=== PATIENT | female | born 1945 | race Caucasian/White ===

== ENCOUNTER → 2020-07-11 12:36 | Outpatient (CLI) | payer MEDICARE, SELFPAY ==
--- NOTE | ~2020-07-11 | XR_ITS ---
EXAMINATION: XR knee RT min 4V DATE: 07/11/2020 13:03 INDICATION: Right knee pain. TECHNIQUE: 4 views of right knee were obtained. COMPARISON: None. FINDINGS: Bone alignment is normal. No fracture. There is moderate osteoarthritis of medial compartme nt and mild osteoarthritis of lateral and patellofemoral compartments. There is a small knee joint ef fusion. IMPRESSION: 1. Moderate right knee osteoarthritis. 2. Small right knee joint effusion. Reviewed, dictated and finalized at location B.
== END ==
PROVIDERS: PCP Family Medicine Adolescent Medicine; Visit Provider Family Medicine Adolescent Medicine
DX: M17.11 Unilateral primary osteoarthritis, right knee (principal); M25.461 Effusion, right knee
CPT/HCPCS: 73564

== ENCOUNTER → 2020-11-20 12:30 | Outpatient (CLI) | payer MEDICARE, SELFPAY ==
--- NOTE | ~2020-11-20 | DEXA_ITS ---
Bone Density Report Name: Shay Crouch Age: 75 Sex: Female Ethnicity: White Date of : 1945 Indication: postmenopausal; screening for osteoporosis; height loss; prior fracture; Referring Provider: BRIAN HAWK Study: Bone densitometry was performed. Exam Date: November 20, 2020 Accession number: [id number] Bone Density: Region BMD T-score Z-score Classification Femoral Neck (Left) 0.711 -1.2 1.0 Osteopenia Total Hip (Left) 0.894 -0.4 1.5 Normal Femoral Neck (Right) 0.693 -1.4 0.8 Osteopenia Total Hip (Right) 0.907 -0.3 1.6 Normal Total Hip Mean 0.901 -0.4 1.6 Normal World Health Organization criteria for BMD impression classify patients as: Normal (T-score at or above -1.0), Osteopenia (T-score between -1.0 and -2.5), or Osteoporosis (T-score at or below -2.5). 10-year Fracture Risk: FRAX not reported because: Prior hip or vertebral fracture Previous Exams: Region Exam Age BMD T-score BMD Change BMD Change Date g/cm2 vs Baseline vs Previous Total Hip(Left) 11/20/2020 75 0.894 -0.4 -0.096 0.048* 03/25/2017 72 0.847 -0.8 -0.144 -0.060 10/02/2014 69 0.906 -0.3 -0.084* 0.015 08/25/2012 67 0.891 -0.4 -0.099 -0.135* 08/25/2009 64 1.027 0.7 0.036 0.036 07/06/2006 61 0.990 0.4 Total Hip(Right) 11/20/2020 75 0.907 -0.3 -0.089 0.059* 03/25/2017 72 0.848 -0.8 -0.148 -0.056* 10/02/2014 69 0.904 -0.3 -0.093 -0.045* 08/25/2012 67 0.949 0.1 -0.048 -0.073* 08/25/2009 64 1.022 0.7 0.025 0.025 07/06/2006 61 0.997 0.4 *Denotes significance at 95% confidence level, LSC for Total Hip = 0.027 g/cm2 Clinical Information Provided by Patient: Have had a previous hip or vertebral fracture Has had a low trauma fracture Has used the following medications: Vitamin D Patient maximum height was 64 Menopause Age: 43 Does not regularly consume dairy products Drinks caffeinated beverages Onset of menses at age 11 Number of children 0 Impression: The patient has low bone mass, based on the Right Femoral Neck T-score. The patient has risk factors, including: previous fracture. No significant bone loss was observed. Discussion: INCREASED RISK OF FRACTURE DUE TO HISTORY OF FRACTURE. The patient's previous fracture puts the patient at high risk of a future fracture.
== END ==
PROVIDERS: PCP Family Medicine Adolescent Medicine; Visit Provider Family Medicine Adolescent Medicine
DX: Z78.0 Asymptomatic menopausal state (principal); M85.852 Other specified disorders of bone density and structure, left thigh; M85.851 Other specified disorders of bone density and structure, right thigh
CPT/HCPCS: 77080

== ENCOUNTER → 2021-02-11 08:49 | Outpatient (CLI) | payer MEDICARE, SELFPAY ==
--- NOTE | ~2021-02-11 | XR_ITS ---
EXAMINATION: XR chest 2V DATE: 02/11/2021 09:06 INDICATION: Dyspnea. Chronic obstructive pulmonary disease. TECHNIQUE: Frontal and lateral views of the chest were obtained. COMPARISON: Chest 2 views 10/30/2018 FINDINGS: The chest demonstrates clear lungs without pneumonia, pleural effusion, or pneumothorax. Th e heart size is normal. There is an old healed fracture of distal right clavicle. There is an old hea led fracture of right seventh rib. There is mild chronic anterior wedging of T12 and L1 vertebral bod ies. IMPRESSION: 1. No acute cardiopulmonary disease. Reviewed, dictated and finalized at location B. URCE SPECIALIST
== END ==
PROVIDERS: PCP Family Medicine Adolescent Medicine; Visit Provider Family Medicine Adolescent Medicine
DX: R06.09 Other forms of dyspnea (principal); J44.9 Chronic obstructive pulmonary disease, unspecified
CPT/HCPCS: 71046

== ENCOUNTER 2021-03-27 09:01 | Outpatient (CLI) | payer MEDICARE, SELFPAY ==
--- NOTE | 2021-03-27 16:06 | WPDPFTINT ---
PFT Procedure Performed PFT Procedure Performed Flow Vol Loop Spirometry w/o Bronchodil PFT Interpretation This is a pulmonary function test with spirometry. The test was performed and results interpreted in accordance with the 2019 and 2005 ATS/ERS Task Force guidelines respectively using the Global Lung Function Initiative-2012 reference equations. Patient demonstrated good effort and cooperation. Reproducibility criteria were met. The quality of the spirometry maneuver was Grade A. Findings: Spirometry: The contour the inspiratory and expiratory flow tracing are normal. The FVC FVC is 2.48 L, 99% predicted. The FEV1 is 1.75 L, 91% predicted. The FEV1: FVC ratio 70%. In comparison to prior pulmonary function test on 11/28/2018 the FVC is unchanged from 2.45 L to 2.48 L. The FEV1 is unchanged from 1.94 L to 1.75 L. Impression: The spirometry is normal without evidence of an obstructive abnormality. in comparison to previous pulmonary function test on 11/28/2018 there has been no significant change in the FVC or FEV1. There are no prior studies for comparison
== END 2021-03-27 09:02 | disposition home or self-care (01) ==
PROVIDERS: PCP Family Medicine Adolescent Medicine; Visit Provider Family Medicine Adolescent Medicine
DX: J44.9 Chronic obstructive pulmonary disease, unspecified (principal); R06.00 Dyspnea, unspecified
CPT/HCPCS: 94375

== ENCOUNTER → 2022-01-11 14:41 | Outpatient (CLI) | payer MEDICARE, SELFPAY ==
--- NOTE | ~2022-01-11 | XR_ITS ---
XR lumbar spine 2-3V DATE: 01/11/2022 15:07 INDICATION: Low back pain TECHNIQUE: AP, lateral, coned lateral lumbosacral views COMPARISON: 09/14/2018 lumbar spine FINDINGS: Again noted are pedicle screws and rods and interbody spinal fusion at L4-5. Stable grade 2 anterolisthesis at L4-5. Status post vertebroplasty at L2 apparent compression fracture, stable since 09/14/2018. Severe degenerative disc disease at L1-2. Diffuse idiopathic skeletal hyperostosis of the thoracic spine. Diffuse osteopenia.. Extensive calcification of the abdominal aorta, without evidence of aneurysm. Status post cholecystectomy IMPRESSION: Little interval change since 09/14/2018 Reviewed, dictated and finalized at location A.
== END ==
PROVIDERS: PCP Family Medicine Adolescent Medicine; Visit Provider Family Medicine Adolescent Medicine
DX: M54.50 Low back pain, unspecified (principal)
CPT/HCPCS: 72100

== ENCOUNTER 2022-12-16 00:11 | Day surgery (SDC) | payer MEDICARE, SELFPAY ==
[2022-12-02 13:59] VITALS: BMI 35.5
--- NOTE | 2022-12-15 14:11 | PC.NURSE ---
pt called in to ask if she could have something to drink after midnight prior to her egd scheduled for tomorrow dec 16. clarified with her the only liquid she would be allowed would be sip of water with her levothyroxine. informed she would be getting iv fluids on arrival and she would be allowed water after procedure. voiced understanding.
[2022-12-16 07:39] VITALS: BP 124/68; PULSE 79; RESP 20; TEMP 36.5; O2SAT 96
--- NOTE | 2022-12-16 07:55 | PM.HPGS ---
History of Present Illness History of Present Illness Consent: Risks, benefits, and alternatives have been discussed and questions answered. Patient agrees to proceed with procedure. Chief complaint: Heartburn, Narrative: Shay Crouch is a 77 year old female Referred because of upper abdominal burning and cramping. She also had substernal discomfort. Patient reports taking a significant amount of ibuprofen. She discontinued this and has noticed some improvement over the last 4-5 weeks. Past medical history is significant for gastritis and duodenitis identified by Dr. Fernandez on previous EGD in 2015. Patient has been on pantoprazole 40mg p.o. b.i.d. since that time. She continues to take this medication. Patient referred today for EGD because of heartburn and epigastric discomfort. Review of Systems Review of Systems: Review of systems noncontributory. COUNTS INCLUDE 234 BEDS AT THE [facility] Past Medical History Medical History Alcoholism Anxiety Bipolar disorder COPD (chronic obstructive pulmonary disease) CPAP (continuous positive airway pressure) dependence Depression Diarrhea DISH (diffuse idiopathic skeletal hyperostosis) cxr 08/2017 Excessive thirst Fibroids Finger fracture Fuchs' corneal dystrophy GERD (gastroesophageal reflux disease) Glaucoma HTN (hypertension) Hypothyroid IBS (irritable bowel syndrome) Osteopenia CXR 08/2017 Osteoporosis Schizophrenia Sciatica of left side Sleep apnea Spinal stenosis Stress incontinence Unilateral primary osteoarthritis, right knee UTI (urinary tract infection) Surgical History Surgical History H/O bilateral oophorectomy partial H/O breast surgery fibroid/lump Right breast 1999 History of appendectomy History of bladder surgery urethra tied up for stress incontinence History of cholecystectomy 01/2016 History of discectomy History of hemorrhoidectomy History of laminectomy 2017 History of rectal surgery rectal prolapse repair Family History Family History Sibling Depression Heart disease Diabetes mellitus Father Diabetes mellitus Mother Oral cancer Grandparent CAD (coronary artery disease) Other Arthritis Hypertension Neuropathy Social History Social History Years smoked: 30 Smoking status: Former smoker Tobacco type: cigarettes Smoking end date: 05/17/97 Alcohol intake: former Substance use: never Substance use type: does not use Lack of Transportation: No Lack of Food: Never True Current Housing: I Have Housing Concerned About Future Housing: No Difficulty Paying Gas/Electric Bills: No Difficulty Paying for Meds: No Currently Unemployed: No Education: Bachelor's Degree Difficulty w/ Childcare or Family Care: No Living arrangements: alone Occupation/Education: unemployed Gender identity (if verbalized by the patient): Female Sexual Orientation (if Verbalized by the Patient): Straight or Heterosexual Spiritual care concerns: No Agree to blood products: Yes Meds Home Medications and Allergies Home Medications Medication Instructions Recorded Confirmed Type calcium-vitamin D3-vitamin K 500 1 tablet PO DAILY 05/04/21 12/02/22 History mg-200 unit-40 mcg tablet duloxetine 60 mg capsule,delayed 60 mg PO DAILY 05/04/21 12/02/22 History release trazodone 50 mg tablet 50 mg PO QHS PRN Sleep 05/04/21 12/02/22 History lutein 20 mg capsule See Rx Instructions .Route .COMPLEX 07/06/21 12/02/22 History olanzapine 20 mg tablet (Zyprexa) 20 mg PO QHS 07/06/21 12/02/22 History cholecalciferol (vitamin D3) 1,250 1,250 mcg PO WEEKLY #13 caps 10/27/22 12/02/22 Rx mcg (50,000 unit) capsule levothyroxine 50 mcg tablet See Rx Instructions .Route 11/04/22 12/02/22 Rx .COMPLEX
[2022-12-16] MEDS: LACTATED RINGERS 1,000 ML 150 ML IV CONT (07:58)
[2022-12-16 09:11] VITALS: BP 123/70; PULSE 69; RESP 19; O2SAT 98
[2022-12-16 09:21] VITALS: BP 127/74; PULSE 68; RESP 18; O2SAT 96
[2022-12-16 09:31] VITALS: BP 121/71; PULSE 61; RESP 19; O2SAT 98
== END 2022-12-16 09:34 | disposition home or self-care (01) ==
PROVIDERS: PCP Family Medicine Adolescent Medicine; Visit Provider Internal Medicine Gastroenterology
PROC: 0DJ08ZZ Inspection of Upper Intestinal Tract, Via Natural or Artificial Opening Endoscopic (ICD-10-PCS; CPT 43235; principal; 2022-12-16 09:00)
DX: R10.13 Epigastric pain (principal); F31.9 Bipolar disorder, unspecified; F41.9 Anxiety disorder, unspecified; J44.9 Chronic obstructive pulmonary disease, unspecified; M48.10 Ankylosing hyperostosis [Forestier], site unspecified; K21.9 Gastro-esophageal reflux disease without esophagitis; H40.9 Unspecified glaucoma; I10 Essential (primary) hypertension; E03.9 Hypothyroidism, unspecified; F20.9 Schizophrenia, unspecified; Z87.891 Personal history of nicotine dependence; Z87.19 Personal history of other diseases of the digestive system
CPT/HCPCS: 43239; 87081; J2704; J7120

== ENCOUNTER → 2023-04-27 15:41 | Outpatient (CLI) | payer MEDICARE, SELFPAY ==
--- NOTE | ~2023-04-27 | XR_ITS ---
EXAMINATION: XR chest 2V DATE: 04/27/2023 16:33 INDICATION: Chest pain. TECHNIQUE: Frontal and lateral views of the chest were obtained. COMPARISON: Chest 2 views 02/11/2021 FINDINGS: There is no pneumonia, pleural effusion, or pneumothorax. The heart size is normal. IMPRESSION: 1. No acute cardiopulmonary disease. Reviewed, dictated and finalized at location E. MAKER
--- NOTE | ~2023-04-27 | XR_ITS ---
EXAMINATION: XR_CERV2-3V_CR DATE: 04/27/2023 16:33 INDICATION: Neck pain. TECHNIQUE: 5 views of cervical spine including standing views were obtained. COMPARISON: CT cervical spine 09/01/2016 FINDINGS: There is 2 mm anterolisthesis of C6 on C7 and C7 on T1. Vertebral body heights are normal. There is mildly decreased disc height at C6-C7. There is interbody fusion at C2-C3. There is multilev el facet joint osteoarthritis, severe on the left at C3-C4 and C4-C5. No central canal stenosis or pr evertebral soft tissue swelling. IMPRESSION: 1. Mild cervical spondylosis. Reviewed, dictated and finalized at location E. Y LEVEL MANAGEMENT
== END ==
PROVIDERS: PCP Nurse Practitioner Family; Visit Provider Nurse Practitioner Family
DX: R07.89 Other chest pain (principal); M47.22 Other spondylosis with radiculopathy, cervical region
CPT/HCPCS: 71046; 72040

== ENCOUNTER 2023-05-20 08:58 | Outpatient (CLI) | payer MEDICARE, SELFPAY ==
--- NOTE | ~2023-05-20 | NM_ITS ---
EXAMINATION: NM miguel stress w perfusion DATE: 05/20/2023 11:37 INDICATION: Chest pain TECHNIQUE: Rest images were obtained following intravenous administration of 10 mCi Tc99m tetrofosmin (Myoview). The patient was infused intravenously with Lexiscan (Regadenoson). Then, 31.7 mCi Tc99m t etrofosmin (Myoview) was administered intravenously, and stress images were obtained. Data was recons tructed into short axis and horizontal and vertical long axis SPECT images. Gated SPECT images were a lso obtained. COMPARISON: None. FINDINGS: There is no definite reversible or fixed perfusion abnormality to suggest ischemia or infar ction. There is normal left ventricular chamber size, wall motion and ejection fraction. Left ventr icular ejection fraction measures >70%. IMPRESSION: 1. Normal myocardial perfusion at rest and during stress. 2. Left ventricular ejection fraction measuring >70%. Reviewed, dictated and finalized at location B. E PROMOTION ANALYST
--- NOTE | 2023-05-20 09:57 | EST_ITS ---
Patient Info Name: Shay Crouch Age: 78 years : 1945 Gender: Female Ht: 62 in Wt: 192 lbs BSA: 1.99 m2 HR: 76 bpm BP: 148 / 85 mmHg Heart Rhythm: Sinus Rhythm Exam Date: 05/20/2023 10:15 AM Exam Location: [facility] Patient Status: Outpatient Admit Date: 05/20/2023 Staff Ordering Physician: Astrid Padilla APRN Attending Provider: Astrid Padilla APRN Exercise Technologist: Carlee Howe CT Exercise Physician: Israel Kelly DO Exam Type: CA stress miguel w NM Study Info Indications R07.89 - Other chest pain A regadenoson stress test was performed. Summary 1. 1. Negative lexiscan stress test for ischemic ST changes by ECG criteria. 2. 2. Baseline hypertension. 3. 3. Nuclear scan to follow and will be reported separately. Please correlate with it. 4. 4. Patient informed of the above results. Protocol: Lexiscan Stress ECG Details Stage: REST Duration (min): 2 min : 57 sec HR (bpm): 73 SBP (mmHg): 148 DBP (mmHg): 85 Stage: REST Duration (min): 11 min : 55 sec HR (bpm): 71 SBP (mmHg): 148 DBP (mmHg): 85 Stage: STAGE 1 Duration (min): 1 min : 0 sec HR (bpm): 82 SBP (mmHg): 162 DBP (mmHg): 87 Stage: RECOVERY Duration (min): 1 min : 0 sec HR (bpm): 86 SBP (mmHg): 162 DBP (mmHg): 87 Stage: RECOVERY Duration (min): 2 min : 0 sec HR (bpm): 84 SBP (mmHg): 165 DBP (mmHg): 84 Stage: RECOVERY Duration (min): 2 min : 51 sec HR (bpm): 81 SBP (mmHg): 166 DBP (mmHg): 83 Rest HR: 71 bpm Peak HR: 87 bpm Rest Sys BP: 148 mmHg Peak Sys BP: 166 mmHg Max Pred HR: 140 bpm % Max Pred HR: 62 % Target HR: 119 bpm Max RPP: 14,442 bpm*mmHg Termination Reason: Completed protocol Cardiac Symptoms: Shortness of breath Total Time: 1 min : 0 sec Rest Bazan BP: 85 mmHg Peak Bazan BP: 83 mmHg Total Dose: 0.4 mg Resting ECG Sinus rhythm, RBBB. Stress ECG No ST changes. Arrhythmias None. Report Signatures
== END 2023-05-20 08:59 | disposition home or self-care (01) ==
PROVIDERS: PCP Nurse Practitioner Family; Visit Provider Nurse Practitioner Family
DX: R07.9 Chest pain, unspecified (principal); I10 Essential (primary) hypertension
CPT/HCPCS: 78452; 93017; A9502; J2785

== ENCOUNTER 2024-02-07 15:26 | Outpatient (CLI) | payer MEDICARE, SELFPAY ==
--- NOTE | ~2024-02-07 | MR_ITS ---
EXAMINATION: MR brain/brain stem wo/w con DATE: 02/07/2024 16:22 INDICATION: Dizziness and giddiness. TECHNIQUE: Magnetic resonance imaging (MRI) of the brain and brainstem was performed without and with 19 mL MultiHance intravenous contrast. COMPARISON: None. 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 There is no intracranial hemorrhage, acute infarction, or abnormal intracranial mass lesion. There are scattered areas of nonspecific inc reased T2-weighted signal intensity in the cerebral white matter, which is within normal limits for t he patient's age. The ventricles are normal in size. There is dependent fluid in left maxillary sinus . There are likely changes of ocular lens replacement surgeries. The internal auditory canals and inn er ears and tympanic cavities are normal. The mastoid air cells are normal. IMPRESSION: 1. 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 Reviewed, dictated and finalized at location A. D MANAGER
== END 2024-02-07 15:27 | disposition home or self-care (01) ==
LOC: MICIMG 15:26
PROVIDERS: PCP Chiropractor; Visit Provider Family Medicine
DX: R42 Dizziness and giddiness (principal)
CPT/HCPCS: 70553; A9577

== ENCOUNTER 2024-02-15 10:37 | Observation (INO) | payer MEDICARE, SELFPAY ==
[2024-02-15] VITALS (13 sets, daily range): BP systolic 111–148; BP diastolic 50–80; PULSE 62–82; RESP 15–22; TEMP 36.4–37.1; O2SAT 92–97; BMI 38.2
--- NOTE | ~2024-02-15 | XR_ITS ---
XR chest 2V Ordering provider: Sj Patterson MD History: 78 years Female with . chest pain, WEAKNESS, DIZZY, SOB . Comparison: None. FINDINGS: MEDIASTINUM: The cardiac silhouette is not enlarged. LUNGS: No infiltrates, effusions or pneumothorax. Vague opacity seen in the right lower lobe is most likely summation shadow. Repeat exam in 3 months advised. OTHER: No free air under the diaphragm. Degenerative spine. IMPRESSION: No acute cardiopulmonary pathology. Vague opacity in the right lower lobe is most likely summation shadow. Repeat exam in 3 months advise d. Reviewed, dictated and finalized at location [facility] [employer] IMPRESSION: No acute cardiopulmonary pathology. Vague opacity in the right lower lobe is most likely summation shadow. Repeat e xam in 3 months advised.
--- NOTE | 2024-02-15 10:39 | ECG_ITS ---
Test Date: 2024-02-15 10:46:49 Measurements Intervals [place] Rate: 86 P: 58 MA: 150 QRS: 79 QRSD: 146 T: 33 QT: 397 QTc: 475 Interpretive Statements SINUS RHYTHM RIGHT BUNDLE BRANCH BLOCK BASELINE ARTIFACT- I, III ABNORMAL ECG No previous ECG available for comparison Electronically Signed On 02-15-2024 10:55:46 DANCE STUDIO MANAGER by Israel Kelly D.O.
[2024-02-15 11:15] LABS: Basophils Percent Auto 0.4 % (0.2-1.2); Eosinophils Absolute Auto 0.1 K/mm3 (0-0.3); Eosinophils Percent Auto 1.2 % (0-4.4); Hemoglobin 13.7 g/dL (12.0-15.0); Immature Granulocyte Absolute 0.02 K/mm3 (0.00-0.031); Immature Granulocyte Percent A 0.2 % (0-0.5); Lymphocytes Absolute Auto 1.63 K/mm3 (0.9-3.2); Lymphocytes Percent Auto 16.4 % (18.3-44.2); Mean Corpuscular HGB Conc 34.3 g/dl (32-36); Mean Corpuscular Hemoglobin 29.5 pg (26-34); Mean Platelet Volume 10.3 fl (7.4-10.4); Monocytes Absolute Auto 0.6 K/mm3 (0.1-0.6); Monocytes Percent Auto 5.8 % (2.6-8.5); Neutrophils Absolute Auto 7.5 K/mm3 (1.3-6.7); Platelet Count Result 169 k/mm3 (150-375); Red Blood Count 4.65 M/mm3 (4.2-5.4); Red Cell Distribution Width 13.2 % (11.5-14.5); White Blood Count 9.9 K/mm3 (4.5-10.0)
[2024-02-15 11:26] LABS: INR 1.1
[2024-02-15 11:27] LABS: Alanine Aminotransferase 31 U/L (6-35); Albumin Level 4.2 g/dL (3.5-5.1); Alkaline Phosphatase 99 U/L (38-126); Anion Gap 6 mmol/L (4-12); Aspartate Amino Transferase 32 U/L (14-36); Bilirubin,Total 0.6 mg/dL (0.2-1.3); Blood Urea Nitrogen 14 mg/dL (7-17); Calcium 9.5 mg/dL (8.4-10.2); Carbon Dioxide 26 mmol/L (22-30); Chloride 104 mmol/L (98-107); Estimated CRCL calculation 56 ml/min; Estimated Glomerular Filt Rate > 60; Glucose 130 mg/dL (65-110); Lipase 64 U/L (23-300); Partial Thromboplastin Time 28.1 Seconds (22.3-36.8); Potassium 3.8 mmol/L (3.4-5.0); Sodium 136 mmol/L (137-145)
[2024-02-15 11:37] LABS: Troponin I < 0.012 ng/mL (0.000-0.034)
--- NOTE | 2024-02-15 13:39 | ECG_ITS ---
Test Date: 2024-02-15 14:12:05 Measurements Intervals [place] Rate: 70 P: 51 KS: 151 QRS: 75 QRSD: 138 T: 33 QT: 421 QTc: 457 Interpretive Statements SINUS RHYTHM RIGHT BUNDLE BRANCH BLOCK ABNORMAL ECG Compared to ECG 02/15/2024 10:46:49 No significant changes Electronically Signed On 02-15-2024 14:26:37 DIE FINISHER FORGING by Israel Kelly D.O.
--- NOTE | 2024-02-15 14:43 | ED.CHESTPAIN ---
HPI - Chest Pain General Chief Complaint: Chest Pain Stated Complaint: chest pain Time Seen by Provider: 02/15/24 13:17 Source: patient Mode of arrival: ambulatory Limitations: no limitations History of Present Illness HPI narrative: 78 years old white female came to the ED complaining of intermittent chest pressure type pain started yesterday noon, often on, radiating to the right shoulder and between shoulder blades. Patient denies aggravating or relieving factors. The symptoms started while sitting doing no physical activities. Patient received a report from her family doctor yesterday that her brain MRI showed that she have old infarction which probably make her feel stressed. History of GERD, bipolar, schizoaffective, hypothyroidism patient is not on anti-platelet or anticoagulant medication, history of recovered alcoholism years ago, stopped smoking cigarette 27 years ago. Patient been taking Tums without any improvement. Related Data Home Medications Medication Instructions Recorded Confirmed trazodone 50 mg tablet 50 mg PO QHS PRN Sleep 05/04/21 02/14/24 duloxetine 30 mg capsule,delayed 30 mg PO .every other day 09/16/23 02/14/24 release duloxetine 60 mg capsule,delayed 60 mg PO .every other day 09/16/23 02/14/24 release Metagenics Sinuplex PO PRN 02/14/24 olanzapine 10 mg tablet 10 mg PO DAILY 02/14/24 02/14/24 Allergies Allergy/AdvReac Type Severity Reaction Status Date / Time clonazepam Allergy Unknown Unknown Verified 02/14/24 10:16 diphenhydramine Allergy Unknown Unknown Verified 02/14/24 10:16 hydroxyzine Allergy Unknown Unknown Verified 02/14/24 10:16 prednisone Allergy Unknown MAKES Verified 02/14/24 10:16 PATIENT MANIC zolpidem Allergy Unknown Unknown Verified 02/14/24 10:16 Review of Systems Review of Systems: All systems reviewed & are unremarkable except as noted in HPI and below PMFSH Past Medical History Medical History Anxiety Bipolar disorder COPD (chronic obstructive pulmonary disease) CPAP (continuous positive airway pressure) dependence Depression Diarrhea DISH (diffuse idiopathic skeletal hyperostosis) cxr 08/2017 Excessive thirst Fibroids Finger fracture Fuchs' corneal dystrophy GERD (gastroesophageal reflux disease) Glaucoma HTN (hypertension) Hypothyroid IBS (irritable bowel syndrome) Osteopenia CXR 08/2017 Osteoporosis Schizophrenia Sciatica of left side Sleep apnea Spinal stenosis Stress incontinence Unilateral primary osteoarthritis, right knee UTI (urinary tract infection) Surgical History Surgical History H/O bilateral oophorectomy partial H/O breast surgery fibroid/lump Right breast 1999 History of appendectomy History of bladder surgery urethra tied up for stress incontinence History of cholecystectomy 01/2016 History of discectomy History of hemorrhoidectomy History of laminectomy 2016 History of rectal surgery rectal prolapse repair History of sinus surgery (07/2023) Balloon sinuuloplasty Family History Family History Sibling Depression Heart disease Diabetes mellitus Father Diabetes mellitus Mother Oral cancer Grandparent CAD (coronary artery disease) Other Arthritis Hypertension Neuropathy Social History Social History Years smoked: 30 Smoking status: Former smoker Tobacco type: cigarettes Smoking end date: 05/17/97 Alcohol intake: former Substance use: never Substance use type: does not use Lack of Transportation: No Lack of Food: Never True Current Housing: I Have Housing Concerned About Future Housing: No Difficulty Paying Gas/Electric Bills: No Difficulty Paying for Meds: No Currently Unemployed: No Education: Bachelor's Degree Difficulty w/ Childcare or Family Care: No Living arrangements: alone Occupation/Education: unemployed Gender identity (if verbalized by the patient): Female Sexual Orientation (if Verbalized by the Patient): Straight or Heterosexual Spiritual care concerns: No Agree to blood products: Yes Exam Narrative: General appearance: Well-developed, well-nourished Skin: Normal color Head: Normocephalic, nontraumatic Eyes: Clear conjunctiva ENT: Oropharynx normal, ears normal, nose normal Neck: Supple, nontender Chest and respiratory: Airway patent, no respiratory distress, no accessory muscle use Heart: Regular rate/rhythm Abdomen: Soft, nontender, no organomegaly, quiet bowel sounds Vascular: Normal peripheral pulses, normal capillary refill. Musculoskeletal: Normal range of motion, nontender back Neurologic: Alert and oriented ?3, [employer] is normal as tested, no gross motor deficit Course Vital Signs Vital signs: Vital Signs Oxygen Delivery Room Air 02/15/24 13:08 Pulse Rate 80 02/15/24 13:11 Respiratory Rate 15 02/15/24 13:11 Blood Pressure 131/67 02/15/24 13:11 Pulse Oximetry 95 02/15/24 13:11 Oxygen Delivery Room Air 02/15/24 13:08 MDM - Chest Pain MDM Narrative Medical decision making narrative: Patient came to the ED from home by private car with intermittent chest pain Vital signs are stable Physical examination showed no significant abnormality Differential diagnosis unstable angina, stress related symptoms, GERD flare, pulmonary embolism less likely, Blood workup today includes CBC, CMP, troponin, lipase showed no significant abnormality Chest x-ray showed no acute abnormality new EKG on arrival and 3 hours later showed no acute abnormalities Patient had brain MRI recently and showed that she does have old infarction. Which increases her risk for coronary artery disease Patient used to be heavy smoker and quit roughly 27 years ago, smoking still considerd a risk factors for coronary artery disease at this time. Admit to hospitalist, consult Cardiology Differential Diagnosis Differential diagnosis: Likely other (As above) Medical Records Data Attestation: I reviewed the patient's medical records. Lab Data Attestation: I reviewed the patient's lab results. 02/15/24 11:06 02/15/24 11:06 Labs: Lab Results 02/15/24 02/15/24 Range/Units 11:06 13:53 WBC 9.9 (4.5-10.0) K/mm3 RBC 4.65 (4.2-5.4) M/mm3 Hgb 13.7 (12.0-15.0) g/dL Hct 40.0 (37.0-47.0) % MCV 86.0 (80-100) fl MCH 29.5 (26-34) pg MCHC 34.3 (32-36) g/dl RDW 13.2 (11.5-14.5) % Plt Count 169 (150-375) k/mm3 MPV 10.3 (7.4-10.4) fl Immature Gran % (Auto) 0.2 (0-0.5) % Neut % (Auto) 76.0 H (45.5-73.1) % Lymph % (Auto) 16.4 L (18.3-44.2) % Bell % (Auto) 5.8 (2.6-8.5) % Eos % (Auto) 1.2 (0-4.4) % Baso % (Auto) 0.4 (0.2-1.2) % Lymph # (Auto) 1.63 (0.9-3.2) K/mm3 Bell # (Auto) 0.6 (0.1-0.6) K/mm3 Eos # (Auto) 0.1 (0-0.3) K/mm3 Baso # (Auto) 0.0 (0.0-0.1) K/mm3 Abs Immat Gran (auto) 0.02 (0.00-0.031) K/mm3 Absolute Neuts (auto) 7.5 H (1.3-6.7) K/mm3 Absolute Nucleated RBC 0.000 (0.0-0.012) K/mm3 Nucleated RBC % 0.0 (0.0-0.2) % PT 15.0 H (11.1-14.7) Seconds INR 1.1 APTT 28.1 (22.3-36.8) Seconds Sodium 136 L (137-145) mmol/L Potassium 3.8 (3.4-5.0) mmol/L Chloride 104 (98-107) mmol/L Carbon Dioxide 26 (22-30) mmol/L Anion Gap 6 (4-12) mmol/L BUN 14 (7-17) mg/dL Creatinine 0.70 (0.7-1.0) mg/dL Estim Creat Clear Calc 56 ml/min Estimated GFR > 60 (59 - ) Glucose 130 H (65-110) mg/dL Calcium 9.5 (8.4-10.2) mg/dL Total Bilirubin 0.6 (0.2-1.3) mg/dL AST 32 (14-36) U/L ALT 31 (6-35) U/L Alkaline Phosphatase 99 (38-126) U/L Troponin I < 0.012 Pending (0.000-0.034) ng/mL Total Protein 7.0 (6.3-8.2) g/dL Albumin 4.2 (3.5-5.1) g/dL Lipase 64 (23-300) U/L Imaging Data Radiologist's impression: Impressions Chest X-Ray 02/15/24 11:41 IMPRESSION: No acute cardiopulmonary pathology. Vague opacity in the right lower lobe is most likely summation shadow. Repeat exam in 3 months advised. ECG Data EKG #1: Attestation: I personally reviewed and interpreted this ECG as follows: ECG completion date: 02/15/24 Prior ECG tracings: not available for review Interpretation: Normal sinus rhythm at 86 beat per minute, right bundle-branch block, abnormal EKG EKG #2: Attestation: I personally reviewed and interpreted this ECG as follows: ECG completion date: 02/15/24 Prior ECG tracings: available for review Interpretation: Normal sinus rhythm at 70 beats per minute, right bundle-branch block, abnormal EKG, compared to EKG early today no significant changes Discharge Plan Discharge Clinical Impression: Chest pain Patient Disposition: Still a Patient Condition: Stable Prescriptions: No Action duloxetine 60 mg capsule,delayed release(DR/EC) 60 mg PO .every other day duloxetine 30 mg capsule,delayed release(DR/EC) 30 mg PO .every other day Metagenics Sinuplex PO PRN Rx Instructions: 1-3 tablets PRN olanzapine 10 mg tablet 10 mg PO DAILY scopolamine base 1 mg over 3 days patch 3 day 1 patch transdermal Q3D PRN (Reason: nausea and vomiting) Qty: 10 0RF ondansetron 4 mg tablet,disintegrating See Rx Instructions .ROUTE .COMPLEX Qty: 30 0RF Dose Instruction: DISSOLVE 1 TABLET BY MOUTH UP TO EVERY 8 HOURS NEEDED FOR NAUSEA OR FOR VOMITING Rx Instructions: DISSOLVE 1 TABLET BY MOUTH UP TO EVERY 8 HOURS NEEDED FOR NAUSEA OR FOR VOMITING trazodone 50 mg tablet 50 mg PO QHS PRN (Reason: Sleep) tamsulosin 0.4 mg capsule See Rx Instructions .ROUTE .COMPLEX Qty: 200 2RF Dose Instruction: TAKE 1 CAPSULE BY MOUTH TWICE DAILY Rx Instructions: TAKE 1 CAPSULE BY MOUTH TWICE DAILY levothyroxine 50 mcg tablet See Rx Instructions .ROUTE .COMPLEX Qty: 100 2RF Dose Instruction: TAKE 1 TABLET BY MOUTH DAILY Rx Instructions: TAKE 1 TABLET BY MOUTH DAILY pantoprazole 40 mg tablet,delayed release (DR/EC) 40 mg PO BID Qty: 200 2RF cholecalciferol (vitamin D3) 1,250 mcg (50,000 unit) capsule 1,250 mcg PO WEEKLY Qty: 13 2RF Follow-up/Referrals: Astrid Padilla, [employer] [Primary Care Provider] -
[2024-02-15 15:02] LABS: Troponin I < 0.012 ng/mL (0.000-0.034)
[2024-02-15] MEDS: METOPROLOL TARTRATE 25 MG TABLET PO (15:45)
--- NOTE | 2024-02-15 15:57 | PM.IMHP ---
H&P: HPI History of Present Illness Date/Time: 02/15/24 15:57 Chief Complaint: Chest Pain Narrative: 78 y/o F presents here with chest pain with PMH of COPD, depression, anxiety, GERD, HTN, hypothyroidism, IBS, schizophrenia, and sleep apnea on CPAP. The patient presents here from home for further evaluation of chest pain. She reports that she has been having intermittent chest pain since 1:30 p.m. yesterday. She was sitting and talking to a friend when the chest pain started. She describes the pain as a heaviness, initially more right to midline but now also left sided, radiation into her upper back between her shoulder blades, intermittent, lasts for approximately 10-20 minutes, may be aggravated by eating, and no alleviating factors. She trialed Tums at home with no relief given she initially attributed symptoms to her history of GERD. She reports no cardiac history. 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 She was given the news of the small old stroke yesterday (02/13), however she reports the chest pain was occurring prior to being told the results but she does report it worsened after she was told. Accompanying the chest pain is weakness and shakiness. Did have nausea yesterday which has since resolved. Denies fever, chills, vomiting, diarrhea, constipation. Initial VS at presentation: HR 82, RR 22, 143/71, and 95% on RA. ED workup showed: No leukocytosis, no anemia, INR 1.1, sodium 136, creatinine 0.7 and GFR >60, glucose 130, troponin negative x2, normal LFTs and lipase. CXR showed no acute cardiopulmonary pathology and a vague opacity in the right lower lobe which is most likely a summation shadow. Review of Systems Review of Systems: All systems reviewed & are unremarkable except as noted in HPI and below [facility] Past Medical History Medical History Anxiety Bipolar disorder COPD (chronic obstructive pulmonary disease) CPAP (continuous positive airway pressure) dependence Depression Diarrhea DISH (diffuse idiopathic skeletal hyperostosis) cxr 08/2017 Excessive thirst Fibroids Finger fracture Fuchs' corneal dystrophy GERD (gastroesophageal reflux disease) Glaucoma HTN (hypertension) Hypothyroid IBS (irritable bowel syndrome) Osteopenia CXR 08/2017 Osteoporosis Schizophrenia Sciatica of left side Sleep apnea Spinal stenosis Stress incontinence Unilateral primary osteoarthritis, right knee UTI (urinary tract infection) Surgical History Surgical History H/O bilateral oophorectomy partial H/O breast surgery fibroid/lump Right breast 1999 History of appendectomy History of bladder surgery urethra tied up for stress incontinence History of cholecystectomy 01/2016 History of discectomy History of hemorrhoidectomy History of laminectomy 2016 History of rectal surgery rectal prolapse repair History of sinus surgery (07/2023) Balloon sinuuloplasty Family History Family History Sibling Depression Heart disease Diabetes mellitus Father Diabetes mellitus Mother Oral cancer Grandparent CAD (coronary artery disease) Other Arthritis Hypertension Neuropathy Social History Social History Years smoked: 30 Smoking status: Former smoker Tobacco type: cigarettes Smoking end date: 05/17/97 Alcohol intake: former Substance use: never Substance use type: does not use Do You Feel Safe in your Home?: Yes Lack of Transportation: No Lack of Food: Never True Current Housing: I Have Housing Concerned About Future Housing: No Difficulty Paying Gas/Electric Bills: No Difficulty Paying for Meds: No Currently Unemployed: No Education: Bachelor's Degree Difficulty w/ Childcare or Family Care: No Living arrangements: alone Occupation/Education: unemployed Gender identity (if verbalized by the patient): Female Sexual Orientation (if Verbalized by the Patient): Straight or Heterosexual Spiritual care concerns: No Agree to blood products: Yes Meds Home Medications and Allergies Home Medications Medication Instructions Recorded Confirmed Type trazodone 50 mg tablet 50 mg PO QHS PRN Sleep 05/04/21 02/15/24 History levothyroxine 50 mcg tablet See Rx Instructions .Route 08/14/23 02/15/24 Rx .COMPLEX #100 tabs tamsulosin 0.4 mg capsule See Rx Instructions .Route 08/14/23 02/15/24 Rx .COMPLEX #200 caps duloxetine 30 mg capsule,delayed 30 mg PO .every other day 09/16/23 02/15/24 History release duloxetine 60 mg capsule,delayed 60 mg PO .every other day 09/16/23 02/15/24 History release pantoprazole 40 mg tablet,delayed 40 mg PO BID #200 tabs 10/25/23 02/15/24 Rx release cholecalciferol (vitamin D3) 1,250 1,250 mcg PO WEEKLY #13 caps 11/25/23 02/15/24 Rx mcg (50,000 unit) capsule Metagenics Sinuplex 1 - 3 tablet PO Q8H PRN Sinus 02/14/24 02/15/24 History Symptoms olanzapine 10 mg tablet 10 mg PO QHS 02/14/24 02/15/24 History ondansetron 4 mg disintegrating See Rx Instructions .Route 02/14/24 02/15/24 Rx tablet .COMPLEX #30 ea scopolamine base 1 mg over 3 days 1 patch transdermal Q3D PRN nausea 02/14/24 02/15/24 Rx transdermal patch and vomiting #10 ea Allergies Allergy/AdvReac Type Severity Reaction Status Date / Time clonazepam Allergy Unknown Unknown Verified 02/14/24 10:16 diphenhydramine Allergy Unknown Unknown Verified 02/14/24 10:16 hydroxyzine Allergy Unknown Unknown Verified 02/14/24 10:16 prednisone Allergy Unknown MAKES Verified 02/14/24 10:16 PATIENT MANIC zolpidem Allergy Unknown Unknown Verified 02/14/24 10:16 Vital Signs Vital Signs - 24 hr 02/15/24 13:08 02/15/24 13:11 02/15/24 12:43 Pulse Rate 80 82 Respiratory Rate 15 22 H Blood Pressure 131/67 143/71 H Pulse Oximetry 95 95 Oxygen Delivery Room Air 02/15/24 12:46 02/15/24 13:01 02/15/24 13:32 Pulse Rate 82 78 79 Respiratory Rate 15 15 18 Blood Pressure 148/72 H 131/67 124/66 Pulse Oximetry 97 96 94 Oxygen Delivery 02/15/24 13:46 02/15/24 15:16 02/15/24 15:34 Pulse Rate 78 76 75 Respiratory Rate 17 22 H 18 Blood Pressure 125/58 L 119/50 L 111/74 Pulse Oximetry 96 94 95 Oxygen Delivery 02/15/24 15:45 Pulse Rate 75 Respiratory Rate Blood Pressure Pulse Oximetry Oxygen Delivery Exam Const: General: comfortable and no acute distress Other: , female, nontoxic appearance HENMT: Face/Nose/Sinus: Normal nares present Mouth: Yes moist mucous membranes Eyes: General: appearance normal, both eyes and all related structures Sclera: sclerae normal Pupils: Equal, round and reactive pupils present EOM: EOMs intact bilaterally Resp: Effort & Inspection: normal respiratory effort Auscultation: clear to auscultation bilaterally Cardio: Rate: regular rate Rhythm: regular rhythm Other: S1-S2 present without murmur, rub, ectopy GI: Other: Abdomen soft, nondistended, nontender. Normoactive bowel sounds in all quadrants. Skin: General skin exam: normal color and no rashes or lesions noted Wounds: no wounds Neuro: Speech: normal speech Motor exam (neuro): 5/5 motor strength present throughout Sensory Exam: normal sensation Other: A&O x4 Extrem: General: normal to inspection Psych: Mental Status: mental status grossly normal Affect: normal affect Other: Good insight and judgment, pleasant H&P: Results Labs Labs: Short CBC 02/15/24 Range/Units 11:06 WBC 9.9 (4.5-10.0) K/mm3 Hgb 13.7 (12.0-15.0) g/dL Hct 40.0 (37.0-47.0) % Plt Count 169 (150-375) k/mm3 BMP 02/15/24 11:06 Sodium 136 L Potassium 3.8 Chloride 104 Carbon Dioxide 26 BUN 14 Creatinine 0.70 Glucose 130 H Calcium 9.5 Cardiac Enzymes 02/15/24 02/15/24 Range/Units 11:06 13:53 Troponin I < 0.012 < 0.012 (0.000-0.034) ng/mL Liver Function 02/15/24 Range/Units 11:06 Total Bilirubin 0.6 (0.2-1.3) mg/dL AST 32 (14-36) U/L ALT 31 (6-35) U/L Alkaline Phosphatase 99 (38-126) U/L Albumin 4.2 (3.5-5.1) g/dL Assessment and Plan Assessment and plan (1) Chest pain: Qualifiers: Chest pain type: unspecified Qualified Code(s): R07.9 - Chest pain, unspecified Code(s): R07.9 - Chest pain, unspecified Status: Acute Assessment and Plan: - EKG, initial: Sinus rhythm, RBBB, baseline artifact. - EKG, repeat: No significant changes compared to previous done earlier today. - CXR: No acute cardiopulmonary pathology. Vague opacity in the right lower lobe is most likely summation shadow. Repeat exam in 3 months advised. - Troponin: <0.012 x3 - ASA 324 given, SL nitro PRN - trial of GI cocktail yielded no relief - cardiology consulted, awaiting recs - monitor labs, add lipid panel - stress test, previous (05/2023): 1. Normal myocardial perfusion at rest and during stress. 2. Left ventricular ejection fraction measuring >70%. - telemetry monitoring - DDx: unstable angina, GERD, stress response (2) GERD (gastroesophageal reflux disease): Qualifiers: Esophagitis presence: esophagitis presence not specified Qualified Code(s): K21.9 - Gastro-esophageal reflux disease without esophagitis Code(s): K21.9 - Gastro-esophageal reflux disease without esophagitis Status: Chronic Assessment and Plan: - continue home medications: pantoprazole 40 mg p.o. b.i.d. - trialed GI cocktail, no improvement (3) HTN (hypertension): Qualifiers: Hypertension type: primary hypertension Qualified Code(s): I10 - Essential (primary) hypertension Code(s): I10 - Essential (primary) hypertension Status: Chronic Assessment and Plan: - chronic, currently 111/74 - not currently on medications - monitor (4) Obstructive sleep apnea: Code(s): G47.33 - Obstructive sleep apnea (adult) (pediatric) Status: Chronic Assessment and Plan: - continue home CPAP Plan Diet: Heart healthy GI Prophylaxis: Continue home p.o. pantoprazole DVT Prophylaxis: SCDs Lines: Peripheral Code Status: Full code Quality VTE Prophylaxis VTE prophylaxis: mechanical ordered Hospitalist [facility] Advance Care Plan I have confirmed that the patient's Advanced Care Plan is present, code status is documented, or surrogate decision maker is listed in patient medical record.: Yes Medication Reconciliation I have utilized all available resources to obtain, update and review the patients current medications (includes all prescriptions, OTC, herbals, cannabis, and nutritional supplements).: Yes
[2024-02-15] MEDS: BELLADONNA ALK/PHENOB ELIX 10 ML, MAG HYDROX/ALUMINUM HYD/SIMETH 30 ML, LIDOCAINE HCL 2... PO (16:07)
--- NOTE | 2024-02-15 16:40 | ADMGEN ---
This patient, Shay Crouch, was admitted to 2 Medical Room 242-. Patient/family oriented to hospital policies and general routines including ID bracelet, bed and alarms, visiting hours, pain management, procedures, bathroom and other care routines, personal items, smoking policy, room service/diet, and visiting hours. Information on how to activate the Rapid Response Team has been discussed. Patient/Family are encouraged to report perceived risks to care and to ask questions if they do not understand what they are told or what they should do.
[2024-02-15] MEDS: ACETAMINOPHEN 325 MG TABLET 650 MG PO (17:06)
[2024-02-15 17:36] LABS: Troponin I < 0.012 ng/mL (0.000-0.034)
[2024-02-15 21:57] LABS: Troponin I < 0.012 ng/mL (0.000-0.034)
[2024-02-15] MEDS: traZODone HCL 50 MG TABLET PO (23:02)
[2024-02-15] MEDS: PANTOPRAZOLE 40 MG TABLET PO (23:02)
[2024-02-15] MEDS: TAMSULOSIN HCL 0.4 MG CAPSULE PO (23:02)
[2024-02-15] MEDS: OLANZapine 5 MG TABLET 10 MG PO (23:02)
[2024-02-16] VITALS: PULSE 58
[2024-02-16 03:35] VITALS: PULSE 60; O2SAT 93
[2024-02-16 04:00] VITALS: PULSE 65
[2024-02-16 04:43] VITALS: BP 101/54; PULSE 65; RESP 20; TEMP 36.5; O2SAT 95
[2024-02-16 05:22] LABS: Basophils Absolute Auto 0.1 K/mm3 (0.0-0.1); Basophils Percent Auto 0.7 % (0.2-1.2); Eosinophils Absolute Auto 0.2 K/mm3 (0-0.3); Eosinophils Percent Auto 3.3 % (0-4.4); Hematocrit 39.2 % (37.0-47.0); Hemoglobin 13.5 g/dL (12.0-15.0); Immature Granulocyte Absolute 0.02 K/mm3 (0.00-0.031); Immature Granulocyte Percent A 0.3 % (0-0.5); Lymphocytes Absolute Auto 2.09 K/mm3 (0.9-3.2); Lymphocytes Percent Auto 28.4 % (18.3-44.2); Mean Corpuscular HGB Conc 34.4 g/dl (32-36); Mean Corpuscular Hemoglobin 29.9 pg (26-34); Mean Corpuscular Volume 86.9 fl (80-100); Mean Platelet Volume 11.1 fl (7.4-10.4); Monocytes Absolute Auto 0.8 K/mm3 (0.1-0.6); Monocytes Percent Auto 10.5 % (2.6-8.5); Neutrophils Absolute Auto 4.2 K/mm3 (1.3-6.7); Neutrophils Percent Auto 56.8 % (45.5-73.1); Platelet Count Result 169 k/mm3 (150-375); Red Blood Count 4.51 M/mm3 (4.2-5.4); Red Cell Distribution Width 13.3 % (11.5-14.5); White Blood Count 7.4 K/mm3 (4.5-10.0)
[2024-02-16] MEDS: LEVOTHYROXINE SODIUM 50 MCG TABLET PO (05:24)
[2024-02-16 05:32] LABS: Anion Gap 8 mmol/L (4-12); Blood Urea Nitrogen 18 mg/dL (7-17); Carbon Dioxide 27 mmol/L (22-30); Chloride 101 mmol/L (98-107); Cholesterol 196 mg/dL (0-200); Estimated CRCL calculation 45 ml/min; Estimated Glomerular Filt Rate 60; Glucose 111 mg/dL (65-110); HDL Direct 49 mg/dL; Potassium 4.1 mmol/L (3.4-5.0); Sodium 136 mmol/L (137-145); Triglycerides 97 mg/dL (<150)
[2024-02-16 05:42] LABS: LDL Cholesterol Direct 113 mg/dL
[2024-02-16 08:00] VITALS: PULSE 64
[2024-02-16] MEDS: PANTOPRAZOLE 40 MG TABLET PO (08:11)
[2024-02-16] MEDS: TAMSULOSIN HCL 0.4 MG CAPSULE PO (08:11)
[2024-02-16] MEDS: ASPIRIN 81 MG CHEWABLE TABLET PO (08:11)
[2024-02-16] MEDS: DULoxetine HCL 30 MG CAPSULE.DR PO (08:16)
[2024-02-16 12:00] VITALS: PULSE 79
--- NOTE | 2024-02-16 12:20 | P.CONCA_ITS ---
Assessment and Plan Assessment and plan (1) Chest pain: Qualifiers: Chest pain type: unspecified Qualified Code(s): R07.9 - Chest pain, unspecified Code(s): R07.9 - Chest pain, unspecified Status: Acute Plan 78-year-old lady with an atypical chest pain syndrome. Despite her age she does not have much in the way of coronary risk factors. She has obviously had episodes of intermittent chest pain for some time now as a nuclear stress test was requested and performed in May of this year at which was unremarkable. Despite the symptoms there is no electrocardiographic or troponin at evidence of an acute coronary syndrome. She does not report any other cardiac symptoms. At this time I do not believe we need to look initiate another ischemia workup the symptoms are atypical and she did have a negative stress test 7 months ago. Clemente Leigh MD [facility] History of Present Illness History of Present Illness Consult date/time: 02/16/24 12:20 Reason For Visit: Chest Pain Narrative: This is an 78-year-old woman I am seeing at the request of the hospitalist because of chest pain. I have no previous knowledge of this patient prior to this consultation. She is not known to have cardiovascular disease and she came to the hospital was admitted yesterday because of chest pain she describes a right inframammary pain that radiated to the region of her right shoulder and into the right arm for a short time. The patient's symptoms were associated without exertion she did not have any shortness of breath diaphoresis nausea or vomiting associated with any of this. The symptoms resolved sounds like on their own after a short time. In the emergency room she came for evaluation she was found to have sinus rhythm bench block which is known to be chronic on her electrocardiogram. She was admitted for observation overnight. She has had 4 troponin levels done which are all normal. She feels well at this time and is hoping to be discharged. The patient obviously has been having episodes of some chest pain for some time which she cannot recall. I pointed out to her that she had a Lexiscan nuclear stress test done in this hospital supervised by Dr. Kelly in May of this year which was unremarkable. Presumably this was ordered by her PCP. She denies any knowledge of hypertension diabetes or dyslipidemia. She reports that she has significant difficulty with degenerative joint disease and because of that and obesity she has a hard time getting around but she does live independently in her own home. Review of Systems Constitutional: Constitutional: Reports lethargy Eyes: Eyes: Reports no additional eye complaints ENT: Reports system reviewed and no additional complaints, except as documented Cardiovascular: Cardiovascular: Reports as per HPI Respiratory: Respiratory: Reports dyspnea on exertion Gastrointestinal: Gastrointestinal: Reports no additional gastrointestinal complaints Musculoskeletal: Musculoskeletal: Reports as per HPI and Reports arthralgias Comments: Chronic knee pain Integumentary/Breasts: Skin/Breast: Reports system reviewed and no additional complaints, except as docu Neurologic: Reports system reviewed and no additional complaints, except as documented Endocrine: Endocrine: Reports no additional endocrine complaints Hematologic/Lymphatic: Hematologic/Lymphatic: Reports no additional hematologic/lymphatic complaints [facility] Past Medical History Medical History Anxiety Bipolar disorder COPD (chronic obstructive pulmonary disease) CPAP (continuous positive airway pressure) dependence Depression Diarrhea DISH (diffuse idiopathic skeletal hyperostosis) cxr 08/2017 Excessive thirst Fibroids Finger fracture Fuchs' corneal dystrophy GERD (gastroesophageal reflux disease) Glaucoma HTN (hypertension) Hypothyroid IBS (irritable bowel syndrome) Osteopenia CXR 08/2017 Osteoporosis Schizophrenia Sciatica of left side Sleep apnea Spinal stenosis Stress incontinence Unilateral primary osteoarthritis, right knee UTI (urinary tract infection) Surgical History Surgical History H/O bilateral oophorectomy partial H/O breast surgery fibroid/lump Right breast 1999 History of appendectomy History of bladder surgery urethra tied up for stress incontinence History of cholecystectomy 01/2016 History of discectomy History of hemorrhoidectomy History of laminectomy 2017 History of rectal surgery rectal prolapse repair History of sinus surgery (07/2023) Balloon sinuuloplasty Family History Family History Sibling Depression Heart disease Diabetes mellitus Father Diabetes mellitus Mother Oral cancer Grandparent CAD (coronary artery disease) Other Arthritis Hypertension Neuropathy Social History Social History Years smoked: 30 Smoking status: Former smoker Tobacco type: cigarettes Smoking end date: 05/17/97 Alcohol intake: former Substance use: never Substance use type: does not use Do You Feel Safe in your Home?: Yes Lack of Transportation: No Lack of Food: Never True Current Housing: I Have Housing Concerned About Future Housing: No Difficulty Paying Gas/Electric Bills: No Difficulty Paying for Meds: No Currently Unemployed: No Education: Bachelor's Degree Difficulty w/ Childcare or Family Care: No Living arrangements: alone Occupation/Education: unemployed Gender identity (if verbalized by the patient): Female Sexual Orientation (if Verbalized by the Patient): Straight or Heterosexual Spiritual care concerns: No Agree to blood products: Yes Meds Home Medications and Allergies Home Medications Medication Instructions Recorded Confirmed Type trazodone 50 mg tablet 50 mg PO QHS PRN Sleep 05/04/21 02/15/24 History levothyroxine 50 mcg tablet See Rx Instructions .Route 08/14/23 02/15/24 Rx .COMPLEX #100 tabs tamsulosin 0.4 mg capsule See Rx Instructions .Route 08/14/23 02/15/24 Rx .COMPLEX #200 caps duloxetine 30 mg capsule,delayed 30 mg PO .every other day 09/16/23 02/15/24 History release duloxetine 60 mg capsule,delayed 60 mg PO .every other day 09/16/23 02/15/24 History release pantoprazole 40 mg tablet,delayed 40 mg PO BID #200 tabs 10/25/23 02/15/24 Rx release cholecalciferol (vitamin D3) 1,250 1,250 mcg PO WEEKLY #13 caps 11/25/23 02/15/24 Rx mcg (50,000 unit) capsule [employer]ics Sinuplex 1 - 3 tablet PO Q8H PRN Sinus 02/14/24 02/15/24 History Symptoms olanzapine 10 mg tablet 10 mg PO QHS 02/14/24 02/15/24 History ondansetron 4 mg disintegrating See Rx Instructions .Route 02/14/24 02/15/24 Rx tablet .COMPLEX #30 ea scopolamine base 1 mg over 3 days 1 patch transdermal Q3D PRN nausea 02/14/24 02/15/24 Rx transdermal patch and vomiting #10 ea Allergies Allergy/AdvReac Type Severity Reaction Status Date / Time clonazepam Allergy Unknown Unknown Verified 02/14/24 10:16 diphenhydramine Allergy Unknown Unknown Verified 02/14/24 10:16 hydroxyzine Allergy Unknown Unknown Verified 02/14/24 10:16 prednisone Allergy Unknown MAKES Verified 02/14/24 10:16 PATIENT MANIC zolpidem Allergy Unknown Unknown Verified 02/14/24 10:16 Vital Signs Vital Signs - 24 hr 02/15/24 13:08 02/15/24 13:11 02/15/24 12:43 Temperature Pulse Rate 80 82 Respiratory Rate 15 22 H Blood Pressure 131/67 143/71 H Pulse Oximetry 95 95 Oxygen Delivery Room Air 02/15/24 12:46 02/15/24 13:01 02/15/24 13:32 Temperature Pulse Rate 82 78 79 Respiratory Rate 15 15 18 Blood Pressure 148/72 H 131/67 124/66 Pulse Oximetry 97 96 94 Oxygen Delivery 02/15/24 13:46 02/15/24 15:16 02/15/24 15:34 Temperature Pulse Rate 78 76 75 Respiratory Rate 17 22 H 18 Blood Pressure 125/58 L 119/50 L 111/74 Pulse Oximetry 96 94 95 Oxygen Delivery 02/15/24 15:45 02/15/24 16:20 02/15/24 20:16 Temperature 37.1 C 36.4 C Pulse Rate 75 67 62 Respiratory Rate 17 16 Blood Pressure 139/80 127/62 Pulse Oximetry 92 94 Oxygen Delivery 02/15/24 20:00 02/15/24 20:00 02/15/24 23:00 Temperature Pulse Rate 62 62 62 Respiratory Rate 16 Blood Pressure Pulse Oximetry 94 94 Oxygen Delivery Room Air 02/15/24 23:00 02/16/24 00:00 02/16/24 04:43 Temperature 36.5 C Pulse Rate 58 L 65 Respiratory Rate 20 Blood Pressure 101/54 L Pulse Oximetry 94 95 Oxygen Delivery Room Air 02/16/24 03:35 02/16/24 04:00 02/16/24 08:00 Temperature Pulse Rate 60 65 Respiratory Rate Blood Pressure Pulse Oximetry 93 Oxygen Delivery Room Air 02/16/24 08:00 Temperature Pulse Rate 64 Respiratory Rate Blood Pressure Pulse Oximetry Oxygen Delivery Exam Const: General: comfortable and no acute distress Other: Pleasant obese lady appearing her stated age no distress she is watching television when I entered the room to see her HENMT: Mouth: Yes moist mucous membranes Eyes: Sclera: sclerae normal Neck: Neck: supple Other: JVD difficult to assess given her thick neck Resp: Effort & Inspection: normal respiratory effort Auscultation: clear to auscultation bilaterally Cardio: Rate: regular rate Rhythm: regular rhythm Other: Soft grade 1-2 holosystolic apical murmur is noted no diastolic murmur no gallop GI: GI Palp: Yes Soft to palpation Auscultation: normal bowel sounds Skin: General skin exam: normal color Neuro: Other: Alert and oriented x3 Extrem: General: normal to inspection Results Labs and Meds 02/16/24 04:40 02/16/24 04:40 Lab results: Cardiac Enzymes 02/15/24 02/15/24 02/15/24 Range/Units 13:53 17:05 21:27 Troponin I < 0.012 < 0.012 < 0.012 (0.000-0.034) ng/mL Lipids 02/16/24 Range/Units 04:40 Triglycerides 97 (<150) mg/dL Cholesterol 196 (0-200) mg/dL CBC 02/16/24 Range/Units 04:40 WBC 7.4 (4.5-10.0) K/mm3 RBC 4.51 (4.2-5.4) M/mm3 Hgb 13.5 (12.0-15.0) g/dL Hct 39.2 (37.0-47.0) % Plt Count 169 (150-375) k/mm3 Lymph # (Auto) 2.09 (0.9-3.2) K/mm3 [place] # (Auto) 0.8 H (0.1-0.6) K/mm3 Eos # (Auto) 0.2 (0-0.3) K/mm3 Baso # (Auto) 0.1 (0.0-0.1) K/mm3 Comprehensive Metabolic Panel 02/16/24 Range/Units 04:40 Sodium 136 L (137-145) mmol/L Potassium 4.1 (3.4-5.0) mmol/L Chloride 101 (98-107) mmol/L Carbon Dioxide 27 (22-30) mmol/L BUN 18 H (7-17) mg/dL Creatinine 0.90 (0.7-1.0) mg/dL Glucose 111 H (65-110) mg/dL Calcium 9.0 (8.4-10.2) mg/dL Intake and Output 02/15/24 02/16/24 02/16/24 23:59 07:59 15:59 Intake Total 240 500 240 Output Total 750 Balance 240 -250 240 Intake: Oral 240 500 240 Output: Urine 750 Other: # Unmeasured Voids 1 1
--- NOTE | 2024-02-16 14:05 | PM.DS ---
DS: Admitting Diagnosis Discharge Date 02/16/2024 Admitting Diagnosis Chest Discomfort DS: Discharge Diagnosis Discharge Diagnosis (1) Chest pain: Qualifiers: Chest pain type: unspecified Qualified Code(s): R07.9 - Chest pain, unspecified Code(s): R07.9 - Chest pain, unspecified Status: Acute Assessment and Plan: - EKG, initial: Sinus rhythm, RBBB, baseline artifact. - EKG, repeat: No significant changes compared to previous done earlier today. - CXR: No acute cardiopulmonary pathology. Vague opacity in the right lower lobe is most likely summation shadow. Repeat exam in 3 months advised. - Troponin: <0.012 x3 - ASA 324 given, SL nitro PRN - trial of GI cocktail yielded no relief - cardiology consulted and symptoms suspected to be non-cardiac. - Patient with negative stress test 06/11. - Cleared for discharge per plumbing manager. - Previous stress test (05/2023): 1. Normal myocardial perfusion at rest and during stress. 2. Left ventricular ejection fraction measuring >70%. - Maintained SR on telemetry monitoring (2) GERD (gastroesophageal reflux disease): Qualifiers: Esophagitis presence: esophagitis presence not specified Qualified Code(s): K21.9 - Gastro-esophageal reflux disease without esophagitis Code(s): K21.9 - Gastro-esophageal reflux disease without esophagitis Status: Chronic Assessment and Plan: - continue home medications: pantoprazole 40 mg p.o. b.i.d. - trialed GI cocktail, no improvement (3) HTN (hypertension): Qualifiers: Hypertension type: primary hypertension Qualified Code(s): I10 - Essential (primary) hypertension Code(s): I10 - Essential (primary) hypertension Status: Chronic Assessment and Plan: - Remained well controlled inpatient. (4) Obstructive sleep apnea: Code(s): G47.33 - Obstructive sleep apnea (adult) (pediatric) Status: Chronic Assessment and Plan: - continued on home CPAP with sleep. Plan Discharge Home. DS: Summary Hospital Course Reason for hospitalization: Chest Discomfort Hospital Course: Patient presented to the hospital with reports of chest discomfort that she states she's been having for years. Patient attributes her symptoms to acid reflux mainly but states that symptoms were not relieved by pantoprazole and home remedies that always assist. Pt with 3 negative troponin, no acute ST or T-Wave abnormalities on EKG, and maintained SR on telemetry. Patient also had a negative stress-test 06/11. Symptoms are currently resolved and patient has been cleared for discharge by the plumbing manager, with symptoms suspected to be likely non-cardiac. Patient wants to go home and states will follow-up with her PCP outpatient for long-term symptoms mgt. No acute distress noted or reported prior to discharge, and pt is medically stable for discharge. Status at Discharge Functional status at discharge: independent ambulation Overall status at discharge: patient is back to baseline Time Spent with Patient Time attestation: Total time spent providing and/or coordinating discharge services: Time spent: Less than 30 minutes Exam Narrative: General: Well appearing, no acute distress. HEENT: Atraumatic, PERRL, EOM, moist mucosa. NECK: Supple. Lungs: Clear bilaterally. Heart: RRR, no murmurs. Abdomen: Soft, non-tender, non-distended, +ve bowel sounds X4 quadrants. Extremities: No edema. 2+ Radial and pedal pulses. Skin: Warm and dry. No lesions noted. Neuro: Well oriented, CN II-XII grossly intact. Psych: Pleasant and co-operative. DS: Data Data Completed and Pending Labs on day of discharge: Labs from last 24 hours 02/16/24 02/15/24 02/15/24 04:40 21:27 17:05 WBC 7.4 RBC 4.51 Hgb 13.5 Hct 39.2 MCV 86.9 MCH 29.9 MCHC 34.4 RDW 13.3 Plt Count 169 MPV 11.1 H Immature Gran % (Auto) 0.3 Neut % (Auto) 56.8 Lymph % (Auto) 28.4 [place] % (Auto) 10.5 H Eos % (Auto) 3.3 Baso % (Auto) 0.7 Lymph # (Auto) 2.09 [place] # (Auto) 0.8 H Eos # (Auto) 0.2 Baso # (Auto) 0.1 Abs Immat Gran (auto) 0.02 Absolute Neuts (auto) 4.2 Absolute Nucleated RBC 0.000 Nucleated RBC % 0.0 Sodium 136 L Potassium 4.1 Chloride 101 Carbon Dioxide 27 Anion Gap 8 BUN 18 H Creatinine 0.90 Estim Creat Clear Calc 45 Estimated GFR 60 Glucose 111 H Calcium 9.0 Troponin I < 0.012 < 0.012 Triglycerides 97 Cholesterol 196 LDL Cholesterol Direct 113 HDL Direct 49 02/15/24 13:53 WBC RBC Hgb Hct MCV MCH MCHC RDW Plt Count MPV Immature Gran % (Auto) Neut % (Auto) Lymph % (Auto) [place] % (Auto) Eos % (Auto) Baso % (Auto) Lymph # (Auto) [place] # (Auto) Eos # (Auto) Baso # (Auto) Abs Immat Gran (auto) Absolute Neuts (auto) Absolute Nucleated RBC Nucleated RBC % Sodium Potassium Chloride Carbon Dioxide Anion Gap BUN Creatinine Estim Creat Clear Calc Estimated GFR Glucose Calcium Troponin I < 0.012 Triglycerides Cholesterol LDL Cholesterol Direct HDL Direct Discharge Plan Discharge Attending physician on discharge: Jeremy Hills Consulting providers: Clemente Leigh Discharging Clinician: Doreen Youssef Anticipated Discharge Date/Time: 02/16/24 14:19 Patient Disposition: Home, Self-Care Activity: as tolerated Diet: heart healthy Patient Instructions: Antibiotic Form Stand Alone Forms: General Discharge Information Follow-up/Referrals: Astrid Padilla APRN [Primary Care Provider] - 2 Weeks Discharge Medications: Continued duloxetine 60 mg capsule,delayed release(DR/EC) 60 mg PO .every other day duloxetine 30 mg capsule,delayed release(DR/EC) 30 mg PO .every other day [employer] Sinuplex 1 - 3 tablet PO Q8H PRN (Reason: Sinus Symptoms) Rx Instructions: 1-3 tablets PRN olanzapine 10 mg tablet 10 mg PO QHS scopolamine base 1 mg over 3 days patch 3 day 1 patch transdermal Q3D PRN (Reason: nausea and vomiting) Qty: 10 0RF ondansetron 4 mg tablet,disintegrating See Rx Instructions .ROUTE .COMPLEX Qty: 30 0RF Dose Instruction: DISSOLVE 1 TABLET BY MOUTH UP TO EVERY 8 HOURS NEEDED FOR NAUSEA OR FOR VOMITING Rx Instructions: DISSOLVE 1 TABLET BY MOUTH UP TO EVERY 8 HOURS NEEDED FOR NAUSEA OR FOR VOMITING trazodone 50 mg tablet 50 mg PO QHS PRN (Reason: Sleep) tamsulosin 0.4 mg capsule See Rx Instructions .ROUTE .COMPLEX Qty: 200 2RF Dose Instruction: TAKE 1 CAPSULE BY MOUTH TWICE DAILY Rx Instructions: TAKE 1 CAPSULE BY MOUTH TWICE DAILY levothyroxine 50 mcg tablet See Rx Instructions .ROUTE .COMPLEX Qty: 100 2RF Dose Instruction: TAKE 1 TABLET BY MOUTH DAILY Rx Instructions: TAKE 1 TABLET BY MOUTH DAILY pantoprazole 40 mg tablet,delayed release (DR/EC) 40 mg PO BID Qty: 200 2RF cholecalciferol (vitamin D3) 1,250 mcg (50,000 unit) capsule 1,250 mcg PO WEEKLY Qty: 13 2RF Rx Instructions: Pt states she takes medication on wednesdays Date of admission: 02/15/24 15:21 Primary Care Provider: Astrid Padilla Admitting Provider: Jeremy Hills Attending physician on admission: Jeremy Hills Condition: Stable Quality If No VTE Prophylaxis Answer both mechanical and pharmacologic: Reason no mechanical VTE proph: low risk/not indicated Reason no pharmacologic proph: low risk/not indicated Hospitalist MIPS Heart Failure (Exclusion) Patient has history of Heart Transplant or Left Ventricular Assistive Device?: No IF YES, STOP HERE Heart Failure (Qualifier) Patient has current or prior documentation of LVEF less than or equal to 40%, or mod/servere depressed LVSF?: No IF NO, STOP HERE
== END 2024-02-16 14:55 | disposition home or self-care (01) ==
LOC: ANHED 15:28 → ANH2MED 16:03
PROVIDERS: Emergency Medicine; Student in an Organized Health Care Education/Training Program; Admitting Provider Internal Medicine; Emergency Provider Emergency Medicine; PCP Nurse Practitioner Family; Visit Provider Internal Medicine
DX: R07.89 Other chest pain (principal); K21.9 Gastro-esophageal reflux disease without esophagitis; I10 Essential (primary) hypertension; G47.33 Obstructive sleep apnea (adult) (pediatric); J44.9 Chronic obstructive pulmonary disease, unspecified; E03.9 Hypothyroidism, unspecified; M48.10 Ankylosing hyperostosis [Forestier], site unspecified; F25.9 Schizoaffective disorder, unspecified; F32.A Depression, unspecified; F41.9 Anxiety disorder, unspecified; K58.9 Irritable bowel syndrome, unspecified; Z79.899 Other long term (current) drug therapy; Z98.890 Other specified postprocedural states; Z87.891 Personal history of nicotine dependence
CPT/HCPCS: 36415; 71046; 80048; 80053; 80061; 83690; 84484; 85025; 85610; 85730; 93005; 99285; A9270; G0378

== ENCOUNTER 2024-02-24 09:26 | Outpatient (CLI) | payer MEDICARE, SELFPAY | END 2024-02-24 09:27 | disposition home or self-care (01) | LOC: ANHCARD 09:27 | PROVIDERS: PCP Nurse Practitioner Family; Visit Provider Family Medicine | DX: R42 Dizziness and giddiness (principal) | CPT/HCPCS: 93242 ==

== ENCOUNTER 2024-04-19 13:34 | Outpatient (CLI) | payer MEDICARE, SELFPAY ==
--- NOTE | ~2024-04-19 | US_ITS ---
EXAMINATION: US carotid duplex BI DATE: 04/19/2024 14:37 INDICATION: Cerebral infarction TECHNIQUE: Grayscale, color Doppler, and pulsed Doppler images of the cervical carotid arteries were obtained. The degree of vessel stenosis is placed in one of the following categories: normal, <50%, 5 0-69%, >=70% but less than near-occlusion, near-occlusion, or total occlusion. Note that percent sten osis relative to normal distal artery lumen diameter is indirectly measured from velocity measurement s as described by Carlos, et al. Radiology 2003; 229:340-346. Notes: Normal: Peak systolic velocity <125 centimeters/sec and no plaque <50%. Peak systolic velocity <125 ( EDV <40; ICA/CCA PSV ratio <2.0; used these factors only a tandem lesions or low cardiac output or co ntralateral disease) 50-69 %: PSV 125-230 (EDV 40-100; ratio 2-4) >= 70% but less than near occlusion: PSV greater than 230 (EDV > 100; ratio> 4.0) Near Occlusion: PSV that is variable; markedly narrowed lumen Occlusion: Absent flow on color/spectral Doppler and no lumen on andrade scale. COMPARISON: None. FINDINGS: RIGHT: The right common carotid artery (CCA) peak systolic velocity (PSV) is 69 cm/s. The right internal car otid artery (ICA) PSV is 53 cm/s. The right ICA end-diastolic velocity (EDV) is 20 cm/s. The right IC A/CCA PSV ratio is 0.8. The external carotid artery (ECA) PSV is 116 cm/s. There is antegrade flow in the right vertebral artery. LEFT: The left CCA PSV is 86 cm/s. The left ICA PSV is 55 cm/s. The left ICA EDV is 19 cm/s. The left ICA/C CA PSV ratio is 0.6. The ECA PSV is 129 cm/s. There is antegrade flow in the left vertebral artery. IMPRESSION: 1. Less than 50% stenosis in the right internal carotid artery by sonographic criteria. 2. Less than 50% stenosis in the left internal carotid artery by sonographic criteria. Reviewed, dictated and finalized at location A. ICAL DAMAGE APPRAISER IMPRESSION: 1. Less than 50% stenosis in the right internal carotid artery by sonographic lj cordoba. 2. Less than 50% stenosis in the left internal carotid artery by sonographic zaheer davis.
--- OUTSIDE RECORDS SUMMARY | 2024-04-19 14:14 | XMS_ITS | Encounter Summary ---
Author Organization [employer] Address 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
--- OUTSIDE RECORDS SUMMARY | 2024-04-19 14:14 | XMS_ITS | Clinical Summary ---
Author Organization [facility] Address [address] [place] [address]. [place], [place] [id number] [place] [id number] Care Team Providers Care Test Engineering Manager Name Role Phone Unavailable Primary Care Provider Unavailabl e Social History Tobacco Use Types Packs/Day Years Used Date Smoking Tobacco: Never Assessed Comments Unknown Sex and Gender Information Value Date Recorded Sex Assigned at Not on file Legal Sex Female 7:20 PM CDT Gender Identity Not on file Sexual Orientation Not on file Plan of Treatment Health Maintenance Due Date Last Done Comments DTaP, Tdap and Td Vaccines ( 1 - Tdap) 1962 Zoster Vaccines (1 of 2) 1993 Dexa Scan (General) 2008 Pneumococcal Vaccine: 65+ Ye ars (1 of 1 - PCV) 2008 RSV Immunization or 60+ Years (1 - 1-dose 75+ series) 2018 COVID-19 Vaccine ( - 2023-2 5 season) 2023 Influenza Adult (#1) 2023 Meningococcal B Vaccine Aged Out No l onger eligible based on patient's age to complete this topic Meningococcal Vaccine Aged Out No mic javier eligible based on patient's age to complete this topic RSV Immunizations Under 20 Months Aged Out No longer eligible based on patient's age to complete this topic Advance Directives Documents on File Type Date Recorded 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 Expl anation Advance Directives and Living Will 09/04/2016 12:00 AM ADVANCED DIRECTIVES Advance Directives and Living Will 09/04/2016 12:00 AM HCPOA Advance Directives and Living Will 09/04/2016 12:00 AM HCPOA Advance Directives and Living Will 09/04/2016 12:00 AM HCPOA Advance Directives and Living Will 08/04/2016 12:00 AM HCPOA Advance Directives and Living Will 08/04/2016 12:00 AM HCPOA Advance Directives and Living Will 05/28/2016 12:00 AM ADVANCED DIRECTIVES Advance Directives and Living Will 05/28/2016 12:00 AM HCPOA Advance Directives and Living Will 05/28/2016 12:00 AM HCPOA Advance Directives and Living Will 04/08/2016 12:00 AM ADVANCED DIRECTIVES Advance Directives and Living Will 04/08/2016 12:00 AM HCPOA
--- OUTSIDE RECORDS SUMMARY | 2024-04-19 14:14 | XMS_ITS | Encounter Summary ---
Author Organization [employer] Address 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
--- OUTSIDE RECORDS SUMMARY | 2024-04-19 14:14 | XMS_ITS | Clinical Summary ---
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
--- OUTSIDE RECORDS SUMMARY | 2024-04-19 14:16 | XMS_ITS ---
Author Organization [facility] [employer] Address [facility]5 [facility] 162 [facility] [address] [place] [address] Care Team Providers Care Staff Appraiser Name Role Phone Gerard Corral [phone] REASON FOR VISIT DULoxetine Medications Medication SIG (Take, Route, Frequency, Duration) Notes Start Date End Date Status DULoxetine HCl 30 MG 1 capsule Oral Once a day for 90 days pt previously took 60 mg every other day, and 30 mg every other day; she is now taking 30 mg daily Active Social History Sex Assigned At : Social History Observation Description Sex Assigned At Female Encounters Encounter Location Date Provider Diagnosis [facility] [employer] [place] [id number] [facility] [address] [address] 03/30/2024 Gerard Corral Schizoaffective disorder, bipolar type F25.0 Assessments Encounter Date Diagnosis (ICD Code) Assessment Notes Treatment Notes Treatment Clinical Notes Section Notes 03/30/2024 Schizoaffective disorder, bipolar type (ICD-10 - F25.0) Plan Of Treatment Medication Medication Name Sig Start Date Stop Date Notes DULoxetine HCl 30 MG 1 capsule Oral Once a day for 90 days pt previously took 6 0 mg every other day, and 30 mg every other day; she is now taking 30 mg daily Next Appt Details Provider Name:Gerard Corral , 04/26/2024 09:00:00 AM, [address], [facility] [address], [place], [address], Progress Notes * SUKUMAR MOSS ADOB:1944 (79 yo F)Acc No.[id number]:03/30/2024 Patient:?SUKUMAR MOSS :1945???Age:79 Y???Sex:Female Address:[address] [place] [address], [address] * Refills? Refill DULoxetine HCl Capsule Delayed Release Particles, 30 MG, Oral, 90 Capsule, 1 capsule, Once a day, 90 days, Refills=0 Subjective: * Chief Complaints: * ???DULoxetine * Medical History:? * Surgical History:? * Hospitalization/Major Diagno stic Procedure:? * Medications:? Objective: * Vitals:? * Physical Examination:? Assessment: * Assessment: 1.?Schizoaffective disorder, bipolar type - F25.0??? Plan: * Treatment: * Procedure Codes:? * true * Date:? Generated for Og lopez/Ac/Eran on:?04/19/2024 02:16 PM PROGRAM MGR
--- OUTSIDE RECORDS SUMMARY | 2024-04-19 14:16 | XMS_ITS | Patient Health Record ---
Author Organization [facility] As [employer] [facility] Address [address] [place] [address] Care Team Providers Care Care Information Associate Name Role Phone Gerard Corral Unavailable [phone] Migration, Provider Unavailable Unavailable Allergies Allergen (clinical drug ingredient) Drug/Non Drug Allergy documented on EMR Reaction Allergy Type Onset Date Status clonazepam clonazePAM Unknown Drug Allergy 06/23/2023 Acti ve predniSONE Unknown Drug Allergy 06/23/2023 Activ e diphenhydramine Diphenhydramine Unknown Drug Allergy 06/22 Active Reason For Referral No Information Medications Medication SIG (Take, Route, Frequency, Duration) Notes Start Date End Date Status OLANZapine 10 MG 1 tablet every night Oral Once a day for 90 days Active Anoro Ellipta 62.5-25 MCG/INH Inhalation 06/23/2023 Unknown traZODone HCl 100 MG 1 tablet every night Oral Once a day for 90 days Active DULoxetine HCl 60 MG 1 capsule Oral every other day takes 30 mg capsule every other day, and 60 mg capsule on the alternate days Active DULoxetine HCl 30 MG 1 capsule Oral Once a day for 90 days pt previously took 60 mg every other day, and 30 mg every other day; she is now taking 30 mg daily Active Levothyroxine Sodium 50 MCG Oral 06/23/2023 Active Pantoprazole Sodium 40 MG Oral 06/23/2023 Active Ergocalciferol 1.25 MG (61519 UT) Oral 06/23/2023 Active Tamsulosin HCl 0.4 MG Oral 06/23/2023 Active Immunizations Vaccine Route Administration Date Status Comme nts Pneumococcal conjugate PCV 13 Unknown 04/09/2016 Admini stered Pfizer [employer] Interactive Covid-19 Vac cine 2nd dose Unknown 02/05/2021 Administered Jaiden Covid-19 Vaccine Unknown 05/26/2020 Administere d Influenza, seasonal, injecta ble, preservative free, 3 yrs and above Unknown 12/20/2015 Administered Influenza, high dose seasonal Unknown 12/26/2014 Admini malina Social History Tobacco Use: Social History Observation Description Date Details (start date - stop date) Former Smoker NA - 05/17/1997 Sex Assigned At : Social History Observation Description Sex Assigned At Female Tobacco Control (Standard) Question Answer Notes Tobacco use: Former smoker When did you stop smoking? 05/17/1997 Problems Problem Type SNOMED Code ICD Code Onset Dates Problem Status W/U Status Risk Notes Problem 35583080 Schizoaffective disorder, bipolar type (F25.0) Active confirmed Vital Signs Heart Rate 85 /min 02/23/2024 Blood pressure diastolic 82 mm Hg 02/23/2024 Height-cm 162.61 cm 02/23/2024 Weight-kg 93.89 kg 02/23/2024 Height 64.02 in 02/23/2024 Blood pressure systolic 128 mm Hg 02/23/2024 Weight 207 lbs 02/23/2024 BMI 35.51 kg/m2 02/23/2024 Encounters Encounter Location Date Provider Diagnosis [facility] [place] [place] [address] [address] [facility] [address] [address] 02/23/2024 Thena Shayna Schizoaffective disorder, bipolar type F25.0 and Generalized anxiety disorder F41.1 [facility] [employer] [place] [id number] [facility] [address] [address] 06/15/2023 Provider Migration Body mass index (BMI) 33.0-33.9, adult Z68.33 [facility] [employer] [place] [address] [facility] [address] [facility] [address] [place] [address] 06/23/2023 Thena Shayna Primary insomnia F51 .01 ; Body mass index (BMI) 33.0-33.9, adult Z68.33 and Schizoaffective disorder, bipolar type F25.0 [facility] [address] [facility] [address] [address] 08/25/2023 Thena Shayna Schizoaffective disorder, bipolar type F25.0 and Generalized anxiety disorder F41.1 [facility] [address] [place] [address] 09/26/2023 Thena Shayna Schizoaffective disorder, bipolar type F25.0 ; Generalized anxiety disorder F41.1 and Metabolic syndrome E88.81 [facility] [address] [place] [address] 11/10/2023 Thena Shayna Schizoaffective disorder, bipolar type F25.0 [facility] [address] [place] [address] 04/27/2023 Provider Migration [facility], [facility] [address] [place] [address] 04/28/2023 Provider Migration [facility], [facility] [address] [place] [address] 08/06/2023 Provider Migration [facility], [facility] [address] [place] [address] 08/07/2023 Provider Migration [facility], [facility] [address] [place] [address] 12/02/2023 Thena Shayna Schizoaffective disorder, bipolar type F25.0 [facility] [address] [place] [address] 12/20/2023 Thena Shayna [facility] [address] [place] [address] 12/20/2023 Thena Shayna Schizoaffective disorder, bipolar type F25.0 [facility] [address] [place] [address] 03/30/2024 Thena Shayna Schizoaffective disorder, bipolar type F25.0 Assessments Encounter Date Diagnosis (ICD Code) Assessment Notes Treatment Notes Treatment Clinical Notes Section Notes 06/15/2023 Body mass index (BMI) 33.0-33.9, adult (ICD-10 - Z68.33) 06/23/2023 Schizoaffective disorder, bipolar type (ICD-10 - F25.0) 06/23/2023 Primary insomnia (ICD-10 - F51.01) 06/23/2023 Body mass index (BMI) 33.0-33.9, adult (ICD-10 - Z68.33) 08/25/2023 Schizoaffective disorder, bipolar type (ICD-10 - F25.0) 08/25/2023 Generalized anxiety disorder (ICD-10 - F41.1) 09/26/2023 Schizoaffective disorder, bipolar type (ICD-10 - F25.0) 09/26/2023 Generalized anxiety disorder (ICD-10 - F41.1) 11/10/2023 Schizoaffective disorder, bipolar type (ICD-10 - F25.0) 12/02/2023 Schizoaffective disorder, bipolar type (ICD-10 - F25.0) 12/20/2023 Schizoaffective disorder, bipolar type (ICD-10 - F25.0) 02/23/2024 Schizoaffective disorder, bipolar type (ICD-10 - F25.0) 02/23/2024 Generalized anxiety disorder (ICD-10 - F41.1) 03/30/2024 Schizoaffective disorder, bipolar type (ICD-10 - F25.0) 09/26/2023 Metabolic syndrome (ICD-10 - E88.81) 02/23/2024 Other referral to the local chapter or national office of the Alzheimer's Association ( ; http://www.alz. org), the Alzheimer's Disease Education and Referral Center (ADEAR) ( ; http://www.al. nih.gov/Alzheim ers/), Plan Of Treatment Next Appt Details Provider Name:Henriettadidier Corral , 04/26/2024 09:00:00 AM, [facility] [facility], [facility] [place], [address], Insurance Providers Payer Name Payer Address Payer Phone Subscriber Number Group Number Insured Name Patient Relationship to Insured Coverage Start Date Coverage End Date [employer] Medicare Replacement/ Advantage - Ppo [address] [address] [place] [phone] [id number] SUKUMAR LINDSEY Self - patient is the insured Medical (General) History Medical History History ICD Code Problems: Bereavement Body mass index 30+ - obesity Chronic obstructive lung disease Generalized anxiety disorder Metabolic syndrome X Minimal cognitive impairment Persistent insomnia Primary insomnia Schizoaffective disorder, bipolar type , Hospitalization History Reason Date(Month/Year) chest pains 02/15/2024
--- OUTSIDE RECORDS SUMMARY | 2024-04-19 14:16 | XMS_ITS | Clinical Summary ---
Author Organization [facility] Address [address] [place] [address] Care Team Providers Care Door Liner Helper Name Role Phone Wing Carrasco MD Primary Care Prov ider Allergies Active Allergy Reactions Criticality Noted Date Comments Clonazepam Diphenhydramine Hydroxyzine Prednisone Medications losartan (COZAAR) 50 mg tablet take 1 tablet by oral route every day 0 0 03/09/2016 Active ergocalciferol (VITAMIN D2) 50,000 unit capsule take 1 capsule by oral route every week 0 0 03/09/2016 Active levothyroxine sodium (TIROSINT) 50 mcg capsule take 1 capsule by oral route every day 0 0 03/09/2016 Active carBAMazepine, mood stabiliz, (EQUETRO) 300 mg capsule, ER multiphase 12 hr take 1 capsule by oral route every 12 hours 0 0 03/09/[address] (CYMBALTA) 60 mg capsule take 1 capsule by oral route every day 0 0 03/09/2016 Active omega-3 fatty acids-fish oil (FISH OIL) 300-1,000 mg capsule take 1 capsule by oral route every day 0 0 03/09/2016 Active topiramate (TROKENDI XR) 100 mg capsule,extende d release 24hr take 1 capsule by oral route every day 0 0 03/09/2016 Active Encounters Date Type Department Care Team Description 02/20/2024 Orders Only [facility] Cardiology [address] [place] [address] Clemente Leigh MD from Last 3 Months Immunizations Name Administration Dates Next Due Influenza, Trivalent, IM (LIONEL) 12/20/2015 Family History Medical History Relation Name Comments Other Brother 2 Alive and well; Pneumonia Father 2 pneumonia; Caus e of : pneumonia Cancer Mother 2 Cancer, unknown ; Cause of : Cancer, unknown Relation Name Status Comments Brother 1 Alive Brother 2 Father 1 (Age 86) Father 2 Mother 1 (Age 78) Mother 2 Social History Tobacco Use Types Packs/Day Years Used Date Smoking Tobacco: Never Alcohol Use Standard Drinks/Week Comments No 0 (1 standard drink = 0.6 oz pur e alcohol) Personal Safety Answer Date Recorded Getting School Help Needed Not on file 04/09 Comments Unknown Sex and Gender Information Value Date Recorded Sex Assigned at Not on file Legal Sex Female 12:19 AM RESTAURANT BARTENDER Gender Identity Not on file Sexual Orientation Not on file Obstetrics History Last Filed Vital Signs Vital Sign Reading Time Taken Comments Blood Pressure 121/68 07/23/2016 8:08 AM CDT Pulse 52 07/23/2016 8:08 AM CDT Temperature - - Respiratory Rate - - Oxygen Saturation 98% 07/23/2016 8:06 AM CDT Inhaled Oxygen Concentration - - Weight 65.3 kg (144 lb) 02/08/2018 10:16 AM RESTAURANT BARTENDER Height 157.5 cm (5' 2 ) 02/08/2018 10:16 AM RESTAURANT BARTENDER Body Mass Index 26.34 02/08/2018 10:16 AM RESTAURANT BARTENDER Plan of Treatment Not on file Procedures Procedure Name Priority Date/Time Associated Diagnosis Comments CARDIOLOGY DOCUMENT SCAN Routine 02/16/2024 3:13 PM RESTAURANT BARTENDER from Last 3 Months Results * Cardiology Document Scan (02/16/2024 3:13 PM RESTAURANT BARTENDER) Anatomical Region Laterality Modality Other Clemente Leigh MD CV CARDIAC SERVICES PROC EDURES Final Result from Last 3 Months Insurance MEDICARE SOLUTIONS MEDICARE SOLUTIONS Care Teams Door Liner Helper Relationship Specialty Start Date End Date Wing Carrasco MD [address] [place] [address] PCP - General 12/12/15
--- OUTSIDE RECORDS SUMMARY | 2024-04-19 14:16 | XMS_ITS | Continuity of Care Document ---
Author Organization [facility] Address [address] [facility] [address] [place] [address] Phone Care Team Providers Care Military Police Officer Name Role Phone Alexandru Larson MD Unavailable Unavailable Advance Directives Directive Yes / No Effective Date File Name No Information Encounters Encounter Description Practice Location Reason(s) For Visit Diagnoses Date Provider Providers Copied on Encounter [facility], [address], [place], [place], [id number], tel:[phone] [address] [place] Professional No Information Jun-0 7-200 5 Marsha Horvath. [address], [place], [id number], [place]. tel:[phone] Referring Provider: Alexandru Corbett [address] [place], [address] . tel:[phone] Family History Family Member Type Diagnosis Age At Onset No Information Payers Payer name Insurance type Covered libertarian ID Authoriza tion(s) No Information Social History Type Description Quantity Date Captured Comments Sex Female Smoking Status No Information Chief Complaint And Reason For Visit No Information Reason For Referral Reason For Referral No Information History Of Present Illness Encounter Date Complaint History Of Prese nt Illness No Information Functional Status Date Functional Assessmen t No Information Instructions Date Instruction Additional Infor mation No Information Assessments Type Assessment Date No Information Patient Care Teams Name Effective Dates (start - stop) Status Members No Information
--- OUTSIDE RECORDS SUMMARY | 2024-04-19 14:16 | XMS_ITS | Referral Summary ---
Author Organization [facility] Address [address] [place] [address] Care Team Providers Care Checker Name Role Phone Wing Carrasco MD Primary Care Prov ider Encounters Date Type Department Care Team Description 02/20/2024 Orders Only [facility] Cardiology [address] [place] [address] Clemente Leigh MD from Last 3 Months Allergies Active Allergy Reactions Criticality Noted Date [...] route every day 0 0 03/09/2016 Active Immunizations Name Administration Dates Next Due Influenza, Trivalent, IM (MDV) 12/20/2015 Social History Tobacco Use Types Packs/Day Years Used Date Smoking Tobacco: Never Alcohol Use Standard Drinks/Week Comments No 0 (1 standard drink = 0.6 oz pur e alcohol) Personal Safety Answer Date Recorded Getting School Help Needed Not on file 04/09 Comments Unknown Sex and Gender Information Value Date Recorded Sex Assigned at Not on file Legal Sex Female 12:19 AM DIE SINKER APPRENTICE Gender Identity Not on file Sexual Orientation Not on file Last Filed Vital Signs Vital Sign Reading Time Taken Comments Blood Pressure 121/68 07/23/2016 8:08 AM CDT Pulse 52 07/23/2016 8:08 AM CDT Temperature - - Respiratory Rate - - Oxygen Saturation 98% 07/23/2016 8:06 AM CDT Inhaled Oxygen Concentration - - Weight 65.3 kg (144 lb) 02/08/2018 10:16 AM DIE SINKER APPRENTICE Height 157.5 cm (5' 2 ) 02/08/2018 10:16 AM DIE SINKER APPRENTICE Body Mass Index 26.34 02/08/2018 10:16 AM DIE SINKER APPRENTICE Plan of Treatment Not on file Procedures Procedure Name Priority Date/Time Associated Diagnosis Comments CARDIOLOGY DOCUMENT SCAN Routine 02/16/2024 3:13 PM DIE SINKER APPRENTICE from Last 3 Months Results * Cardiology Document Scan (02/16/2024 3:13 PM DIE SINKER APPRENTICE) Anatomical Region Laterality Modality Other Clemente Leigh MD CV CARDIAC SERVICES PROC EDURES Final Result from Last 3 Months Insurance MEDICARE SOLUTIONS MEDICARE SOLUTIONS Care Teams Checker Relationship Specialty Start Date End Date Wing Carrasco MD [address] [place] [address] PCP - General 12/12/15
--- OUTSIDE RECORDS SUMMARY | 2024-04-19 14:16 | XMS_ITS ---
Author Organization [facility] [employer] Address [address] [place] [address] Care Team Providers Care Stores Clerk Name Role Phone Tsering Munoz Unavailable [phone] Allergies Allergen (clinical drug ingredient) Drug/Non Drug Allergy documented on EMR Reaction Allergy Type Onset Date Status clonazepam clonazePAM Unknown Drug Allergy 06/23/2023 Acti ve predniSONE Unknown Drug Allergy 06/23/2023 Activ e diphenhydramine Diphenhydramine Unknown Drug Allergy 06/22 Active REASON FOR VISIT follow up, Functional status reviewed, phq less than 5 Medications Medication SIG (Take, Route, Frequency, Duration) Notes Start Date End Date Status OLANZapine 10 MG 1 tablet every night Oral Once a day for 90 days Active DULoxetine HCl 30 MG TAKE 1 CAPSULE BY MOUTH EVERY OTHER DAY Oral Once a day for 90 days pt takes 60 mg every other day, and 30 mg every other day Active Levothyroxine Sodium 50 MCG Oral 06/23/2023 Active Ergocalciferol 1.25 MG (28144 UT) Oral 06/23/2023 Active Tamsulosin HCl 0.4 MG Oral 06/23/2023 Active Anoro Ellipta 62.5-25 MCG/INH Inhalation 06/23/2023 Unknown traZODone HCl 100 MG 1 tablet every night Oral Once a day for 90 days Active DULoxetine HCl 60 MG 1 capsule Oral every other day takes 30 mg capsule every other day, and 60 mg capsule on the alternate days Active Pantoprazole Sodium 40 MG Oral 06/23/2023 Active Social History Tobacco Use: Social History Observation Description Date Details (start date - stop date) Former Smoker NA - 05/17/1997 Sex Assigned At : Social History Observation Description Sex Assigned At Female Tobacco Control (Standard) Question Answer Notes Tobacco use: Former smoker When did you stop smoking? 05/17/1997 Vital Signs Blood pressure systolic 128 mm Hg 02/23/20 24 Blood pressure diastolic 82 mm Hg 024 Heart Rate 85 /min 02/23/2024 Height 64.02 in 02/23/2024 Weight 207 lbs 02/23/2024 BMI 35.51 kg/m2 02/23/2024 Height-cm 162.61 cm 02/23/2024 Weight-kg 93.89 kg 02/23/2024 Encounters Encounter Location Date Provider Diagnosis [facility] [employer] [address] [facility] [address] [place] [address] 02/23/2024 Thendidier Shayna Schizoaffective disorder, bipolar type F25.0 and Generalized anxiety disorder F41.1 Assessments Encounter Date Diagnosis (ICD Code) Assessment Notes Treatment Notes Treatment Clinical Notes Section Notes 02/23/2024 Schizoaffective disorder, bipolar type (ICD-10 - F25.0) 02/23/2024 Generalized anxiety disorder (ICD-10 - F41.1) 02/23/2024 Other referral to the local chapter or national office of the Alzheimer's Association ( ; http://www.alz. org), the Alzheimer's Disease Education and Referral Center (ADEPR) ( ; http://www.al. nih.gov/Alzheim ers/), Plan Of Treatment Medication Medication Name Sig Start Date Stop Date Notes OLANZapine 10 MG 1 tablet every night Oral Once a day for 90 days DULoxetine HCl 30 MG TAKE 1 CAPSULE BY MOUTH EVERY OTHER DAY Oral Once a day for 90 days pt takes 60 mg every other day, and 30 mg every other day traZODone HCl 100 MG 1 tablet every nigh t Oral Once a day for 90 days DULoxetine HCl 60 MG 1 capsule Oral ever y other day takes 30 mg capsule every other day, and 60 mg capsule on the alternate days Treatment Notes Assessment Notes Other referral to the local chapter or national office of the Alzheimer's Association ( ; http://www.alz.org), the Alzheimer's Disease Education and Referral Center (ADEAR) ( ; http://www.al.nih.gov/Alzheimers/), Next Appt Details Provider Name:Tsering Noble Shayna , 04/26/2024 09:00:00 AM, [address], [facility] [address], [place], [address], Progress Notes * SUKUMAR MOSS ADOB:1944 (79 yo F)Acc No.[id number]:02/23/2024 Patient:?MOSSMARELYAN Didier Provider:?TSERING MUNOZ MD :1945???Age:78 Y???Sex:Female D ate:02/23/2024 Address:[address] [place] [address], [facility] Subjective: * Chief Complaints: * ???1. Follow up. 2. Function al status reviewed. 3. Phq less than 5. * HPI: ???Depression Screening:?TAMIKO-7 (2018 Edition)?Feeling nervous, anxious, or on edge?Several days,?Not being able to stop or control worrying?Not at all,?Worrying too much about different things?Not at all,?Trouble relaxing?Not at all,?Being so restless that it is hard to sit still?Not at all,?Becoming easily annoyed or irritable?Not at all,?Feeling afraid as if something awful might happen?Not at all,?Total TAMIKO-7 Score?1,?If you checked any problems, how difficult have they made it for you to do your work, take care of things at home, or get along with other people??Not difficult at all,?Interpretation of Total?(0 to 4) No Anxiety.?Depression screening:?PHQ-9?Little interest or pleasure in doing things?Not at all,?Feeling down, depressed, or hopeless?Not at all,?Trouble falling or staying asleep, or sleeping too much?Not at all,?Feeling tired or having little energy?Several days,?Poor appetite or overeating?Not at all,?Feeling bad about yourself or that you are a failure, or have let yourself or your family down?Not at all,?Trouble concentrating on things, such as reading the newspaper or watching television?Several days,?Moving or speaking so slowly that other people could have noticed; or the opposite, being so fidgety or restless that you have been moving around a lot more than usual?Not at all,?Thoughts that you would be better off or of hurting yourself in some way?Not at all,?Total Score?2, Interpretation?Minimal Depression.?Intervention?Depression Screening Findings?Negative.?Transition of Care:? 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 will be following up with neurology and cardiology,. * Medical History:?Problems: B ereavement, Body mass index 30+ - obesity, Chronic obstructive lung disease, Generalized anxiety disorder, Metabolic syndrome X, Minimal cognitive impairment, Persistent insomnia, Primary insomnia, Schizoaffective disorder, bipolar type, ,. * Surgical History:?Denies Pas t Surgical History. * Hospitalization/Major Diagno stic Procedure:?chest pains 02/15/2024. * Social History:?Tobacco Use:?Tobacco Control (Standard)?Tobacco use:?Former smoker,?When did you stop smoking??05/17/1997.?Migrated Social History:?Migrated Social History: Alcohol Intake: None 2018,Tobacco Years: Former smoker 02/11/2023. * Medications:?Taking Ergocalc iferol 1.25 MG (98196 UT) Capsule Oral , Taking Tamsulosin HCl 0.4 MG Capsule Oral , Taking Levothyroxine Sodium 50 MCG Tablet Oral , Taking Pantoprazole Sodium 40 MG Tablet Delayed Release Oral , Taking traZODone HCl 100 MG Tablet 1 tablet every night Oral Once a day , Taking OLANZapine 10 MG Tablet 1 tablet every night Oral Once a day , Taking DULoxetine HCl 30 MG Capsule Delayed Release Particles TAKE 1 CAPSULE BY MOUTH EVERY OTHER DAY , Unknown Anoro Ellipta 62.5-25 MCG/INH Aerosol Powder Breath Activated Inhalation , Medication List reviewed and reconciled with the patient * Allergies:?clonazePAM: Aller gy - Onset Date 06/23/2023, predniSONE: Allergy - Onset Date 06/23/2023, Diphenhydramine: Allergy - Onset Date 06/23/2023. Objective: * Vitals:?BP:128/82mm Hg, HR:8 5/min, Wt:207lbs, Wt-k.89 kg, Ht: 64.02 in, Ht- cm: 162.61 cm, BMI:35.51Index, Body Surface Area: 2.06. * Examination: ???Functional Assessment: ?Venegas Index of ADL?.?Physical Functioning?.?1 point for independence, 0 for help. ???Neurology: ?Cognition Assessment Tools Used?.? SLUMS MMSE. ???Mini Mental Status Exam: ?Orientation:?What is the (year), (season), (date), (day), (month)? 02/23/2024, fall,--07/23 ?Where are we (state), (county), (town), (hospital), (floor)?? 07/23.?Registration:?Name 3 objects: everton antonio josé antonio 05/21.?Attention:?katiuska ALEMAN-JEANINE? 07/23.?Recall:?paco, everton, josé antonio 05/21, score: 3 out of 3.?Language:?score: 9 out of 9.?Total score (Cognitive impairment <=20):?.?Psychiatry: ?Dementia?.?Appearance:?well-groomed, well-nourished, appears older, obese.?Affect / mood:?appropriate, full range.?Attention:?good.?Attitude:?cooperative.?Suicidal ideation:?none.?Memory status:?no impairment noted.?Degree of awareness of surroundings:?within normal limits.?Delusions:?no.?Hallucinations:?no.?Insight:?good.?Intellectual functioning:?no impairment noted.?Judgement:?good.?Orientation:?awake, alert and oriented x 3.?Perceptual disorders:?no perceptual disorder noted.?Psychomotor activity:?within normal range.?Speech / language:?appropriate pitch/modulation, clear and coherent, normal rate, volume, and articulation (RVR), proper grammar used.?Thought content:?appropriate.?Thought process:?intact.? Assessment: * Assessment: 1.?Schizoaffective disorder, bipolar type - F25.0 (Primary)???2.?Generalized anxiety disorder - F41.1??? Plan: * Treatment: 2.?Others? Notes: referral to the [facility] ornational office of the Alzheimer's Association ( ;http://www.alz.org), the Alzheimer'sDquorum health Education and Referral Center ([facility]) ( ;http://www.al.nih.gov/Alzh daniela/), ?? * Procedure Codes:?46462 BEHAV ASSMT W/SCORE & DOCD/STAND INSTRUMENT * Billing Information: * Visit Code:? * Procedure Codes:? 65649 BEHAV ASSMT W/SCORE & DOCD/STAND INSTRUMENT. * Electronic signature of Henrietta Munoz MD on 04/19/2024 at 02:16 PM LEAD ADVISOR Sign off status: Pending * Provider:?TSERING MUNOZ MD Date:? 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 and dependent fluid in maxillary sinus; will be getting additional testing--including Holter monitor for 5 days, starting tomorrow, will be following up with neurology and cardiology, Depression screening PHQ-9 Little interest or pleasure in doing things: Not at all Feeling down, depressed, or hopeless: No t at all Trouble falling or staying asleep, or sl eeping too much: Not at all Feeling tired or having little energy: S everal days Poor appetite or overeating: Not at all Feeling bad about yourself o r that you are a failure, or have let yourself or your family down: Not at all Trouble concentrating on thi ngs, such as reading the newspaper or watching television: Several days Moving or speaking so slowly that other people could have noticed; or the opposite, being so fidgety or restless that you have been moving around a lot more than usual: Not at all Thoughts that you would be b yuan off or of hurting yourself in some way: Not at all Total Score: 2 Interpretation: Minimal Depression Intervention Depression Screening Findings: N egative Depression Screening TAMIKO-7 (2018 Edition) Feelin g nervous, anxious, or on edge: Several days Not being able to stop or control worryi ng: Not at all Worrying too much about different things : Not at all Trouble relaxing: Not at all Being so restless that it is hard to sit still: Not at all Becoming easily annoyed or irritable: No t at all Feeling afraid as if something awful christine ht happen: Not at all Total TAMIKO-7 Score: 1 If you checked any problems, how difficult have they made it for you to do your work, take care of things at home, or get along with other people?: Not difficult at all Interpretation of Total: (0 to 4) No Anx iety Examination Category Sub-Category Detail Notes Category Not es Mini Mental Status Exam Orientation: What is the (year), (season), (date), (day), (month)? 02/23/2024, fall,--07/23 Where are we (state), (county), (town), (hospital), (floor)? 07/23 Registration: Name 3 objects: cloc k piano orange 05/21 Attention: katiuska ALDRIDGE 07/23 Recall: piano, clock, orange 05/21, score: 3 out of 3 Language: score: 9 out of 9 Total score (Cognitive impairment <=20): Neurology Cognition Assessment Tools Used Total score SLUMS: 23 SLUMS MMSE Total score MMSE: 30 Psychiatry Appearance: well-groomed, well-nourished , appears older, obese Attitude: cooperative Psychomotor activity: within normal rang e Attention: good Degree of awareness of surroundings: wit hin normal limits Orientation: awake, alert and rajinder ented x 3 Affect / mood: appropriate, full ra nge Speech / language: appropriate pitch/mo dulation, clear and coherent, normal rate, volume, and articulation (RVR), proper grammar used Insight: good Judgement: good Thought process: intact Thought content: appropriate Perceptual disorders: no perceptual diso rder noted Suicidal ideation: none Intellectual functioning: no impairment noted Memory status: no impairment noted Delusions: no Hallucinations: no Dementia Safety concern scree yefri for dangerousness to self and environment risks provided:: Yes ?What action was taken to mitigate the r isk?: Education provided ?Topics discussed for enviro nmental risks:: Home safety risks that could arise from cooking or smoking, Access to firearms or other weapons, Access to potentially dangerous chemicals and other materials ?Topics discussed for danger ousness to self:: Medication misuse, Financial mismanagement ?Safety concern mitigation recommendatio n provided:: Not required ?Screening Result:: Negative Caregiver education and support provided : Yes Functional Assessment Venegas Index of ADL Score:: 6 1 point for independence, 0 for help 1 point for independence, 0 for help Physical Functioning Personal hygiene: i ncluding combing hair, brushing teeth, shaving, applying makeup, washing/drying face and hands (exclude baths and showers): Independent (1) Bathing: how client takes fu ll-body bath/shower or sponge bath (exclude washing of back and hair). Includes how each part of body is bathed: arms, upper and lower legs, chest, abdomen, perineal area. (code for most dependent episode in last 7 days): Independent (1) Dressing upper body: how cli ent dresses and undresses (street clothes, underwear) above the waist, includes prostheses, orthotics, fasteners, pullovers, etc.: Independent (1) Dressing lower body: how cli ent dresses and undresses (street clothes, underwear), from the waist down, includes prostheses, orthotics, belts, pants, skirts, shoes, and fasteners: Independent (1) Eating - Including taking in food by any method, including tube feedings: Independent (1) Toilet use: including using the toilet room or commode, bedpan, urinal, transferring on/off toilet, cleaning self after toilet use or incontinent episode, changing pad, managing any special devices required (ostomy or catheter), and adjusting clothes.: Independent (1) Transfer: including moving t o and between surfaces--to/from bed, chair, wheelchair, standing position (excludes to/from bath/toilet): Independent (1) Transportation: No difficulty Continence:: Independent (1)
--- OUTSIDE RECORDS SUMMARY | 2024-04-19 14:16 | XMS_ITS ---
Author Organization [facility] [employer] Address [address] [facility] [address] [place] [address] Care Team Providers Care Cylinder Batcher Name Role Phone Gerard Corral [phone] Medications Medication SIG (Take, Route, Fr equency, Duration) Notes Start Date End Date Status DULoxetine HCl 60 MG 1 capsule Oral Once a day for 30 days Active Social History Sex Assigned At : Social History Observation Description Sex Assigned At Female Encounters Encounter Location Date Provider Diagnosis [facility] [address] [facility] [address] [place] [address] 12/20/2023 Gerard Corral Schizoaffective disorder, bipolar type F25.0 Assessments Encounter Date Diagnosis (ICD Code) Assessment Notes Treatment Notes Treatment Clinical Notes Section Notes 12/20/2023 Schizoaffective disorder, bipolar type (ICD-10 - F25.0) Plan Of Treatment Medication Medication Name Sig Start Date Stop Date Notes DULoxetine HCl 60 MG 1 capsule Oral Once a day for 30 days Next Appt Details Provider Name:Gerard Corral , 04/26/2024 09:00:00 AM, [address], [address], [place], [address], Progress Notes * SUKUMAR MOSS ADOB:1944 (78 yo F)Acc No.[id number]:12/20/2023 Patient:?SUKUMAR MOSS :1945???Age:78 Y???Sex:Female Address:[address] [place] [address], [place], [address] * Refills? Refill DULoxetine HCl Capsule Delayed Release Particles, 60 MG, Oral, 30, 1 capsule, Once a day, 30 days, Refills=0 Subjective: * Chief Complaints: * ??? * Medical History:? * Surgical History:? * Hospitalization/Major Diagno stic Procedure:? * Medications:? Objective: * Vitals:? * Physical Examination:? Assessment: * Assessment: 1.?Schizoaffective disorder, bipolar type - F25.0??? Plan: * Treatment: * Procedure Codes:? * true * Date:? Generated for Og lopez/Ac/Eran on:?04/19/2024 02:16 PM WORKFORCE MANAGEMENT MANAGER
== END 2024-04-19 13:35 | disposition home or self-care (01) ==
PROVIDERS: PCP Family Medicine; Visit Provider Psychiatry & Neurology Neurology
DX: I63.9 Cerebral infarction, unspecified (principal); I65.23 Occlusion and stenosis of bilateral carotid arteries
CPT/HCPCS: 93880

== ENCOUNTER 2024-04-20 08:26 | Outpatient (CLI) | payer MEDICARE, SELFPAY ==
--- OUTSIDE RECORDS SUMMARY | 2024-04-20 08:33 | XMS_ITS | Encounter Summary ---
Author Organization [employer] Address 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
--- OUTSIDE RECORDS SUMMARY | 2024-04-20 08:33 | XMS_ITS | Clinical Summary ---
Author Organization [email or web address] Address [address] [facility] Attn: Epic Prelude ADT [employer] [address] Care Team Providers Care Pony Edger Name Role Phone Unavailable Primary Care Provider Unavailabl e Social History Tobacco Use Types Packs/Day Years Used Date Smoking Tobacco: Never Assessed Comments Unknown Sex and Gender Information Value Date Recorded Sex Assigned at Not on file Legal Sex Female 3:18 AM BURNT LIME DRAWER Gender Identity Not on file Sexual Orientation [...]
--- OUTSIDE RECORDS SUMMARY | 2024-04-20 08:33 | XMS_ITS | Encounter Summary ---
Author Organization [employer] Address [address] [place] [address] Care Team Providers Care Producer Director Name Role Phone Unavailable Primary Care Provider Unavailabl e Encounter Details Date Type Department Care Team (Late st Contact Info) Description 06/10/2003 Outpatient Historical [facility] [address] [place] [address] Mark Anthony Acosta DO NO ADDRESS ON FILE Social History Tobacco Use Types Packs/Day Years Used Date Smoking Tobacco: Never Assessed Comments Unknown Sex and Gender Information Value Date Recorded Sex Assigned at Not on file Legal Sex Female 3:18 AM RECEPTIONIST AIRLINE LOUNGE Gender Identity Not on file Sexual Orientation Not on file documented as of this encounter Plan of Treatment Not on file documented as of this encounter Visit Diagnoses Not on filedocumented in this encounter
--- OUTSIDE RECORDS SUMMARY | 2024-04-20 08:33 | XMS_ITS | Clinical Summary ---
Author Organization [facility] Address [address] [place] [address]. 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
--- OUTSIDE RECORDS SUMMARY | 2024-04-20 08:34 | XMS_ITS | Referral Summary ---
Author Organization [facility] Address [address] [place] [address] Care Team Providers Care Performance Improvement Manager Name Role Phone Wing Carrasco MD Primary Care Prov ider Encounters Date Type Department Care Team Description 02/20/2024 Orders Only [facility] Cardiology [address] [place] [address] Clemente Leigh MD from Last [...] on file Legal Sex Female 12:19 AM CERTIFIED NURSE OPERATING ROOM Gender Identity Not on file Sexual Orientation Not on file Last Filed Vital Signs Vital Sign Reading Time Taken Comments Blood Pressure 121/68 07/23/2016 8:08 AM CDT Pulse 52 07/23/2016 8:08 AM CDT Temperature - - Respiratory Rate - - Oxygen Saturation 98% 07/23/2016 8:06 AM CDT Inhaled Oxygen Concentration - - Weight 65.3 kg (144 lb) 02/08/2018 10:16 AM CERTIFIED NURSE OPERATING ROOM Height 157.5 cm (5' 2 ) 02/08/2018 10:16 AM CERTIFIED NURSE OPERATING ROOM Body Mass Index 26.34 02/08/2018 10:16 AM CERTIFIED NURSE OPERATING ROOM Plan of Treatment Not on file Procedures Procedure Name Priority Date/Time Associated Diagnosis Comments CARDIOLOGY DOCUMENT SCAN Routine 02/16/2024 3:13 PM CERTIFIED NURSE OPERATING ROOM from Last 3 Months Results * Cardiology Document Scan (02/16/2024 3:13 PM CERTIFIED NURSE OPERATING ROOM) Anatomical Region Laterality Modality Other Clemente Leigh MD [facility] CARDIAC SERVICES PROC EDURES Final Result from Last 3 Months Insurance MEDICARE SOLUTIONS MEDICARE [employer]UTIONS Care Teams Performance Improvement Manager Relationship Specialty Start Date End Date Wing Carrasco MD [address] [place] [address] PCP - General 12/12/15
--- OUTSIDE RECORDS SUMMARY | 2024-04-20 08:34 | XMS_ITS | Continuity of Care Document ---
Author Organization [facility] Address [address] [place] [address] Phone Care Team Providers Care Transmission System Operator Name Role Phone Alexandru Larson MD Unavailable Unavailable Advance Directives Directive Yes / No Effective Date File Name No Information Encounters Encounter Description Practice Location Reason(s) For Visit Diagnoses Date Provider Providers Copied on Encounter [facility], [address], [place], [place], [id number], tel:[phone] [address] Noah MS Professional No Information Jun-0 7-200 5 Marsha Horvath. [address] [place], [place], [id number], [place]. tel:[phone] Referring Provider: Alexandru Corbett [address] [place], [address] . tel:[phone] Family History Family Member Type Diagnosis Age At Onset No Information Payers Payer name Insurance type Covered constitution party ID Authoriza tion(s) No Information Social History [...]
--- OUTSIDE RECORDS SUMMARY | 2024-04-20 08:34 | XMS_ITS | Clinical Summary ---
Author Organization [facility] Address [address] [place] [address] Care Team Providers Care Fast Food Manager Name Role Phone Wing Carrasco MD [...] Department Care Team Description 02/20/2024 Orders Only [facility] Cardiology [address] [place] [address] Clemente Leigh MD from Last [...] on file Legal Sex Female 12:19 AM NEUROLOGY PHYSICIAN ASSISTANT Gender Identity Not on file Sexual Orientation Not on file Obstetrics History Last Filed Vital Signs Vital Sign Reading Time Taken Comments Blood Pressure 121/68 07/23/2016 8:08 AM CDT Pulse 52 07/23/2016 8:08 AM CDT Temperature - - Respiratory Rate - - Oxygen Saturation 98% 07/23/2016 8:06 AM CDT Inhaled Oxygen Concentration - - Weight 65.3 kg (144 lb) 02/08/2018 10:16 AM NEUROLOGY PHYSICIAN ASSISTANT Height 157.5 cm (5' 2 ) 02/08/2018 10:16 AM NEUROLOGY PHYSICIAN ASSISTANT Body Mass Index 26.34 02/08/2018 10:16 AM NEUROLOGY PHYSICIAN ASSISTANT Plan of Treatment Not on file Procedures Procedure Name Priority Date/Time Associated Diagnosis Comments CARDIOLOGY DOCUMENT SCAN Routine 02/16/2024 3:13 PM NEUROLOGY PHYSICIAN ASSISTANT from Last 3 Months Results * Cardiology Document Scan (02/16/2024 3:13 PM NEUROLOGY PHYSICIAN ASSISTANT) Anatomical Region Laterality Modality Other Clemente Leigh MD CV CARDIAC SERVICES PROC EDURES Final Result from Last 3 Months Insurance MEDICARE [facility] MEDICARE Address: [address] [address] [place] [address] MEDICARE [facility] MEDICARE Address: [address] [address] [place] [address] Care Teams Fast Food Manager Relationship Specialty Start Date End Date Wing Carrasco MD [address] [place] [address] PCP - General 12/12/15
--- OUTSIDE RECORDS SUMMARY | 2024-04-20 08:34 | XMS_ITS | Clinical Summary ---
Author Organization [facility] Address [address], [address] [address] Phone Care Team Providers Care Integrated Pest Management Technician Name Role Phone Wing Carrasco MD Primary Care Provider + Shirin Renner MD Unavailable [phone] Sonu Fernandez DO Unavailable Allergies Active Allergy Reactions Criticality Noted Date Comments Diphenhydramine Hcl (Sleep) Unknown 02/19/20 16 Clonazepam Unknown 02/19/2016 Prednisone Unknown 02/19/2016 Hydroxyzine Hcl Unknown 02/19/2016 Medications EQUETRO 300 MG CAPSULE SR 12 HR 6 Active DULoxetine (CYMBALTA) [address] Particles Take 60 mg by mouth daily. Active LATUDA 80 MG Tablet 6 Active levothyroxine (SYNTHROID) 100 MCG Tablet 6 Active ascorbic acid (ASCORBIC ACID) 500 MG Tablet Take 500 mg by mouth daily. Active vitamin E (TOCOPHEROL) 400 UNIT Capsule Take 400 Units by mouth daily. Active [place]-3 Fatty Acids (OMEGA-3 FISH OIL) 1000 MG Capsule Take by mouth. Acti ve Magnesium Oxide 400 MG Capsule Take by mouth. Active traZODone (DESYREL) 50 MG Tablet 6 Active polyethylene glycol (GLYCOLAX, MIRALAX) Pack Take 1 Packet by mouth daily. Dissolve in 4-8 oz of liquid. 90 Packet 3 6 Active Additional Information Patient not taking.Reported on 08/09/2017 OLANZapine (ZYPREXA) 20 MG Tablet Take 20 mg by mouth nightly. Active ondansetron (ZOFRAN ODT) 4 MG TABLET DISPERSIBLE Take 1 Tab by mouth every 8 hours as needed for Nausea - 1st line. 20 Tab 3 8 Active ondansetron (ZOFRAN-ODT) 4 MG TABLET DISPERSIBLE TAKE 1 TABLET BY MOUTH EVERY 8 HOURS NEEDED FOR NAUSEA 20 Tab 1 8 Active omeprazole (PRILOSEC) 40 MG CAPSULE DELAYED RELEASE Take 1 Cap by mouth daily. 90 Cap 3 8 Active ondansetron (ZOFRAN-ODT) 4 MG TABLET DISPERSIBLE TAKE 1 TABLET BY MOUTH EVERY 8 HOURS NEEDED FOR NAUSEA 30 Tab 1 8 Active ondansetron (ZOFRAN-ODT) 4 MG TABLET DISPERSIBLE DISSOLVE 1 TABLET ON THE TONGUE EVERY 8 HOURS NEEDED FOR NAUSEA 60 Tab 2 8 Active Active Problems No known active problems Immunizations Immunization Administration Dates Next Due Covid-19 Vaccine, Vector-nr, Rs-ad26, Pf, 0.5 Ml ([facility]) 05/26/2020 Family History Medical History Relation Name Comments Diabetes Mother Relation Name Status Comments Mother Social History Tobacco Use Types Packs/Day Years Used Date Smoking Tobacco: Former Cigarettes 2 40 Smokeless Tobacco: Never Alcohol Use Standard Drinks/Week Comments No 0 (1 standard drink = 0.6 oz pur e alcohol) quit 40 years ago Comments No Sex and Gender Information Value Date Recorded Sex Assigned at Not on file Legal Sex Female 10:38 PM CDT Gender Identity Not on file Sexual Orientation Not on file 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 on file Not on file Not on file Last Filed Vital Signs Vital Sign Reading Time Taken Comments Blood Pressure 152/98 08/09/2017 2:20 PM CDT Pulse 69 08/09/2017 2:20 PM CDT Temperature 36.9 ??C (98.4 ??F) 08/09/2017 2:20 PM CD T Respiratory Rate 18 08/09/2017 2:20 PM CDT Oxygen Saturation 94% 08/09/2017 2:20 PM CDT Inhaled Oxygen Concentration - - Weight 83.9 kg (185 lb) 08/09/2017 2:20 PM CDT Height 157.5 cm (5' 2 ) 08/09/2017 2:20 PM CDT Body Mass Index 33.84 08/09/2017 2:20 PM CDT Plan of Treatment Health Maintenance Due Date Last Done Comments DEXA Bone Density 1945 Hepatitis C Virus (HCV) Screening 1945 TdaP Immunization 1945 Zoster Immunization (1 of 2) 1993 Pneumococcal Immunization (50+ years) (2 of 2 - PPSV23) 04/09/2017 04/09/2016 Respiratory Syncytial Virus (RSV) Immunization (Adult) (1 - 1-dose 75+ series) 2018 Influenza Immunization (#1) 2023 12/26/2014 SARS-COV-2 Immunization (3 - season) 2023 02/05/2021, 05/26/2020 Pneumococcal Immunization Combined Discontinued 04/09/2016 Hepatitis B Immunization Aged Out No longer eligible based on patient's age to complete this topic Meningococcal Immunization (ACWY) Aged Out No longer eligible based on patient's age to complete this topic Rotavirus Immunization Aged Out No lo nger eligible based on patient's age to complete this topic Care Teams Integrated Pest Management Technician Relationship Specialty Start Date End Date Wing Carrasco MD [address] [place] [address] PCP - General Family Medicine 02/09/16 Shirin Renner MD [address] [place] [address] Internal Medicine 02/11/16 Sonu Fernandez DO [address] [place] [address] Gastroenterology 02/11/16
[2024-04-20 09:40] LABS: Alanine Aminotransferase 26 U/L (6-35); Albumin Level 4.2 g/dL (3.5-5.1); Alkaline Phosphatase 92 U/L (38-126); Anion Gap 10 mmol/L (4-12); Aspartate Amino Transferase 25 U/L (14-36); Bilirubin,Total 0.7 mg/dL (0.2-1.3); Blood Urea Nitrogen 20 mg/dL (7-17); Calcium 9.5 mg/dL (8.4-10.2); Carbon Dioxide 26 mmol/L (22-30); Chloride 105 mmol/L (98-107); Cholesterol 143 mg/dL (0-200); Estimated Glomerular Filt Rate > 60; Glucose 103 mg/dL (65-110); HDL Direct 58 mg/dL; Potassium 4.3 mmol/L (3.4-5.0); Sodium 141 mmol/L (137-145); Triglycerides 76 mg/dL (<150)
[2024-04-20 09:50] LABS: LDL Cholesterol Direct 69 mg/dL
[2024-04-20 10:06] LABS: Hemoglobin A1C 5.9 % (<5.7)
[2024-04-23 12:23] LABS: Homocysteine 13.3 umol/L (<10.4)
[2024-04-23 17:13] LABS: Red Blood Cell Folate 738 ng/mL RBC (>280)
[2024-04-24 09:28] LABS: Methylmalonic Acid 192 nmol/L (85-423)
== END 2024-04-20 08:27 | disposition home or self-care (01) ==
PROVIDERS: PCP Family Medicine; Visit Provider Psychiatry & Neurology Neurology
DX: I70.0 Atherosclerosis of aorta (principal); G62.9 Polyneuropathy, unspecified; I63.9 Cerebral infarction, unspecified; F20.9 Schizophrenia, unspecified; F31.9 Bipolar disorder, unspecified; E66.9 Obesity, unspecified; H81.10 Benign paroxysmal vertigo, unspecified ear; Z13.1 Encounter for screening for diabetes mellitus; E55.9 Vitamin D deficiency, unspecified; E78.00 Pure hypercholesterolemia, unspecified
CPT/HCPCS: 36415; 80053; 80061; 82607; 82652; 82747; 83036; 83090; 83921; 84207; 84425; 84443

== ENCOUNTER 2024-05-04 10:46 | Outpatient (CLI) | payer MEDICARE, SELFPAY ==
--- NOTE | ~2024-05-04 | XR_ITS ---
HISTORY: M79.672 - Pain in left foot, dorsal pain, no injury COMPARISON: None TECHNIQUE: 3 views of the left foot were performed. FINDINGS: No acute fracture or dislocation is appreciated. Moderate degenerative disease is noted. The base of the fifth metatarsal is intact. A small calcaneal spur is noted. No significant soft tissue swelling is present. IMPRESSION: Moderate degenerative disease, without acute fracture. Reviewed, dictated and finalized at location A. ICAL ACCOUNT MANAGER
--- OUTSIDE RECORDS SUMMARY | 2024-05-04 10:59 | XMS_ITS ---
Author Organization [facility] Address [address] [place] [address] Care Team Providers Care Detention Officer Name Role Phone Nguyen Mccabe DO Primary Care Provider UnavailKellie Fisher Unavailable [phone] Gerard Munoz Unavailable [phone] Allergies Allergen (clinical drug ingredient) Drug/Non Drug Allergy documented on EMR Reaction Allergy Type Onset Date Status clonazepam clonazePAM Unknown Drug Allergy 06/23/2023 Acti ve predniSONE Unknown Drug Allergy 06/23/2023 Activ e diphenhydramine Diphenhydramine Unknown Drug Allergy 06/22 Active REASON FOR VISIT Follow up, Depression screening positive, Elevated or Hypertensive blood pressure reading Medications Medication SIG (Take, Route, Frequency, Duration) Notes Start Date End Date Status traZODone HCl 100 MG 1 tablet every nigh t Oral Once a day for 90 days Active Pantoprazole Sodium 40 MG Oral 06/23/2023 Active Ergocalciferol 1.25 MG (30546 UT) Oral 06/23/2023 Active Tamsulosin HCl 0.4 MG Oral 06/23/2023 Active Levothyroxine Sodium 50 MCG Oral 06/23/2023 Active Rosuvastatin Calcium 10 MG Oral for 30 Days Active OLANZapine 10 MG 1 tablet Oral Once a day for 90 days Active DULoxetine HCl 60 MG 1 capsule Orally On ce a day for 90 days Active Anoro Ellipta 62.5-25 MCG/INH Inhalation 06/23/2023 Unknown Social History Sex Assigned At : Social History Observation Description Sex Assigned At Female Problems Problem Type SNOMED Code ICD Code Onset Dates Problem Status W/U Status Risk Notes Problem Generalized anxiety disorder (17569208) Generalized anxiety disorder (F41.1) Active confirmed Problem Insomnia (030406562) Other insomnia (G47.09) Active confirmed Vital Signs Blood pressure systolic 123 mm Hg 04/26/19 25 Blood pressure diastolic 78 mm Hg 025 Heart Rate 74 /min 04/26/2024 Height 64.02 in 04/26/2024 Weight 206 lbs 04/26/2024 BMI 35.33 kg/m2 04/26/2024 Height-cm 162.61 cm 04/26/2024 Weight-kg 93.44 kg 04/26/2024 Encounters Encounter Location Date [facility] [address] [facility] [address] [place] [address] 04/26/2024 Gerard Munoz Schizoaffective disorder, bipolar type F25.0 ; Generalized anxiety disorder F41.1 and Other insomnia G47.09 Assessments Encounter Date Diagnosis (ICD Code) Assessment Notes Treatment Notes Treatment Clinical Notes Section Notes 04/26/2024 Schizoaffective disorder, bipolar type (ICD-10 - F25.0) 04/26/2024 Generalized anxiety disorder (ICD-10 - F41.1) 04/26/2024 Other insomnia (ICD-10 - G47.09) Plan Of Treatment Medication Medication Name Sig Start Date Stop Date Notes traZODone HCl 100 MG 1 tablet every nigh t Oral Once a day for 90 days OLANZapine 10 MG 1 tablet Oral Once a day for 90 days DULoxetine HCl 60 MG 1 capsule Orally On ce a day for 90 days Next Appt Details Provider Name:Kellie francisco, 06/22/2024 09:45:00 AM, [address], [facility] [address], [place], [address], Progress Notes * SUKUMAR MOSS ADOB:1944 (79 yo F)Acc No.[id number]:04/26/2024 Patient: Jacek SUKUMAR JOHNSON Provider: Haley MUNOZ MD :1945 A ge:79 Y S ex:Female Date:04/26/2024 Address:[address] [place] [address], [facility] Pcp:Nguyen Mccabe DO Subjective: * Chief Complaints: * 1 . Follow up. 2. Depression screening positive. 3. Elevated or Hypertensive blood pressure reading. * HPI: D epression Screening: TAMIKO-7 (2018 Edition) F eeling nervous, anxious, or on edge?Several days, N ot being able to stop or control worrying N ot at all, W orrying too much about different things S everal days, T rouble relaxing S everal days, B eing so restless that it is hard to sit still N ot at all, B ecoming easily annoyed or irritable?Not at all, F eeling afraid as if something awful might happen N ot at all, T otal TAMIKO-7 Score 3 , I f you checked any problems, how difficult have they made it for you to do your work, take care of things at home, or get along with other people? S omewhat difficult,?Interpretation of Total ( 0 to 4) No Anxiety. D epression screening: PHQ-9 L ittle interest or pleasure in doing things S everal days, F eeling down, depressed, or hopeless S everal days, T rouble falling or staying asleep, or sleeping too much N ot at all, F eeling tired or having little energy S everal days, P oor appetite or overeating S everal days, F eeling bad about yourself or that you are a failure, or have let yourself or your family down S everal days, T rouble concentrating on things, such as reading the newspaper or watching television S everal days, M oving or speaking so slowly that other people could have noticed; or the opposite, being so fidgety or restless that you have been moving around a lot more than usual N ot at all, T houghts that you would be better off or of hurting yourself in some way N ot at all, T otal Score 6, I nterpretation M ild Depression. I ntervention D epression Screening Findings P ositve, F ollow-Up for Depression M ental health treatment assessment, Patient follow-up to return when and if necessary, S uicide Risk Assessment Performed ,?Additional Evaluation for Depression P sychiatric interview and evaluation, N hortencia of the standardized tool used for adult depression screening: [facility] (PHQ-9).? * ROS: P erformance Met: N ormal blood pressure reading documented, follow-up not required ( G8783). * Medical History: P roblems: Bereavement, Body mass index 30+ - obesity, Chronic obstructive lung disease, Generalized anxiety disorder, Metabolic syndrome X, Minimal cognitive impairment, Persistent insomnia, Primary insomnia, Schizoaffective disorder, bipolar type, ,. * Social History: M igrated Social History: M igrated Social History: Alcohol Intake: None 2018,Tobacco Years: Former smoker 02/11/2023. * Medications: T aking Ergocalciferol 1.25 MG (78155 UT) Capsule Oral , Taking Tamsulosin HCl 0.4 MG Capsule Oral , Taking Levothyroxine Sodium 50 MCG Tablet Oral , Taking Pantoprazole Sodium 40 MG Tablet Delayed Release Oral , Taking traZODone HCl 100 MG Tablet 1 tablet every night Oral Once a day , Taking DULoxetine HCl 30 MG Capsule Delayed Release Particles 1 capsule Oral Once a day , Notes to Pharmacist: pt previously took 60 mg every other day, and 30 mg every other day; she is now taking 30 mg daily, Taking OLANZapine 10 MG Tablet TAKE 1 TABLET BY MOUTH AT NIGHT ONCE DAILY , Taking Rosuvastatin Calcium 10 MG Tablet Oral , Discontinued DULoxetine HCl 60 MG Capsule Delayed Release Particles 1 capsule Oral every other day , Notes to Pharmacist: takes 30 mg capsule every other day, and 60 mg capsule on the alternate days, Unknown Anoro Ellipta 62.5-25 MCG/INH Aerosol Powder Breath Activated Inhalation , Medication List reviewed and reconciled with the patient * Allergies: c lonazePAM: Allergy - Onset Date 06/23/2023, predniSONE: Allergy - Onset Date 06/23/2023, Diphenhydramine: Allergy - Onset Date 06/23/2023. Objective: * Vitals: B P:123/78mm Hg, HR:74/min, Wt:206lbs, Wt-k.44 kg, Ht: 64.02 in, Ht-cm: 162.61 cm, BMI:35.33Index, Body Surface Area: 2.05. * Examination: P sychiatry: Appearance: w ell-groomed, obese, wearing serenity prayer sweatshirt. Affect / mood: a ppropriate, full range. Attention: g ood. Attitude: c ooperative. Suicidal ideation: n one. Memory status: n o impairment noted. Degree of awareness of surroundings: w ithin normal limits.? Delusions: n o. Hallucinations: n o. Insight: g ood. Intellectual functioning: n o impairment noted. Judgement: g ood. Orientation: a wake, alert and oriented x 3. Perceptual disorders: n o perceptual disorder noted. Psychomotor activity: w ithin normal range. Speech / language: a ppropriate pitch/modulation, clear and coherent, normal rate, volume, and articulation (RVR), proper grammar used. Thought content: a ppropriate. Thought process: i ntact. Assessment: * Assessment: 1. S chizoaffective disorder, bipolar type - F25.0 (Primary) 2 . G eneralized anxiety disorder - F41.1 3 . O ther insomnia - G47.09 Plan: * Treatment: 2. G eneralized anxiety disorder Increase DULoxetine HCl Capsule Delayed Release Particles, 60 MG, 1 capsule, Orally, Once a day, 90 days, 90 Capsule, Refills 0. 3. O ther insomnia Refill traZODone HCl Tablet, 100 MG, 1 tablet every night, Oral, Once a day, 90 days, 90, Refills 0. * Procedure Codes: G 8783 NORMAL BP READING DOC F/U NOT RQR, 00861 BEHAV ASSMT W/SCORE & DOCD/STAND INSTRUMENT, G8752 MOST RECENT SYSTOLIC BP < 140MM HG, G8754 MOST RECENT DIASTOLIC BP < 90MM HG * Preventive Medicine: Counseling: B P Management: F IRST HYPERTENSIVE BP READING FOLLOW-UP PLAN: F ollow-up 1 month Follow up with your PCP, Michael WALDRON RECOMMENDATION: Michael waldron education, REFERRAL TO ALTERNATIVE / PRIMARY CARE PROVIDER: R eferral to general medical service Recommended Nonpharmacologic Interventions (Lifestyle Modifications) - Weight ReductionA heart-healthy diet , such as Dietary Approaches to Stop Hypertension (DASH) Eating PlanDietary Sodium RestrictionIncreased Physical ActivityModeration in alcohol consumption. * Billing Information: * Visit Code: * Procedure Codes: G8783 NORMAL BP READING DOC F/U NOT RQR. 72704 BEHAV ASSMT W/SCORE & DOCD/STAND INSTRUMENT. G8752 MOST RECENT SYSTOLIC BP < 140MM HG. G8754 MOST RECENT DIASTOLIC BP < 90MM HG. * Electronic signature of Henrietta Munoz MD on 05/04/2024 at 10:59 AM OPERA SINGER Sign off status: Pending * Provider: Haley MUNOZ MD Date: 0 04/26/2024 Generated for Og lopez/Ac/eTransmitting on: 05/04/2024 10:59 AM OPERA SINGER History and Physical Notes * HPI (History of Present Illness) Category Sub-Category Detail Notes Category Not es Depression screening PHQ-9 Little inte rest or pleasure in doing things: Several days Feeling down, depressed, or hopeless: Se veral days Trouble falling or staying asleep, or sl eeping too much: Not at all Feeling tired or having little energy: S everal days Poor appetite or overeating: Several day s Feeling bad about yourself o r that you are a failure, or have let yourself or your family down: Several days Trouble concentrating on thi ngs, such as [...] some way: Not at all Total Score: 6 Interpretation: Mild Depression Intervention Depression Screening Findings: P ositve Follow-Up for Depression: [facility] treatment assessment, Patient follow-up to return when and if necessary Suicide Risk Assessment Performed: Additional Evaluation for De pression: Psychiatric interview and evaluation Name of the standardized too l used for adult depression screening:: Patient Health Questionnaire (PHQ-9) Depression Screening TAMIKO-7 (2018 Edition) Feelin g nervous, anxious, or on edge: Several days Not being able to stop or control worryi ng: Not at all Worrying too much about different things : Several days Trouble relaxing: Several days Being so restless that it is hard to sit still: Not at all Becoming easily annoyed or irritable: No t at all Feeling afraid as if something awful christine ht happen: Not at all Total TAMIKO-7 Score: 3 If you checked any problems, how difficult have they made it for you to do your work, take care of things at home, or get along with other people?: Somewhat difficult Interpretation of Total: (0 to 4) No Anx iety Examination Category Sub-Category Detail Notes Category Not es Psychiatry Appearance: well-groomed, ob jaxson, wearing serenity prayer sweatshirt Attitude: cooperative Psychomotor activity: within normal rang [...]
--- OUTSIDE RECORDS SUMMARY | 2024-05-04 10:59 | XMS_ITS | Continuity of Care Document ---
Author Organization [facility] Address [address] [place] [address] Phone Care Team Providers Care Barn Boss Name Role Phone Alexandru Larson MD Unavailable Unavailable Advance Directives Directive Yes / No Effective Date File Name No Information Encounters Encounter Description Practice Location Reason(s) For Visit Diagnoses Date Provider Providers Copied on Encounter [facility], [address], [place], [place], [address], tel:[phone] SEC Noah SC Professional No Information Jun-0 7-200 5 Marsha Horvath. [address] [place], [place], [address], [place]. tel:[phone] Referring Provider: Alexandru Corbett [address] [place], [address] . tel:[phone] Family History Family Member Type Diagnosis Age [...]
--- OUTSIDE RECORDS SUMMARY | 2024-05-04 10:59 | XMS_ITS | Clinical Summary ---
Author Organization [facility] Address [address] [facility] Attn: Epic Prelude ADT [employer] [address] Care Team Providers Care Quality Technician Name Role Phone Unavailable Primary Care Provider Unavailabl e Social History Tobacco Use Types Packs/Day Years Used Date Smoking Tobacco: Never Assessed Comments Unknown Sex and Gender Information Value Date Recorded Sex Assigned at Not on file Legal Sex Female 3:18 AM WILDLAND FIRE OPERATIONS SPECIALIST Gender Identity Not on file Sexual [...]
--- OUTSIDE RECORDS SUMMARY | 2024-05-04 10:59 | XMS_ITS | Referral Summary ---
Author Organization [facility] Address [address] [place] [address] Care Team Providers Care Hand Roller Engraver Name Role Phone Wing Carrasco MD Primary Care Prov ider Encounters Date Type Department Care Team Description 02/20/2024 Orders Only [facility] Cardiology [address] [place] [address] Clemente Leigh MD from Last [...] on file Legal Sex Female 12:19 AM FINANCIAL MANAGEMENT CONSULTANT Gender Identity Not on file Sexual Orientation Not on file Last Filed Vital Signs Vital Sign Reading Time Taken Comments Blood Pressure 121/68 07/23/2016 8:08 AM CDT Pulse 52 07/23/2016 8:08 AM CDT Temperature - - Respiratory Rate - - Oxygen Saturation 98% 07/23/2016 8:06 AM CDT Inhaled Oxygen Concentration - - Weight 65.3 kg (144 lb) 02/08/2018 10:16 AM FINANCIAL MANAGEMENT CONSULTANT Height 157.5 cm (5' 2 ) 02/08/2018 10:16 AM FINANCIAL MANAGEMENT CONSULTANT Body Mass Index 26.34 02/08/2018 10:16 AM FINANCIAL MANAGEMENT CONSULTANT Plan of Treatment Not on file Procedures Procedure Name Priority Date/Time Associated Diagnosis Comments CARDIOLOGY DOCUMENT SCAN Routine 02/16/2024 3:13 PM FINANCIAL MANAGEMENT CONSULTANT from Last 3 Months Results * Cardiology Document Scan (02/16/2024 3:13 PM FINANCIAL MANAGEMENT CONSULTANT) Anatomical Region Laterality Modality Other Clemente Leigh MD CV CARDIAC SERVICES PROC EDURES Final Result from Last 3 Months Insurance MEDICARE [employer] MED[employer]ARE [employer] Care Teams Hand Roller Engraver Relationship Specialty Start Date End Date Wing Carrasco MD [address] [place] [address] PCP - General 12/12/15
--- OUTSIDE RECORDS SUMMARY | 2024-05-04 10:59 | XMS_ITS | Clinical Summary ---
Author Organization [facility] Address [address], [address] [address] Phone Care Team Providers Care Occupancy Specialist Name Role Phone Wing Carrasco MD Primary Care Provider + Shirin Renner MD Unavailable [phone] Sonu Fernandez DO Unavailable [phone] Allergies Active Allergy Reactions Criticality Noted Date [...] Take 400 Units by mouth daily. Active [place]-3 Fatty Acids (OMEGA-3 FISH OIL) 1000 MG [...] Covid-19 Vaccine, Vector-nr, Rs-ad26, Pf, 0.5 Ml ([place]) 05/26/2020 Family History Medical History Relation Name [...] 69 08/09/2017 2:20 PM CDT Temperature 36.9 C (98.4 F) 08/09/2017 2:20 PM CDT Respiratory Rate 18 08/09/2017 2:20 PM CDT [...] Influenza Immunization (#1) 2023 12/26/2014 SARS-COV-2 Immunization ( season) 2023 02/05/2021, 05/26/2020 Pneumococcal Immunization Combined Discontinued 04/09/2016 Hepatitis B Immunization Aged Out No longer eligible based on patient's age to complete this topic Meningococcal Immunization (ACWY) Aged Out No longer eligible based on patient's age to complete this topic Rotavirus Immunization Aged Out No lo nger eligible based on patient's age to complete this topic Care Teams Occupancy Specialist Relationship Specialty Start Date End Date Wing Carrasco MD [address] [place] [address] PCP - General Family Medicine 02/09/16 Shirin Renner MD [address] [facility] [address] [place] [address] Internal Medicine 02/11/16 Sonu Fernandez DO [address] [facility] [address] [place] [address] Gastroenterology 02/11/16
--- OUTSIDE RECORDS SUMMARY | 2024-05-04 10:59 | XMS_ITS | Encounter Summary ---
Author Organization [employer] Address [address] [place] [address] Care Team Providers Care Detasseler Name Role Phone Unavailable Primary Care Provider Unavailabl e Encounter Details Date Type Department Care Team (Late st Contact Info) Description 06/10/2003 Outpatient Historical [facility] [address] [place] [address] Mark Anthony Acosta DO NO ADDRESS ON FILE Social History Tobacco Use Types Packs/Day Years Used Date Smoking Tobacco: Never Assessed Comments Unknown Sex and Gender Information Value Date Recorded Sex Assigned at Not on file Legal Sex Female 3:18 AM CYLINDRICAL MIXER Gender Identity Not on file Sexual Orientation Not on file documented as of this encounter Plan of Treatment Not on file documented as of this encounter Visit Diagnoses Not on filedocumented in this encounter
--- OUTSIDE RECORDS SUMMARY | 2024-05-04 10:59 | XMS_ITS | Encounter Summary ---
Author Organization [employer] Address 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
--- OUTSIDE RECORDS SUMMARY | 2024-05-04 10:59 | XMS_ITS | Clinical Summary ---
Author Organization [facility] Address [address] [place] [address] Care Team Providers Care Fiber Technician Name Role Phone Unavailable Primary Care [...] Documents on File Type Date Recorded Patient Order Takers Supervisor Expl 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
--- OUTSIDE RECORDS SUMMARY | 2024-05-04 10:59 | XMS_ITS | Clinical Summary ---
Author Organization [facility] Address [address] [place] [address] Care Team Providers Care Jack Tamp Operator Name Role Phone Wing Carrasco MD Primary [...] Department Care Team Description 02/20/2024 Orders Only [facility] Cardiology [address] [place] [address] Clemente Leigh MD from Last [...] on file Legal Sex Female 12:19 AM FORKLIFT MATERIAL HANDLER Gender Identity Not on file Sexual Orientation Not on file Obstetrics History Last Filed Vital Signs Vital Sign Reading Time Taken Comments Blood Pressure 121/68 07/23/2016 8:08 AM CDT Pulse 52 07/23/2016 8:08 AM CDT Temperature - - Respiratory Rate - - Oxygen Saturation 98% 07/23/2016 8:06 AM CDT Inhaled Oxygen Concentration - - Weight 65.3 kg (144 lb) 02/08/2018 10:16 AM FORKLIFT MATERIAL HANDLER Height 157.5 cm (5' 2 ) 02/08/2018 10:16 AM FORKLIFT MATERIAL HANDLER Body Mass Index 26.34 02/08/2018 10:16 AM FORKLIFT MATERIAL HANDLER Plan of Treatment Not on file Procedures Procedure Name Priority Date/Time Associated Diagnosis Comments CARDIOLOGY DOCUMENT SCAN Routine 02/16/2024 3:13 PM FORKLIFT MATERIAL HANDLER from Last 3 Months Results * Cardiology Document Scan (02/16/2024 3:13 PM FORKLIFT MATERIAL HANDLER) Anatomical Region Laterality Modality Other Clemente Leigh MD CV CARDIAC SERVICES PROC EDURES Final Result from Last 3 Months Insurance MEDICARE SOLUTIONS MEDICARE SOLUTIONS Care Teams Jack Tamp Operator Relationship Specialty Start Date End Date Wing Carrasco MD [address] [place] [address] PCP - General 12/12/15
--- OUTSIDE RECORDS SUMMARY | 2024-05-04 11:00 | XMS_ITS ---
Author Organization [facility] Outline App Address [facility] [address] [facility] [address] [place] [address] Care Team Providers Care Performance Reporter Name Role Phone Nguyen Mccabe DO Primary Care Provider Kellie Lopez Unavailable [phone] Gerard Corral Unavailable [phone] REASON FOR VISIT DULoxetine Medications Medication SIG [...] Female Encounters Encounter Location Date Provider Diagnosis [facility] [employer] [place] [address] [facility] [address] [facility] [address] [place] [address] 03/30/2024 Gerard Corral Schizoaffective disorder, bipolar type [...] 30 mg daily Next Appt Details Provider Name:Kellie francisco, 06/22/2024 09:45:00 AM, [address], [address], [place], [address], Progress Notes * SUKUMAR MOSS ADOB:1944 (79 yo F)Acc No.[id number]:03/30/2024 Patient: SUKUMAR ROBBINS :1945 A ge:79 Y S ex:Female Address:[address] [place] [address], [address] * Refills Refill DULoxetine HCl Capsule Delayed Release Particles, 30 MG, Oral, 90 Capsule, 1 capsule, Once a day, 90 days, Refills=0 Subjective: * Chief Complaints: * D ULoxetine * Medical History: * Surgical History: * Hospitalization/Major Diagno stic Procedure: * Medications: Objective: * Vitals: * Physical Examination: Assessment: * Assessment: 1. S chizoaffective disorder, bipolar type - F25.0 Plan: * Treatment: * Procedure Codes: * true * Date: Generated for Og lopez/Ac/Robertitting on: 0 05/04/2024 10:59 AM PULP AND PAPER TESTER
--- OUTSIDE RECORDS SUMMARY | 2024-05-04 11:00 | XMS_ITS | Continuity of Care Document ---
Author Organization [facility] [facility] Address [address] [place] [address] Phone Care Team Providers Care Cinder Pitman Name Role Phone Yoan Cuenca MD Unavailable Unavailable Advance Directives Directive Yes / No Effective Date File Name No Information Encounters Encounter Description Practice Location Reason(s) For Visit Diagnoses Date Provider Providers Copied on Encounter [facility], [address], [place], [place], [address], [place] tel:[phone] [facility] No Information [facility]. [address] , [place], [place], [address], [place]. tel:[phone] Referring Provider: Clemente Blackman DO, [address], [place], [address]. tel:[phone] Family History Family Member Type Diagnosis Age At Onset No Information Payers Payer name Insurance type Covered libertarian ID Authoriza tion(s) [facility] MDCR COMPLETE HMO MB [id number] Social History Type Description Quantity Date Captured [...]
== END 2024-05-04 10:47 | disposition home or self-care (01) ==
LOC: ANHIMG 10:48
PROVIDERS: PCP Family Medicine; Visit Provider Family Medicine
DX: M19.072 Primary osteoarthritis, left ankle and foot (principal)
CPT/HCPCS: 73630

== ENCOUNTER 2024-05-29 10:55 | Outpatient (CLI) | payer MEDICARE, SELFPAY ==
--- NOTE | ~2024-05-29 | XR_ITS ---
CHEST RADIOGRAPH, PA AND LATERAL CLINICAL HISTORY: R93.89 - Abnormal findings on diagnostic imaging of other... . COMPARISON: 02/15/2024 TECHNIQUE: PA and lateral views of the chest. FINDINGS The cardiomediastinal silhouette is unremarkable. The lungs are clear. Visualized osseous structures and soft tissues are unremarkable. IMPRESSION: No focal infiltrate or effusion. Reviewed, dictated and finalized at location A.
--- OUTSIDE RECORDS SUMMARY | 2024-05-29 12:39 | XMS_ITS | Encounter Summary ---
Author Organization [employer] Address [address] [place] [address] Care Team Providers Care Sandfill Operator Name Role Phone Unavailable Primary Care Provider Unavailabl e Encounter Details Date Type Department Care Team (Late st Contact Info) Description 06/24/2003 Outpatient Historical [facility] [address] [place] [address] Mark Anthony Acosta DO NO ADDRESS ON FILE Social History Tobacco Use Types Packs/Day Years Used Date Smoking Tobacco: Never Assessed Comments Unknown Sex and Gender Information Value Date Recorded Sex Assigned at Not on file Legal Sex Female 3:18 AM ACADEMIC SPECIALIST Gender Identity Not on file Sexual Orientation Not on file documented as of this encounter Plan of Treatment Not on file documented as of this encounter Visit Diagnoses Not on filedocumented in this encounter
--- OUTSIDE RECORDS SUMMARY | 2024-05-29 12:39 | XMS_ITS | Referral Summary ---
Author Organization [facility] Address [address] [place] [address] Care Team Providers Care Administrative Intern Name Role Phone Wing Carrasco MD Primary [...] every day 0 0 03/09/2016 Active Immunizations Immunization Administration Dates Next Due Influenza, Trivalent, IM [...] on file Legal Sex Female 12:19 AM JUNIOR ACCOUNT MANAGER Gender Identity Not on file Sexual Orientation Not on file Last Filed Vital Signs Vital Sign Reading Time Taken Comments Blood Pressure 121/68 07/23/2016 8:08 AM CDT Pulse 52 07/23/2016 8:08 AM CDT Temperature - - Respiratory Rate - - Oxygen Saturation 98% 07/23/2016 8:06 AM CDT Inhaled Oxygen Concentration - - Weight 65.3 kg (144 lb) 02/08/2018 10:16 AM JUNIOR ACCOUNT MANAGER Height 157.5 cm (5' 2 ) 02/08/2018 10:16 AM JUNIOR ACCOUNT MANAGER Body Mass Index 26.34 02/08/2018 10:16 AM JUNIOR ACCOUNT MANAGER Plan of Treatment Not on file Insurance MEDICARE [employer]UTIONS MED[employer]ARE SOLUTIONS Care Teams Administrative Intern Relationship Specialty Start Date End Date Wing Carrasco MD [address] [place] [address] PCP - General 12/12/15
--- OUTSIDE RECORDS SUMMARY | 2024-05-29 12:39 | XMS_ITS | Continuity of Care Document ---
Author Organization [facility] Address [address] [address] [place] [address] Phone Care Team Providers Care Infection Control Preventionist Name Role Phone Alexandru Lasron MD Unavailable Unavailable Advance Directives Directive Yes / No Effective Date File Name No Information Encounters Encounter Description Practice Location Reason(s) For Visit Diagnoses Date Provider Providers Copied on Encounter [facility], [address], [place], [place], [address], tel:[phone] [place] Professional No Information Jun-0 7-200 5 Marsha Horvath. [address] [place], [place], [address], [place]. tel:[phone] Referring Provider: Alexandru Corbett [address] [place], [address] . tel:[phone] Family History Family Member Type Diagnosis Age [...]
--- OUTSIDE RECORDS SUMMARY | 2024-05-29 12:39 | XMS_ITS | Encounter Summary ---
Author Organization [employer] Address [address] [place] [address] Care Team Providers Care Cotton Roll Packer Name Role Phone Unavailable Primary Care Provider Unavailabl e Encounter Details Date Type Department Care Team (Late st Contact Info) Description 06/10/2003 Outpatient Historical [facility] [address] [place] [address] Mark Anthony Acosta DO NO ADDRESS ON FILE Social History Tobacco Use Types Packs/Day Years Used Date Smoking Tobacco: Never Assessed Comments Unknown Sex and Gender Information Value Date Recorded Sex Assigned at Not on file Legal Sex Female 3:18 AM AUTOMOTIVE ALIGNMENT SPECIALIST Gender Identity Not on file Sexual Orientation Not on file documented as of this encounter Plan of Treatment Not on file documented as of this encounter Visit Diagnoses Not on filedocumented in this encounter
--- OUTSIDE RECORDS SUMMARY | 2024-05-29 12:39 | XMS_ITS | Clinical Summary ---
Author Organization [facility] Address [address] [place] [address] Care Team Providers Care Security Installation Sales Technician Name Role Phone Wing Carrasco MD [...] Next Due Influenza, Trivalent, IM (MDV) 12/20/2015 Family History Medical History Relation Name [...] on file Legal Sex Female 12:19 AM SEALS ENGRAVER Gender Identity Not on file Sexual Orientation Not on file Obstetrics History Last Filed Vital Signs Vital Sign Reading Time Taken Comments Blood Pressure 121/68 07/23/2016 8:08 AM CDT Pulse 52 07/23/2016 8:08 AM CDT Temperature - - Respiratory Rate - - Oxygen Saturation 98% 07/23/2016 8:06 AM CDT Inhaled Oxygen Concentration - - Weight 65.3 kg (144 lb) 02/08/2018 10:16 AM SEALS ENGRAVER Height 157.5 cm (5' 2 ) 02/08/2018 10:16 AM SEALS ENGRAVER Body Mass Index 26.34 02/08/2018 10:16 AM SEALS ENGRAVER Plan of Treatment Not on file Insurance MEDICARE SOLUTIONS [facility] MEDICARE Address: [facility] [address] [place] [address] MEDICARE SOLUTIONS Care Teams Security Installation Sales Technician Relationship Specialty Start Date End Date Wing Carrasco MD [address] [place] [address] PCP - General 12/12/15
--- OUTSIDE RECORDS SUMMARY | 2024-05-29 12:39 | XMS_ITS | Clinical Summary ---
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
--- OUTSIDE RECORDS SUMMARY | 2024-05-29 12:39 | XMS_ITS | Clinical Summary ---
Author Organization [facility] Address [address] [place] [address] Care Team Providers Care Recruiter Manager Name Role Phone Unavailable Primary Care [...] Documents on File Type Date Recorded Patient Parts Counter Representative Expl 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
--- OUTSIDE RECORDS SUMMARY | 2024-05-29 12:39 | XMS_ITS ---
Author Organization [facility] [employer] Address [address] [place] [address] Care Team Providers Care Retail Team Member Name Role Phone Nguyen Mccabe DO Primary Care Provider UnavailKellie Fisher Unavailable [phone] Gerard Munoz Unavailable [phone] Allergies Allergen (clinical drug ingredient) Drug/Non Drug Allergy documented on EMR Reaction Allergy Type Onset Date Status clonazepam clonazePAM Unknown Drug Allergy 06/23/2023 Acti ve predniSONE Unknown Drug Allergy 06/23/2023 Activ e diphenhydramine Diphenhydramine Unknown Drug Allergy 06/22 Active REASON FOR VISIT Follow up, Depression screening positive, Elevated or Hypertensive blood pressure reading, PSYCHOTHERAPY W/PATIENT W/E M, MIPS Elder maltreatment Medications Medication SIG (Take, Route, Frequency, Duration) Notes Start Date End Date Status traZODone HCl 100 MG 1 tablet every nigh t Oral Once a day for 90 days Active Pantoprazole Sodium 40 MG Oral 06/23/2023 Active Ergocalciferol 1.25 MG (32788 UT) Oral 06/23/2023 Active Tamsulosin HCl 0.4 [...] Status Risk Notes Problem Generalized anxiety disorder (13713277) Generalized anxiety disorder (F41.1) Active confirmed Problem Insomnia (279673019) Other insomnia (G47.09) Active confirmed Vital Signs Blood pressure systolic 123 mm Hg 04/26/19 25 Blood pressure diastolic 78 mm Hg 025 Heart Rate 74 /min 04/26/2024 Height 64.02 in 04/26/2024 Weight 206 lbs 04/26/2024 BMI 35.33 kg/m2 04/26/2024 Height-cm 162.61 cm 04/26/2024 Weight-kg 93.44 kg 04/26/2024 Encounters Encounter Location Date Provider Diagnosis [facility] [address] [place] [address] 04/26/2024 Gerard Munoz Schizoaffective disorder, bipolar type [...] day for 90 days Next Appt Details Follow Up: 2 Months, Reason: schizoaffective d/o,nick,insomnia Provider Name:Kellie francisco, 06/22/2024 09:45:00 AM, [address], [address], [place], [address], Progress Notes * SUKUMAR MOSS ADOB:1944 (79 yo F)Acc No.[id number]:04/26/2024 Patient: SUKUMAR ROBBINS Provider: Haley MUNOZ MD :1945 A ge:79 Y S ex:Female Date:04/26/2024 Address:[address] [place] [address], [facility] Pcp:Nguyen Mccabe DO Subjective: * Chief Complaints: * 1 . Follow up. 2. Depression screening positive. 3. Elevated or Hypertensive blood pressure reading. 4. PSYCHOTHERAPY W/PATIENT W/E M. 5. MIPS Elder maltreatment. * HPI: D epression Screening: NICK-7 (2018 Edition) F eeling nervous, anxious, or [...] happen N ot at all, T otal NICK-7 Score 3 , I f you checked [...] if necessary, S uicide Risk Assessment Performed 0 04/26/2024, A dditional Evaluation for Depression P sychiatric interview and evaluation, N hortencia of the standardized tool used for adult depression screening: [facility] Health Questionnaire (PHQ-9). P sychotherapy with Med eval: Therapy with Med eval P sychotherapy with Medication management Y es, P sychotherapy done Time Spent Minute 2 0 to 30 min, T ype of therapy done S upportive Therapy. F unctional Status: reports residual sx of depression, had decreased duloxetine to 30 mg daily discussed plans for transition to new provider since Dr. Munoz is leaving private practice; offered reassurance that she will be well taken care of at [facility]. E lderly Maltreatment: Screening Questions P hysical Abuse - Infliction of physical injury by punching, beating, kicking, biting, burning, shaking, or other actions that result in harm. N o, E motional/Psychological Abuse - Willful infliction of mental or emotional anguish by threat, humiliation, isolation, or other verbal or nonverbal conduct. N o, N eglect - Involves attitudes of others or actions caused by others - such as family members, friends, or institutional caregivers - that have an extremely detrimental effect upon well-being N o, S exual Abuse - Forcing of undesired sexual behavior by one person upon another against their will who are either competent or unable to fully comprehend and/or give consent. This may also be called molestation. N o, E lder Abandonment - Desertion of an elderly person by an individual who has assumed responsibility for providing care for an elder, or by a person with physical custody of an elder No, F inancial or Material Exploitation - Taking advantage of a person for monetary gain or profit N o, U nwarranted Control - Controlling a person's ability to make choices about living situations, household finances, and medical care. N o. S creening Results R esults E lder maltreatment screen documented as negative, follow-up is not required (G8734). * ROS: P erformance Met: N ormal blood pressure reading documented, follow-up not required ( G8783)Performance Met: N ormal blood pressure reading documented, follow-up not required ( G8783). * Medical History: P papi: Bereavement, Body mass index 30+ - obesity, Chronic obstructive lung disease, Generalized anxiety disorder, Metabolic syndrome X, Minimal cognitive impairment, Persistent insomnia, Primary insomnia, Schizoaffective disorder, bipolar type, ,. * Social History: M igrated Social History: M igrated Social History: Alcohol Intake: None 2018,Tobacco Years: Former smoker 02/11/2023. * Medications: T aking Ergocalciferol 1.25 MG (22414 UT) Capsule Oral , Taking Tamsulosin HCl [...] sweatshirt. Affect / mood: a ppropriate, full range, sad. Attention: g ood. Attitude: c ooperative. Suicidal [...] 90, Refills 0. * Procedure Codes: G 8733 DOC ELDER MALTX SCR&DOC PLAN TM SCR, 29124 BEHAV ASSMT W/SCORE & DOCD/STAND INSTRUMENT, G8783 NORMAL BP READING DOC F/U NOT RQR, G8734 ELDER MALTX SCR DOC NEG NO F/U RQR, 23379 PSYCHOTHERAPY W/PATIENT W/E&M SRVCS 30 MIN, G8752 MOST RECENT SYSTOLIC BP < 140MM HG, G8754 MOST RECENT DIASTOLIC BP < 90MM HG, G8734 ELDER MALTX SCR DOC NEG NO F/U RQR * Follow Up: 2 Months (Reason: schizoaffective d/o,nick,insomnia) * Billing Information: * Visit Code: 58128 OFFICE OUTPATIENT VISIT 25 MINUTES DETAILED HISTORY AND EXAM/MODERATE MEDICAL DECISION MAKING. * Procedure Codes: G8733 DOC ELDER MALTX SCR&DOC PLAN TM SCR. 67702 BEHAV ASSMT W/SCORE & DOCD/STAND INSTRUMENT. G8783 NORMAL BP READING DOC F/U NOT RQR. G8734 ELDER MALTX SCR DOC NEG NO F/U RQR. 62786 PSYCHOTHERAPY W/PATIENT W/E&M SRVCS 30 MIN. G8752 MOST RECENT SYSTOLIC BP < 140MM HG. G8754 MOST RECENT DIASTOLIC BP < 90MM HG. G8734 ELDER MALTX SCR DOC NEG NO F/U RQR. * HER SKINNER Sign off status: Completed true * Provider: Haley MUNOZ MD Date: 0 04/26/2024 Generated for Og lopez/Ac/eTransmitting on: 0 05/29/2024 12:38 PM CDT History and Physical Notes * HPI (History [...] Screening Findings: P ositve Follow-Up for Depression: [facility] treatment assessment, Patient follow-up to return when and if necessary Suicide Risk Assessment Performed: 04/26 Additional Evaluation for Depression: Ps ychiatric interview and evaluation Name of the standardized too l used for adult depression screening:: Patient Health Questionnaire (PHQ-9) Functional Status reports residual sx of depression, had decreased duloxetine to 30 mg daily discussed plans for transition to new provider since Dr. Munoz is leaving private practice; offered reassurance that she will be well taken care of at [facility] Depression Screening NICK-7 (2018 Edition) Feeling nervous, anxious, or on edge: Several days [...] christine ht happen: Not at all Total NICK-7 Score: 3 If you checked any problems, how difficult have they made it for you to do your work, take care of things at home, or get along with other people?: Somewhat difficult Interpretation of Total: (0 to 4) No Anx iety Psychotherapy with Med eval Therapy with Med driss l Psychotherapy with Medication management: Yes Psychotherapy done Time Spent Minute: 20 to 30 min Type of therapy done: Supportive Therapy Elderly Maltreatment Screening Questions Physica l Abuse - Infliction of physical injury by punching, beating, kicking, biting, burning, shaking, or other actions that result in harm.: No Emotional/Psychological Abus e - Willful infliction of mental or emotional anguish by threat, humiliation, isolation, or other verbal or nonverbal conduct.: No Neglect - Involves attitudes of others or actions caused by others - such as family members, friends, or institutional caregivers - that have an extremely detrimental effect upon well-being: No Sexual Abuse - Forcing of un desired sexual behavior by one person upon another against their will who are either competent or unable to fully comprehend and/or give consent. This may also be called molestation.: No Elder Abandonment - Desertio n of an elderly person by an individual who has assumed responsibility for providing care for an elder, or by a person with physical custody of an elder: No Financial or Material Exploi tation - Taking advantage of a person for monetary gain or profit: No Unwarranted Control - Contro lling a person's ability to make choices about living situations, household finances, and medical care.: No Screening Results Results: Elder maltr eatment screen documented as negative, follow-up is not required (G8734) Examination Category Sub-Category Detail Notes Category Not es Psychiatry Appearance: well-groomed, ob jaxson, wearing serenity prayer sweatshirt Attitude: cooperative Psychomotor activity: within normal rang e Attention: good Degree of awareness of surroundings: wit hin normal limits Orientation: awake, alert and rajinder ented x 3 Affect / mood: appropriate, full ra nge, sad Speech / language: appropriate pitch/mo dulation, clear and coherent, normal rate, volume, and articulation (RVR), proper grammar used Insight: good Judgement: good Thought process: intact Thought content: appropriate Perceptual disorders: no perceptual diso rder noted Suicidal ideation: none Intellectual functioning: no impairment noted Memory status: no impairment noted Delusions: no Hallucinations: no
--- OUTSIDE RECORDS SUMMARY | 2024-05-29 12:39 | XMS_ITS | Clinical Summary ---
Author Organization [facility] Address [address], [address] [address] Phone Care Team Providers Care Marine Steam Fitter Name Role Phone Wing Carrasco MD Primary Care Provider + Shirin Renner MD Unavailable [phone] Sonu Fernandez DO Unavailable [phone] Allergies Active Allergy Reactions Criticality Noted [...] Take 400 Units by mouth daily. Active [place]-3 Fatty Acids (OMEGA-3 FISH OIL) 1000 MG [...] Covid-19 Vaccine, Vector-nr, Rs-ad26, Pf, 0.5 Ml ([employer]) 05/26/2020 Family History Medical History Relation Name [...] age to complete this topic Care Teams Marine Steam Fitter Relationship Specialty Start Date End Date Wing Carrasco MD [address] [place] [address] PCP - General Family Medicine 02/09/16 Shirin Renner MD [address] [facility] [address] [place] [address] Internal Medicine 02/11/16 Sonu Fernandez DO [address] [facility] [address] [place] [address] Gastroenterology 02/11/16
--- OUTSIDE RECORDS SUMMARY | 2024-05-29 12:39 | XMS_ITS | Continuity of Care Document ---
Author Organization [employer] Address [address] [place] [address] Phone Care Team Providers Care International Coordinator Name Role Phone Yoan Cuenca MD Unavailable Unavailable Advance Directives Directive Yes / No Effective Date File Name No Information Encounters Encounter Description Practice Location Reason(s) For Visit Diagnoses Date Provider Providers Copied on Encounter [facility], [address], [place], [place], [id number], [place] tel:[phone] [facility] No Information [facility]. [address] , [place], [place], [id number], [place]. tel:[phone] Referring Provider: Clemente Blackman DO, [address], [place], [address]. tel:[phone] Family History Family Member Type Diagnosis Age At Onset No Information Payers Payer name Insurance type Covered constitution party ID Authoriza tion(s) [facility] MDCR COMPLETE HMO MB [id number] Social History Type Description Quantity Date Captured [...]
--- OUTSIDE RECORDS SUMMARY | 2024-05-29 12:40 | XMS_ITS ---
Author Organization [facility] [employer] Address [address] [place] [address] Care Team Providers Care Search Consultant Name Role Phone Nguyen Mccabe DO Primary Care Provider UnavailKellie Fisher Unavailable [phone] Gerard Munoz Unavailable [phone] Allergies Allergen (clinical drug ingredient) Drug/Non Drug [...] MCG Oral 06/23/2023 Active Ergocalciferol 1.25 MG (51877 UT) Oral 06/23/2023 Active Tamsulosin HCl 0.4 [...] 02/23/2024 Encounters Encounter Location Date Provider Diagnosis [facility] [address] [address] 02/23/2024 Thena Shayna Schizoaffective disorder, bipolar type [...] the Alzheimer's Disease Education and Referral Center (ADEOK) ( ; http://www.al.nih.gov/Alzheimers/), Next Appt Details Follow Up: 2 Months, Reason: schizoaffective d/o, nick Provider Name:Kellie Ortiz nolan, 06/22/2024 09:45:00 AM, [facility] [facility] [address], [facility] [address], [address], Progress Notes * AJAYMARELYAN ADOB:1944 (79 yo F)Acc No.[id number]:02/23/2024 Patient: Jacek KUMARIGRISELDASUKUMAR STEINBERG Provider: Haley MUNOZ MD :1945 A ge:78 Y S ex:Female Date:02/23/2024 Address:[address] [place], [place] [address] Pcp:Nguyen Mccabe DO Subjective: * Chief Complaints: * 1 . Follow up. 2. Functional status reviewed. 3. Phq less than 5. * HPI: D epression Screening: NICK-7 (2018 Edition) F eeling nervous, anxious, or on edge?Several days, N ot being able to stop or control worrying N ot at all, W orrying too much about different things N ot at all, T rouble relaxing N ot at all, B eing so restless that it is hard to sit still N ot at all, B ecoming easily annoyed or irritable?Not at all, F eeling afraid as if something awful might happen N ot at all, T otal NICK-7 Score 1 , I f you checked any problems, how difficult have they made it for you to do your work, take care of things at home, or get along with other people? N ot difficult at all, I nterpretation of Total ( 0 to 4) No Anxiety. D epression screening: PHQ-9 L ittle interest or pleasure in doing things N ot at all, F eeling down, depressed, or hopeless N ot at all, T rouble falling or staying asleep, or sleeping too much N ot at all, F eeling tired or having little energy S ever, P oor appetite or overeating N ot at all, F eeling bad about yourself or that you are a failure, or have let yourself or your family down N ot at all, T rouble concentrating on things, such as reading the newspaper or watching television S , M oving or speaking so slowly that other people could have noticed; or the opposite, being so fidgety or restless that you have been moving around a lot more than usual N ot at all, T houghts that you would be better off or of hurting yourself in some way N ot at all, T otal Score 2 , Interpretation M inimal Depression. I ntervention D epression Screening Findings?Negative. 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 * Medical History: P papi: Bereavement, Body mass index 30+ - obesity, Chronic obstructive lung disease, Generalized anxiety disorder, Metabolic syndrome X, Minimal cognitive impairment, Persistent insomnia, Primary insomnia, Schizoaffective disorder, bipolar type, ,. * Surgical History: D nacho Past Surgical History. * Hospitalization/Major Diagno stic Procedure: c hest pains 02/15/2024. * Social History: T obacco Use: T obacco Control (Standard) T obacco use: F ormer smoker, W hen did you stop smoking? 0 05/17/1997. M igrated Social History: M igrated Social History: Alcohol Intake: None 2018,Tobacco Years: Former smoker 02/11/2023. * Medications: T aking Ergocalciferol 1.25 MG (55392 UT) Capsule Oral , Taking Tamsulosin HCl [...] Onset Date 06/23/2023. Objective: * Vitals: B P:128/82mm Hg, HR:85/min, Wt:207lbs, Wt-k.89 kg, Ht: 64.02 in, Ht-cm: 162.61 cm, BMI:35.51Index, Body Surface Area: 2.06. * Examination: F unctional Assessment: Venegas Index of ADL S core: 6 1 point for independence, 0 for help. Physical Functioning P ersonal hygiene: including combing hair, brushing teeth, shaving, applying makeup, washing/drying face and hands (exclude baths and showers) I ndependent (1)Bathing: how client takes full-body bath/shower or sponge bath (exclude washing of back and hair). Includes how each part of body is bathed: arms, upper and lower legs, chest, abdomen, perineal area. (code for most dependent episode in last 7 days) I ndependent (1)Dressing upper body: how client dresses and undresses (street clothes, underwear) above the waist, includes prostheses, orthotics, fasteners, pullovers, etc. I ndependent (1)Dressing lower body: how client dresses and undresses (street clothes, underwear), from the waist down, includes prostheses, orthotics, belts, pants, skirts, shoes, and fasteners I ndependent (1)Eating - Including taking in food by any method, including tube feedings I ndependent (1)Toilet use: including using the toilet room or commode, bedpan, urinal, transferring on/off toilet, cleaning self after toilet use or incontinent episode, changing pad, managing any special devices required (ostomy or catheter), and adjusting clothes. I ndependent (1)Transfer: including moving to and between surfaces--to/from bed, chair, wheelchair, standing position (excludes to/from bath/toilet) I ndependent (1)Transportation N o difficultyContinence: I ndependent (1). 1 point for independence, 0 for help. N eurology: Cognition Assessment Tools Used T otal score SLUMS 2 3Total score MMSE 3 0. 2 06/17 SLUMS MMSE. M ini Mental Status Exam: Orientation: W hat is the (year), (season), (date), (day), (month)? 02/23/2024, fall,--07/23 Where are we (state), (county), (town), (hospital), (floor)? 07/23. Registration: N hortencia 3 objects: clock piano orange 05/21. Attention: s norma WORLD-DLROW 07/23. Recall: p iano, clock, orange 05/21, score: 3 out of 3. Language: s core: 9 out of 9. Total score (Cognitive impairment <=20): 3 . ? P sychiatry: Dementia S afety concern screening for dangerousness to self and environment risks provided: Y esWhat action was taken to mitigate the risk? E ducation providedTopics discussed for environmental risks: H ome safety risks that could arise from cooking or smoking, Access to firearms or other weapons, Access to potentially dangerous chemicals and other materialsTopics discussed for dangerousness to self: M edication misuse, Financial mismanagementSafety concern mitigation recommendation provided: N ot requiredScreening Result: N egativeCaregiver education and support provided Y es. Appearance: w ell-groomed, well-nourished, appears older, obese. Affect / mood: a ppropriate, full range. [...] . G eneralized anxiety disorder - F41.1 Plan: * Treatment: 2. O thers Notes: referral to the [facility] office of the Alzheimer's Association ( ;http://www.alz.org), the [facility]erral [facility] ([facility]) ( ;http://www.al.nih.gov/Alzh daniela/), * Procedure Codes: 9 6127 BEHAV ASSMT W/SCORE & DOCD/STAND INSTRUMENT, G9717 Doc pt dx dep/bp f/u [place] req, [address] PSYCHOTHERAPY W/PATIENT W/E&M SRVCS 30 MIN, G9903 Pt scrn tbco id as non user * Follow Up: 2 Months (Reason: schizoaffective d/o, nick) * Billing Information: * Visit Code: 22843 OFFICE OUTPATIENT VISIT 25 MINUTES DETAILED HISTORY AND EXAM/MODERATE MEDICAL DECISION MAKING. * Procedure Codes: 32451 BEHAV ASSMT W/SCORE & DOCD/STAND INSTRUMENT. G9717 Doc pt dx dep/bp [place] req. [address]851 PSYCHOTHERAPY W/PATIENT W/E&M SRVCS 30 MIN. G9903 Pt scrn tbco id as non user. * T ROLLER COVERMAKER Sign off status: Completed true * Provider: Haley MUNOZ MD Date: 04/25/2023 Generated for Og lopez/Ac/Robertitting on: 0 05/29/2024 12:39 PM CDT History and Physical Notes * [...] Depression Screening Findings: N egative Depression Screening NICK-7 (2018 Edition) Feelin g nervous, anxious, or [...] happen: Not at all Total NICK-7 Score: 1 If you checked any problems, [...] (hospital), (floor)? 07/23 Registration: Name 3 objects: milagros chou 05/21 Attention: katiuska ALDRIDGE 07/23 Recall: piano, clock, orange /, score: 3 out of 3 Language: score: [...] to self and environment risks provided:: Yes What action was taken to mitigate the risk?: Education provided Topics discussed for environmental risks:: Home safety risks that could arise from cooking or smoking, Access to firearms or other weapons, Access to potentially dangerous chemicals and other materials Topics discussed for dangerousness to self:: Medication misuse, Financial mismanagement Safety concern mitigation recommendation provided:: Not required Screening Result:: Negative Caregiver education and support provided [...]
--- OUTSIDE RECORDS SUMMARY | 2024-05-29 12:40 | XMS_ITS ---
Author Organization [facility] [employer] Address [facility] [facility] [address] [facility] [address] [place] [address] Care Team Providers Care Freight Flagman Name Role Phone Nguyen Mccabe DO Primary Care Provider Kellie Lopez Unavailable [phone] Gerard Corral Unavailable [phone] REASON FOR VISIT DULoxetine Medications Medication SIG [...] Female Encounters Encounter Location Date Provider Diagnosis [facility] [place] [address] [facility] [address] [facility] [address] [place] [address] 03/30/2024 eGrard Corral Schizoaffective disorder, bipolar type F25.0 Assessments [...] Details Provider Name:Kellie francisco, 06/22/2024 09:45:00 AM, [address], [address], [place], [address], Progress Notes * SUKUMAR MOSS ADOB:1944 (79 yo F)Acc No.[id number]:03/30/2024 Patient: SUKUMAR ROBBINS :1945 A ge:79 Y S ex:Female Address:[address] [place] [address] * Refills Refill DULoxetine HCl Capsule Delayed [...] Date: Generated for Og lopez/Ac/Robertitting on: 0 05/29/2024 12:39 PM CDT
== END 2024-05-29 10:56 | disposition home or self-care (01) ==
PROVIDERS: PCP Family Medicine; Visit Provider Family Medicine
DX: R93.89 Abnormal findings on diagnostic imaging of other specified body structures (principal)
CPT/HCPCS: 71046

== ENCOUNTER 2024-06-14 10:47 | Outpatient (CLI) | payer MEDICARE, SELFPAY ==
--- NOTE | ~2024-06-14 | DEXA_ITS ---
Bone Density Report Name: SUKUMAR MOSS Age: 79 Sex: Female Ethnicity: White Date of : 1945 Indication: postmenopausal; screening for osteoporosis; height loss; prior fracture; asthma or emphysema; Referring Provider: PURNIMA BASHIR Study: Bone densitometry was performed. Exam Date: June 14, 2024 Accession number: [id number] Bone Density: Region BMD T-score Z-score Classification Femoral Neck (Left) 0.615 -2.1 0.2 Osteopenia Total Hip (Left) 0.915 -0.2 1.9 Normal Femoral Neck (Right) 0.689 -1.4 0.9 Osteopenia Total Hip (Right) 0.893 -0.4 1.7 Normal Total Hip Mean 0.904 -0.3 1.8 Normal World Health Organization criteria for BMD impression classify patients as: Normal (T-score at or above -1.0), Osteopenia (T-score between -1.0 and -2.5), or Osteoporosis (T-score at or below -2.5). 10-year Fracture Risk: FRAX not reported because: Prior hip or vertebral fracture Clinical Information Provided by Patient: Have had a previous hip or vertebral fracture Has had a low trauma fracture Has used the following medications: Vitamin D, Calcium Has the following medical conditions: Asthma or Emphysema Patient maximum height was 64 Menopause Age: 43 No regular weight bearing exercise Does not regularly consume dairy products Drinks caffeinated beverages Onset of menses at age 11 Number of children 0 Impression: The patient has low bone mass, based on the Left Femoral Neck T-score. The patient has risk factors, including: previous fracture. Discussion: INCREASED RISK OF FRACTURE DUE TO HISTORY OF FRACTURE. The patient's previous fracture puts the patient at high risk of a future fracture. In untreated patients, the risk of osteoporotic fracture increases approximately two-fold for each 1.0 SD decrease in T-score. Low bone density is not the only risk factor for fracture; also consider factors such as patient's age, frailty or poor health, risk of falling, risk of injury, previous osteoporotic fracture, family history of osteoporosis, cigarette smoking, low body weight, etc. Not everyone with a low trauma fracture has osteoporosis; osteomalacia and other metabolic bone disorders should also be considered. Patients who have osteoporosis should be evaluated for specific diseases and conditions (secondary causes) that may cause or contribute to bone loss and fracture risk. National Osteoporosis Foundation (NOF) recommends pharmacologic intervention for patients with a prior hip or vertebral fracture regardless of BMD T-score. The patient should follow a healthful lifestyle (good nutrition with adequate calcium and vitamin D, and appropriate weight-bearing exercise). Follow-Up: Consider a repeat BMD and Vertebral Fracture Assessment (VFA) exam in 2 years or sooner if medically necessary, to reassess this patient's status. Reported by: MATTHEW on 06/14/2024 11:42:00 AM. Reviewed, dictated and finalized at location [facility]
--- OUTSIDE RECORDS SUMMARY | 2024-06-14 11:56 | XMS_ITS | Encounter Summary ---
Author Organization [employer] Address 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
--- OUTSIDE RECORDS SUMMARY | 2024-06-14 11:56 | XMS_ITS | Clinical Summary ---
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
--- OUTSIDE RECORDS SUMMARY | 2024-06-14 11:56 | XMS_ITS | Encounter Summary ---
Author Organization [employer] Address 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
--- OUTSIDE RECORDS SUMMARY | 2024-06-14 11:56 | XMS_ITS | Clinical Summary ---
Author Organization [facility] Address [address] [place] [address] Care Team Providers Care Clinical Operations Manager Name Role Phone Unavailable Primary Care [...] Documents on File Type Date Recorded Patient Pump Rebuilder Expl 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
--- OUTSIDE RECORDS SUMMARY | 2024-06-14 11:57 | XMS_ITS ---
Author Organization [facility] [employer] Address [address] [place] [address] Care Team Providers Care Senior Quality Assurance Analyst Name Role Phone Nguyen Mccabe DO Primary Care Provider Kellie Lopez [phone] Medications Medication SIG (Take, Route, Fr equency, Duration) Notes Start Date End Date Status DULoxetine HCl 30 MG 1 capsule Oral Once a day for 90 days Active Social History Sex Assigned At : Social History Observation Description Sex Assigned At Female Encounters Encounter Location Date Provider Diagnosis [facility] [employer] [facility] [address] [place] [address] 05/30/2024 Kellie Cardoso Schizoaffective disorder, bipolar type F25.0 Assessments Encounter Date Diagnosis (ICD Code) Assessment Notes Treatment Notes Treatment Clinical Notes Section Notes 05/30/2024 Schizoaffective disorder, bipolar type (ICD-10 - F25.0) Plan Of Treatment Medication Medication Name Sig Start Date Stop Date Notes DULoxetine HCl 30 MG 1 capsule Oral Once a day for 90 days Next Appt Details Provider Name:Kellie francisco, 06/22/2024 09:45:00 AM, [address], [address], [place], [address], Progress Notes * SUKUMAR MOSS ADOB:1944 (79 yo F)Acc No.[id number]:05/30/2024 Patient: Jacek SUKUMAR JOHNSON :1945 A ge:79 Y S ex:Female Address:[address] [place] [address], [address] * Refills Refill DULoxetine HCl Capsule Delayed Release Particles, 30 MG, Oral, 90 Capsule, 1 capsule, Once a day, 90 days, Refills=0 * true * Date: Generated for Og lopez/Ac/Eran on: 0 06/14/2024 11:57 AM CDT
--- OUTSIDE RECORDS SUMMARY | 2024-06-14 11:57 | XMS_ITS ---
Author Organization [facility] [employer] Address [address] [place] [address] Care Team Providers Care Group Home Worker Name Role Phone Nguyen Mccabe DO Primary Care Provider UnavailKellie Fisher Unavailable [phone] Gerard Munoz Unavailable [phone] Allergies Allergen (clinical drug ingredient) Drug/Non Drug [...] MG Oral 06/23/2023 Active Ergocalciferol 1.25 MG (72901 UT) Oral 06/23/2023 Active Tamsulosin HCl 0.4 [...] Status Risk Notes Problem Generalized anxiety disorder (01196354) Generalized anxiety disorder (F41.1) Active confirmed Problem Insomnia (405949585) Other insomnia (G47.09) Active confirmed Vital Signs Blood pressure systolic 123 mm Hg 04/26/19 25 Blood pressure diastolic 78 mm Hg 025 Heart Rate 74 /min 04/26/2024 Height 64.02 in 04/26/2024 Weight 206 lbs 04/26/2024 BMI 35.33 kg/m2 04/26/2024 Height-cm 162.61 cm 04/26/2024 Weight-kg 93.44 kg 04/26/2024 Encounters Encounter Location Date Provider Diagnosis [facility] [address] [place] [address] 04/26/2024 Gerard Munoz Schizoaffective disorder, bipolar type [...] d/o,nick,insomnia Provider Name:Kellie francisco, 06/22/2024 09:45:00 AM, [address], [address], [place], [address], Progress Notes * SUKUMAR MOSS ADOB:1944 (79 yo F)Acc No.[id number]:04/26/2024 Patient: SUKUMAR ROBBINS Provider: Haley MUNOZ MD :1945 A ge:79 Y S ex:Female Date:04/26/2024 Address:[address] [place] [address], [facility] Pcp:Nguyen Mccabe DO Subjective: * Chief [...] for adult depression screening: [facility] ([facility]-9). P sychotherapy with Med [...] well taken care of at [facility]. E lderly Maltreatment: Screening Questions P hysical [...] * Medications: T aking Ergocalciferol 1.25 MG (84315 UT) Capsule Oral , Taking Tamsulosin HCl [...] DOC ELDER MALTX SCR&DOC PLAN TM SCR, 18159 BEHAV ASSMT W/SCORE & DOCD/STAND INSTRUMENT, G8783 NORMAL BP READING DOC F/U NOT RQR, G8734 ELDER MALTX SCR DOC NEG NO F/U RQR, 45115 PSYCHOTHERAPY W/PATIENT W/E&M SRVCS 30 MIN, G8752 MOST RECENT SYSTOLIC BP < 140MM HG, G8754 MOST RECENT DIASTOLIC BP < 90MM HG, G8734 ELDER MALTX SCR DOC NEG NO F/U RQR * Follow Up: 2 Months (Reason: schizoaffective d/o,nick,insomnia) * Billing Information: * Visit Code: 62266 OFFICE OUTPATIENT VISIT 25 MINUTES DETAILED HISTORY AND EXAM/MODERATE MEDICAL DECISION MAKING. * Procedure Codes: G8733 DOC ELDER MALTX SCR&DOC PLAN TM SCR. 40589 BEHAV ASSMT W/SCORE & DOCD/STAND INSTRUMENT. G8783 NORMAL BP READING DOC F/U NOT RQR. G8734 ELDER MALTX SCR DOC NEG NO F/U RQR. 41793 PSYCHOTHERAPY W/PATIENT W/E&M SRVCS 30 MIN. G8752 MOST RECENT SYSTOLIC BP < 140MM HG. G8754 MOST RECENT DIASTOLIC BP < 90MM HG. G8734 ELDER MALTX SCR DOC NEG NO F/U RQR. * IMPLEMENT ENGINE MECHANIC Sign off status: Completed true * Provider: Haley MUNOZ MD Date: 0 04/26/2024 Generated for Og lopez/Ac/eTransmitting on: 0 06/14/2024 11:57 AM CDT History and Physical Notes * HPI [...] Screening Findings: P ositve Follow-Up for Depression: [facility] treatment assessment, Patient follow-up to return [...] well taken care of at [facility] Depression Screening NICK-7 (2018 Edition) Feeling nervous, [...] all Feeling afraid as if something awful hcristine ht happen: Not at all Total NICK-7 [...]
--- OUTSIDE RECORDS SUMMARY | 2024-06-14 11:57 | XMS_ITS | Clinical Summary ---
Author Organization [facility] Address [address], [address] [address] Phone Care Team Providers Care Correspondence Specialist Name Role Phone Wing Carrasco MD Primary Care Provider + Shirin Renner MD Unavailable [phone] Sonu Fernandez DO Unavailable [phone] Allergies Active Allergy Reactions Criticality Noted [...] Take 400 Units by mouth daily. Active [place]-3 Fatty Acids (OMEGA-3 FISH OIL) 1000 MG [...] Covid-19 Vaccine, Vector-nr, Rs-ad26, Pf, 0.5 Ml ([employer]) 05/26/2020 Family History Medical History Relation Name [...] Health Maintenance Due Date Last Done Comments Hepatitis C Virus (HCV) Screening 1945 TdaP [...] age to complete this topic Care Teams Correspondence Specialist Relationship Specialty Start Date End Date Wing Carrasco MD [address] [place] [address] PCP - General Family Medicine 02/09/16 Shirin Renner MD [address] [facility] [address] [place] [address] Internal Medicine 02/11/16 Sonu Fernandez DO [address] [facility] [address] [place] [address] Gastroenterology 02/11/16
--- OUTSIDE RECORDS SUMMARY | 2024-06-14 11:57 | XMS_ITS | Referral Summary ---
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 Gender Identity Not on file Sexual Orientation Not on file Last Filed Vital Signs Vital Sign Reading Time Taken Comments Blood Pressure 121/68 07/23/2016 8:08 AM CDT Pulse 52 07/23/2016 8:08 AM CDT Temperature - - Respiratory Rate - - Oxygen Saturation 98% 07/23/2016 8:06 AM CDT Inhaled Oxygen Concentration - - Weight 65.3 kg (144 lb) 02/08/2018 10:16 AM PRINT AND PATTERN DESIGNER Height 157.5 cm (5' 2 ) 02/08/2018 10:16 AM PRINT AND PATTERN DESIGNER Body Mass Index 26.34 02/08/2018 10:16 AM PRINT AND PATTERN DESIGNER Plan of Treatment Not on file Insurance [facility] MEDICARE ADVANTAGE [facility] [address] Care Teams Barrel Assembler Helper Relationship Specialty Start Date End Date Wing Carrasco MD [address] [place] [address] PCP - General 12/12/15
--- OUTSIDE RECORDS SUMMARY | 2024-06-14 11:57 | XMS_ITS | Clinical Summary ---
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 Gender Identity Not on file Sexual Orientation Not on file Obstetrics History Last Filed Vital Signs Vital Sign Reading Time Taken Comments Blood Pressure 121/68 07/23/2016 8:08 AM CDT Pulse 52 07/23/2016 8:08 AM CDT Temperature - - Respiratory Rate - - Oxygen Saturation 98% 07/23/2016 8:06 AM CDT Inhaled Oxygen Concentration - - Weight 65.3 kg (144 lb) 02/08/2018 10:16 AM GOLF COURSE RANGER Height 157.5 cm (5' 2 ) 02/08/2018 10:16 AM GOLF COURSE RANGER Body Mass Index 26.34 02/08/2018 10:16 AM GOLF COURSE RANGER Plan of Treatment Not on file Insurance [facility] MEDICARE ADVANTAGE [facility] Address: [facility] [address] [place] [address] [facility] MEDICARE ADVANTAGE [facility] Address: [address] [address] Care Teams Upper Inspector Relationship Specialty Start Date End Date Wing Carrasco MD [address] [place] [address] PCP - General 12/12/15
--- OUTSIDE RECORDS SUMMARY | 2024-06-14 11:58 | XMS_ITS ---
Author Organization [facility] [employer] Address [facility] [facility] [address] [facility] [address] [place] [address] Care Team Providers Care Customer Solutions Teammate Name Role Phone Nguyen Mccabe DO Primary Care Provider Kellie Lopez Unavailable [phone] Gerard Corral Unavailable [phone] REASON FOR VISIT DULoxetine Medications Medication SIG [...] Encounters Encounter Location Date Provider Diagnosis [facility] [employer] [place] [address] [facility] [address] [facility] [address] [place] [address] 03/30/2024 Gerard Corral Schizoaffective disorder, bipolar type [...] Details Provider Name:Kellie francisco, 06/22/2024 09:45:00 AM, [address], [address], [place], [address], Progress Notes * SUKUMAR MOSS ADOB:1944 (79 yo F)Acc No.[id number]:03/30/2024 Patient: SUKUMAR ROBBINS :1945 A ge:79 Y S ex:Female Address:[address] [place] [address] * Refills Refill DULoxetine HCl Capsule Delayed [...] Date: Generated for Og lopez/Ac/Robertitting on: 0 06/14/2024 11:57 AM CDT
== END 2024-06-14 10:48 | disposition home or self-care (01) ==
PROVIDERS: PCP Family Medicine; Visit Provider Family Medicine
DX: Z78.0 Asymptomatic menopausal state (principal); M85.852 Other specified disorders of bone density and structure, left thigh; M85.851 Other specified disorders of bone density and structure, right thigh
CPT/HCPCS: 77080

== ENCOUNTER 2024-09-05 13:40 | Outpatient (CLI) | payer MEDICARE, SELFPAY ==
--- NOTE | ~2024-09-05 | XR_ITS ---
Right Knee Technique: AP, lateral, and sunrise views were obtained. Clinical History: Pain Findings: No fracture or dislocation is seen. Osseous alignment is anatomic. There is mild tricompart mental degenerative joint disease. Soft tissues are unremarkable. No joint effusion is seen. Impression: Mild tricompartmental degenerative change. Reviewed, dictated and finalized at [facility]. Impression: Mild tricompartmental degenerative change.
== END 2024-09-05 13:41 | disposition home or self-care (01) ==
LOC: GOSHIMG 13:40
PROVIDERS: PCP Chiropractor; Visit Provider Family Medicine
DX: M17.11 Unilateral primary osteoarthritis, right knee (principal)
CPT/HCPCS: 73564

== ENCOUNTER 2024-09-14 10:00 | Outpatient (CLI) | payer MEDICARE, SELFPAY ==
--- NOTE | ~2024-09-14 | MR_ITS ---
MRI of the right knee Clinical history: Pain Technique: Coronal proton density and proton density-weighted images, sagittal proton-density and T2 fat-sat images, and axial proton-density fat-saturated images were acquired. Findings: Anterior and posterior cruciate ligaments are intact. Medial collateral ligament and the la teral collateral ligament complex are intact. Popliteus tendon intact. Probable radial tear at the posterior root of the medial meniscus. No lateral meniscal tear evident. 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 There is extensive high-grade chondromalacia of the femoral trochlea. There is high-grade chondromalacia at the medial joint line. Small tricompartm ental osteophyte are present. There is probable low grade partial tearing of the distal quadriceps tendon at its patellar insertion , involving the posterior fibers. Patellar tendon intact. Minimal joint effusion. No Weston's cyst. Impression: Radial tear at the posterior root of the medial meniscus. Probable low-grade partial tearing of the distal quadriceps tendon posteriorly at its patellar insert ion. Advanced degenerative change of the patellofemoral compartment. Moderate degenerative change of the m edial compartment. Mild degenerative change of the lateral compartment. Reviewed, dictated and finalized at location M. Impression: Radial tear at the posterior root of the medial meniscus. Probable low-grade partial tearing of the distal quadriceps tendon posteriorly at its patellar insertion. Advanced degenerative change of the patellofemoral compartment. Moderate degene rative change of the medial compartment. Mild degenerative change of the latera l compartment.
== END 2024-09-14 10:01 | disposition home or self-care (01) ==
LOC: GOSHIMG 10:01
PROVIDERS: PCP Chiropractor; Visit Provider Family Medicine
DX: S83.241A Other tear of medial meniscus, current injury, right knee, initial encounter (principal); M17.11 Unilateral primary osteoarthritis, right knee; X58.XXXA Exposure to other specified factors, initial encounter
CPT/HCPCS: 73721

== ENCOUNTER 2024-10-05 21:39 | Emergency (ER) | payer MEDICARE, SELFPAY ==
--- OUTSIDE RECORDS SUMMARY | 2024-10-05 21:41 | XMS_ITS | Clinical Summary ---
Author Organization [facility] Address [address] [place] [address] Care Team Providers Care Grain Broker And Market Operator Name Role Phone Unavailable Primary Care [...] Td Vaccines ( 1 - Tdap) 1962 Pneumococcal Vaccine: 50+ Ye ars (1 of 1 - PCV) 1993 Zoster Vaccines (1 of 2) 1993 Dexa Scan (General) 2008 RSV Immunization or 60+ Years (1 - 1-dose 75+ series) 2018 COVID-19 Vaccine ( - 2023-2 5 season) 2023 Meningococcal B Vaccine Aged Out No l onger eligible based on patient's age to complete this topic Meningococcal Vaccine Aged Out No mic javier eligible based on patient's age to complete this topic RSV Immunizations Under 20 Months Aged Out No longer eligible based on patient's age to complete this topic Advance Directives Documents on File Type Date Recorded 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
--- OUTSIDE RECORDS SUMMARY | 2024-10-05 21:41 | XMS_ITS | Encounter Summary ---
Author Organization [facility] Address [address] [place] [address] Care Team Providers Care Numerical Control Router Operator Name Role Phone Unavailable Primary Care Provider Unavailabl e Encounter Details Date Type Department Care Team (Late st Contact Info) Description 06/10/2003 Outpatient Historical [facility] [address] [place] [address] Mark Anthony Acosta DO NO ADDRESS ON FILE Social History Tobacco Use Types Packs/Day Years Used Date Smoking Tobacco: Never Assessed Comments Unknown Sex and Gender Information Value Date Recorded Sex Assigned at Not on file Legal Sex Female 3:18 AM LEAD 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
--- OUTSIDE RECORDS SUMMARY | 2024-10-05 21:41 | XMS_ITS | Clinical Summary ---
Author Organization [facility] Address [address] [place] [address] Care Team Providers Care Glass Furnace Tender Name Role Phone Wing Carrasco MD Primary [...] on file Legal Sex Female 12:19 AM DINING CAR SERVER Gender Identity Not on file Sexual Orientation Not on file Obstetrics History Last Filed Vital Signs Vital Sign Reading Time Taken Comments Blood Pressure 121/68 07/23/2016 8:08 AM CDT Pulse 52 07/23/2016 8:08 AM CDT Temperature - - Respiratory Rate - - Oxygen Saturation 98% 07/23/2016 8:06 AM CDT Inhaled Oxygen Concentration - - Weight 65.3 kg (144 lb) 02/08/2018 10:16 AM DINING CAR SERVER Height 157.5 cm (5' 2) 02/08/2018 10:16 AM DINING CAR SERVER Body Mass Index 26.34 02/08/2018 10:16 AM DINING CAR SERVER Plan of Treatment Not on file Insurance [facility] MEDICARE ADVANTAGE [facility] MEDICARE ADVANTAGE Care Teams Glass Furnace Tender Relationship Specialty Start Date End Date Wing Carrasco MD [address] [place] [address] PCP - General 12/12/15
--- OUTSIDE RECORDS SUMMARY | 2024-10-05 21:41 | XMS_ITS | Clinical Summary ---
Author Organization [facility] Address [address] [place], [address] [address] Phone Care Team Providers Care Pecan Huller Name Role Phone Wing Carrasco MD Primary Care Provider + Shirin Renner MD Unavailable [phone] Sonu Fernandez DO Unavailable [phone] Allergies Active Allergy Reactions Criticality Noted Date [...] Take 400 Units by mouth daily. Active Essie-3 Fatty Acids (OMEGA-3 FISH OIL) 1000 MG [...] Covid-19 Vaccine, Vector-nr, Rs-ad26, Pf, 0.5 Ml (Campus Explorer/J&Review Trackers) 05/26/2020 Family History Medical History Relation Name [...] 2:20 PM CDT Height 157.5 cm (5' 2) 08/09/2017 2:20 PM CDT Body Mass Index 33.84 08/09/2017 2:20 PM CDT Plan of Treatment Health Maintenance Due Date Last Done Comments Hepatitis C Virus (HCV) Screening 1945 TdaP Immunization 1945 Zoster Immunization (1 of 2) 1993 Pneumococcal Immunization (5 0+ years) (2 of 2 - PPSV23) 04/09/2017 04/09/2016 Respiratory Syncytial Virus (RSV) Immunization (Adult) (1 - 1-dose 75+ series) 2018 SARS-COV-2 Immunization (3 - season) 2023 02/05/2021, 05/26/2020 Influenza Immunization (#1) 2024 12/26/2014 Pneumococcal Immunization Combined Discontinued 04/09/2016 Hepatitis B Immunization Aged Out No longer eligible based on patient's age to complete this topic Human Papillomavirus (HPV) Immunization Aged Out No longer eligible based on patient's age to complete this topic Meningococcal Immunization (ACWY) Aged Out No longer eligible based on patient's age to complete this topic Rotavirus Immunization Aged Out No lo nger eligible based on patient's age to complete this topic Care Teams Pecan Huller Relationship Specialty Start Date End Date Wing Carrasco MD PCP - General Family Medicine 02/09/16 Shirin Renner MD [address] [facility] [address] [place] [address] Internal Medicine 02/11/16 Sonu Fernandez DO [address] [facility] [address] [place] [address] Gastroenterology 02/11/16
--- OUTSIDE RECORDS SUMMARY | 2024-10-05 21:41 | XMS_ITS | Referral Summary ---
Author Organization [facility] Address [address] [place] [address] Care Team Providers Care Stockroom Clerk Name Role Phone Wing Carrasco MD Primary [...] on file Legal Sex Female 12:19 AM RESEARCH ADVISOR Gender Identity Not on file Sexual Orientation Not on file Last Filed Vital Signs Vital Sign Reading Time Taken Comments Blood Pressure 121/68 07/23/2016 8:08 AM CDT Pulse 52 07/23/2016 8:08 AM CDT Temperature - - Respiratory Rate - - Oxygen Saturation 98% 07/23/2016 8:06 AM CDT Inhaled Oxygen Concentration - - Weight 65.3 kg (144 lb) 02/08/2018 10:16 AM RESEARCH ADVISOR Height 157.5 cm (5' 2) 02/08/2018 10:16 AM RESEARCH ADVISOR Body Mass Index 26.34 02/08/2018 10:16 AM RESEARCH ADVISOR Plan of Treatment Not on file Insurance [facility] MEDICARE ADVANTAGE [facility] MEDICARE ADVANTAGE Care Teams Stockroom Clerk Relationship Specialty Start Date End Date Wing Carrasco MD [address] [place] [address] PCP - General 12/12/15
--- OUTSIDE RECORDS SUMMARY | 2024-10-05 21:41 | XMS_ITS | Clinical Summary ---
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
--- OUTSIDE RECORDS SUMMARY | 2024-10-05 21:41 | XMS_ITS | Encounter Summary ---
Author Organization [facility] Address [address] [place] [address] Care Team Providers Care Life Skills Worker Name Role Phone Unavailable Primary Care Provider Unavailabl e Encounter Details Date Type Department Care Team (Late st Contact Info) Description 06/24/2003 Outpatient Historical [facility] [address] [place] [address] Mark Anthony Acosta DO NO ADDRESS ON FILE Social History Tobacco Use Types Packs/Day Years Used Date Smoking Tobacco: Never Assessed Comments Unknown Sex and Gender Information Value Date Recorded Sex Assigned at Not on file Legal Sex Female 3:18 AM BAKERY WORKER CONVEYOR LINE Gender Identity Not on file Sexual Orientation Not on file documented as of this encounter Plan of Treatment Not on file documented as of this encounter Visit Diagnoses Not on filedocumented in this encounter
[2024-10-05 21:49] VITALS: BP 122/65; PULSE 75; RESP 16; TEMP 36.5; O2SAT 99
[2024-10-06 00:16] LABS: Add Urine Microscopic? NO; Appearance Urine Clear (Clear); Glucose Urine UA Negative (Negative); Leukocyte Esterase Ur Negative LEU/UL (Negative); Nitrate Urine Negative (Negative); Specific Grav Ur 1.013 (1.001-1.035)
[2024-10-06 00:47] VITALS: BP 127/76; PULSE 67; RESP 18; TEMP 36.8; O2SAT 97
[2024-10-06 00:48] VITALS: BP 127/76; PULSE 87; RESP 18; O2SAT 97
[2024-10-06 01:18] LABS: Hematocrit 39.4 % (37.0-47.0); Hemoglobin 13.3 g/dL (12.0-15.0); Immature Granulocyte Percent A 0.4 % (0-0.5); Lymphocytes Absolute Auto 2.56 K/mm3 (0.9-3.2); Mean Corpuscular HGB Conc 33.8 g/dl (32-36); Mean Corpuscular Hemoglobin 29.4 pg (26-34); Mean Corpuscular Volume 87.2 fl (80-100); Nucleated Red Blood Cells Absolute Auto 0.000 K/mm3 (0.0-0.012); Nucleated Red Blood Cells Perc 0.0 % (0.0-0.2); Platelet Count Result 153 k/mm3 (150-375); Red Blood Count 4.52 M/mm3 (4.2-5.4); White Blood Count 10.3 K/mm3 (4.5-10.0)
[2024-10-06 01:43] LABS: Alanine Aminotransferase 25 U/L (6-35); Albumin Level 4.1 g/dL (3.5-5.1); Alkaline Phosphatase 79 U/L (38-126); Anion Gap 9 mmol/L (4-12); Aspartate Amino Transferase 29 U/L (14-36); Bilirubin,Total 0.4 mg/dL (0.2-1.3); Blood Urea Nitrogen 17 mg/dL (7-17); Calcium 9.4 mg/dL (8.4-10.2); Carbon Dioxide 25 mmol/L (22-30); Chloride 103 mmol/L (98-107); Estimated CRCL calculation 50 ml/min; Estimated Glomerular Filt Rate > 60; Glucose 120 mg/dL (65-110); Potassium 3.9 mmol/L (3.4-5.0); Sodium 137 mmol/L (137-145); Total Protein 6.8 g/dL (6.3-8.2)
--- OUTSIDE RECORDS SUMMARY | 2024-10-06 01:47 | XMS_ITS | Encounter Summary ---
Author Organization [facility] Address [address] [place] [address] Care Team Providers Care Creative Developer Name Role Phone Unavailable Primary Care Provider Unavailabl e Encounter Details Date Type Department Care Team (Late st Contact Info) Description 06/10/2003 Outpatient Historical [facility] [address] [place] [address] Mark Anthony Acosta DO NO ADDRESS ON FILE Social History Tobacco Use Types Packs/Day Years Used Date Smoking Tobacco: Never Assessed Comments Unknown Sex and Gender Information Value Date Recorded Sex Assigned at Not on file Legal Sex Female 3:18 AM DIGITAL PHOTOGRAPHIC PRINTER Gender Identity Not on file Sexual Orientation Not on file documented as of this encounter Plan of Treatment Not on file documented as of this encounter Visit Diagnoses Not on filedocumented in this encounter
--- OUTSIDE RECORDS SUMMARY | 2024-10-06 01:47 | XMS_ITS | Clinical Summary ---
Author Organization [facility] Address [address] [facility] Attn: Epic Prelude ADT [employer] [address] Care Team Providers Care Telecommunications Support Name Role Phone Unavailable Primary Care Provider Unavailabl e Social History Tobacco Use Types Packs/Day Years Used Date Smoking Tobacco: Never Assessed Comments Unknown Sex and Gender Information Value Date Recorded Sex Assigned at Not on file Legal Sex Female 3:18 AM SPIKE MACHINE OPERATOR Gender Identity Not on file Sexual [...]
--- OUTSIDE RECORDS SUMMARY | 2024-10-06 01:47 | XMS_ITS ---
Author Organization [facility] As Status Overload Address [address] [place] [address] Care Team Providers Care Fan Mail Clerk Name Role Phone Nguyen Mccabe DO Primary Care Provider Kellie Lopez Unavailable [phone] Allergies Allergen (clinical drug ingredient) Drug/Non Drug Allergy documented on EMR Reaction Allergy Type Onset Date Status clonazepam clonazePAM Unknown Drug Allergy 06/23/2023 Acti ve predniSONE Unknown Drug Allergy 06/23/2023 Activ e diphenhydramine Diphenhydramine Unknown Drug Allergy 06/22 Active REASON FOR VISIT 1 month f/u Medications Medication SIG (Take, Route, Frequency, Duration) Notes Start Date End Date Status Ergocalciferol 1.25 MG (37450 UT) Oral 06/23/2023 Active traZODone HCl 100 MG 1 tablet at bedtime Oral Once a day; Duration: 90 days As needed Active Pantoprazole Sodium 40 MG Oral 06/23/2023 Active Levothyroxine Sodium 50 MCG Oral 06/23/2023 Active Tamsulosin HCl 0.4 MG Oral 06/23/2023 Active Austedo XR 24 MG 1 tablet Orally Once a day; Duration: 30 day(s) 10/06/2024 11/05/2024 Active OLANZapine 10 MG 1 tablet Oral Once a day Active buPROPion HCl ER (XL) 150 MG TAKE 1 TABLET BY MOUTH IN THE MORNING ONCE DAILY Active DULoxetine HCl 30 MG 1 capsule Oral daily Active DULoxetine HCl 20 MG TAKE 1 CAPSULE BY MOUTH ONCE DAILY TOTAL DOSE 50 MG DAILY Active Anoro Ellipta 62.5-25 MCG/INH Inhalation 06/23/2023 Unknown Rosuvastatin Calcium 10 MG Oral; Duratio n: 30 Days Active Social History Tobacco Use: Social History Observation Description Date Details (start date - stop date) Former Smoker NA - 05/17/1997 Sex Assigned At : Social History Observation Description Sex Assigned At Female Tobacco Control (Standard) Question Answer Notes Tobacco use: Former smoker When did you stop smoking? 05/17/1997 Vital Signs Blood pressure systolic 124 mm Hg 10/06/19 25 Blood pressure diastolic 68 mm Hg 025 Heart Rate 75 /min 10/05/2024 Height 64.02 in 10/05/2024 Weight 202 lbs 10/05/2024 BMI 34.65 kg/m2 10/05/2024 Height-cm 162.61 cm 10/05/2024 Weight-kg 91.63 kg 10/05/2024 Encounters Encounter Location Date Provider Diagnosis [facility] [employer] [address] [address] 10/05/2024 Kellie Cardoso Generalized anxiety disorder F41.1 ; Schizoaffective disorder, bipolar type F25.0 ; Tardive dyskinesia G24.01 and Other insomnia G47.09 Assessments Encounter Date Diagnosis (ICD Code) Assessment Notes Treatment Notes Treatment Clinical Notes Section Notes 10/05/2024 Generalized anxiety disorder (ICD-10 - F41.1) 10/05/2024 Schizoaffective disorder, bipolar type (ICD-10 - F25.0) 10/05/2024 Tardive dyskinesia (ICD-10 - G24.01) 10/05/2024 Other insomnia (ICD-10 - G47.09) Plan Of Treatment Medication Medication Name Sig Start Date Stop Date Notes traZODone HCl 100 MG 1 tablet at bedtime Oral Once a day; Duration: 90 days Austedo XR 24 MG 1 tablet Orally Once a day; Duration: 30 day(s) 10/06/2024 11/05/2024 OLANZapine 10 MG 1 tablet Oral Once a day buPROPion HCl ER (XL) 150 MG TAKE 1 TABL ET BY MOUTH IN THE MORNING ONCE DAILY Ingrezza 40 MG 1 capsule Orally Once a day 08/31/2024 DULoxetine HCl 30 MG 1 capsule Oral daily Next Appt Details Provider Name:Kellie graham, 11/02/2024 08:30:00 AM, [address], [facility] [address], [place], [address], Progress Notes * SUKUMAR MOSS ADOB:1944 (79 yo F)Acc No.[id number]:10/05/2024 Patient: SUKUMAR ROBBINS Provider: Cory Cardoso :1945 A ge:79 Y S ex:Female Date:10/05/2024 Address:[address] [place] [address], [facility] Pcp:Nguyen Mccabe DO Subjective: * Chief Complaints: * 1 . 1 month f/u. * HPI: H istory of Presenting Problem: 79 y/o female, , grandson lives with her, hx of TAMIKO, insomnia, schizoaffective bipolar type, T ardive dyskinesia. D epression screening: PHQ-9 L ittle interest or pleasure in doing things?Not at all F eeling down, depressed, or hopeless N ot at all T rouble falling or staying asleep, or sleeping too much S everal days F eeling tired or having little energy S everal days P oor appetite or overeating M ore than half the days F eeling bad about yourself or that you are a failure, or have let yourself or your family down N ot at all T rouble concentrating on things, such as reading the newspaper or watching television S everal days M oving or speaking so slowly that other people could have noticed; or the opposite, being so fidgety or restless that you have been moving around a lot more than usual N ot at all T houghts that you would be better off or of hurting yourself in some way N ot at all T otal Score 5 I nterpretation M ild Depression C ontributing Factors: ongoing notes: former Dr. Corral patient stressor: nephew with mental health/drug abuse, destructrive. * Medical History: P roblems: Bereavement, Body mass index 30+ - obesity, Chronic obstructive lung disease, Generalized anxiety disorder, Metabolic syndrome X, Minimal cognitive impairment, Persistent insomnia, Schizoaffective disorder, bipolar type. * Social History: T obacco Use: T obacco Control (Standard) T obacco use: F ormer smoker W jeovany did you stop smoking? 0 05/17/1997 * Medications: T aking Ergocalciferol 1.25 MG (01394 UT) Capsule Oral , Taking Tamsulosin HCl 0.4 MG Capsule Oral , Taking Levothyroxine Sodium 50 MCG Tablet Oral , Taking Pantoprazole Sodium 40 MG Tablet Delayed Release Oral , Taking Rosuvastatin Calcium 10 MG Tablet Oral , Taking DULoxetine HCl 30 MG Capsule Delayed Release Particles 1 capsule Oral Once a day , Notes to Pharmacist: DC 20 mg, Taking OLANZapine 10 MG Tablet 1 tablet Oral Once a day , Taking traZODone HCl 100 MG Tablet 1 tablet at bedtime Oral Once a day As needed, Taking DULoxetine HCl 20 MG Capsule Delayed Release Particles TAKE 1 CAPSULE BY MOUTH ONCE DAILY TOTAL DOSE 50 MG DAILY , Taking Ingrezza 40 MG Capsule 1 capsule Orally Once a day , Taking buPROPion HCl ER (XL) 150 MG Tablet Extended Release 24 Hour TAKE 1 TABLET BY MOUTH IN THE MORNING ONCE DAILY , Unknown Anoro Ellipta 62.5-25 MCG/INH Aerosol Powder Breath Activated Inhalation , Medication List reviewed and reconciled with the patient * Allergies: c lonazePAM: Allergy - Onset Date 06/23/2023, predniSONE: Allergy - Onset Date 06/23/2023, Diphenhydramine: Allergy - Onset Date 06/23/2023. Objective: * Vitals: B P:124/68mm Hg, HR:75/min, Wt:202lbs, Wt-k.63 kg, Ht: 64.02 in, Ht-cm: 162.61 cm, BMI:34.65Index, Body Surface Area: 2.03. Assessment: * Assessment: 1. G eneralized anxiety disorder - F41.1 (Primary) 2 . S chizoaffective disorder, bipolar type - F25.0 3 . T ardive dyskinesia - G24.01 4 .?Other insomnia - G47.09 Plan: * Treatment: 2. S chizoaffective disorder, bipolar type Continue buPROPion HCl ER (XL) Tablet Extended Release 24 Hour, 150 MG, TAKE 1 TABLET BY MOUTH IN THE MORNING ONCE DAILY; C ontinue OLANZapine Tablet, 10 MG, 1 tablet, Oral, Once a day. ? 3. T ardive dyskinesia Stop Ingrezza Capsule, 40 MG, 1 capsule, Orally, Once a day; S tart Austedo XR Tablet Extended Release 24 Hour, 24 MG, 1 tablet, Orally, Once a day, 30 day(s), 30. 4. O ther insomnia Refill traZODone HCl Tablet, 100 MG, 1 tablet at bedtime, Oral, Once a day As needed, 90 days, 90 Tablet, Refills 0. * Procedure Codes: 1 036F TOBACCO NON-USER, 30957 BEHAV ASSMT W/SCORE & DOCD/STAND INSTRUMENT, 89324 BEHAV ASSMT W/SCORE & DOCD/STAND INSTRUMENT * Preventive Medicine: Screenings: D epression screening Have you had a recent depression screening? Y es * Billing Information: * Visit Code: * Procedure Codes: 1036F TOBACCO NON-USER. 29900 BEHAV ASSMT W/SCORE & DOCD/STAND INSTRUMENT. 95940 BEHAV ASSMT W/SCORE & DOCD/STAND INSTRUMENT. * Electronic signature of Adelso Cardoso on 10/06/2024 at 01:47 AM CDT Sign off status: Pending * Provider: Cory Cardoso Date: 10/05/2024 Generated for Og lopez/Ac/Eran on: 10/06/2024 01:47 AM CDT History and Physical Notes * HPI (History of Present Illness) Category Sub-Category Detail Notes Category Not es Depression screening PHQ-9 Little inte rest or pleasure in doing things: Not at all Feeling down, depressed, or hopeless: No t at all Trouble falling or staying asleep, or sl eeping too much: Several days Feeling tired or having little energy: S everal days Poor appetite or overeating: More than h halfway the days Feeling bad about yourself o r that [...] some way: Not at all Total Score: 5 Interpretation: Mild Depression Intervention Depression Screening Findings: N egative Follow-Up for Depression: Psychiatric fo llow-up Suicide Risk Assessment Performed: --tess e
--- OUTSIDE RECORDS SUMMARY | 2024-10-06 01:47 | XMS_ITS | Clinical Summary ---
Author Organization [facility] Address [address] [place], [address] [address] Phone Care Team Providers Care Conservation Of Resources Commissioner Name Role Phone Wing Carrasco MD Primary Care Provider + Shirin Renner MD Unavailable [phone] Sonu Fernandez DO Unavailable [phone] Allergies Active Allergy Reactions Criticality Noted [...] Take 400 Units by mouth daily. Active Runnemede-3 Fatty Acids (OMEGA-3 FISH OIL) 1000 MG [...] Covid-19 Vaccine, Vector-nr, Rs-ad26, Pf, 0.5 Ml ([employer] Niko) 05/26/2020 Family History Medical History Relation Name [...] age to complete this topic Care Teams Conservation Of Resources Commissioner Relationship Specialty Start Date End Date Wing Carrasco MD PCP - General Family Medicine 02/09/16 Shirin Renner MD [address] [facility] [address] [place] [id number] Internal Medicine 02/11/16 Sonu Fernandez DO [address] [facility] [address] [place] [address] Gastroenterology 02/11/16
--- OUTSIDE RECORDS SUMMARY | 2024-10-06 01:47 | XMS_ITS | Clinical Summary ---
Author Organization [facility] Address [address] [place] [address] Care Team Providers Care Interchange Agent Name Role Phone Unavailable Primary Care Provider [...] Documents on File Type Date Recorded Patient Domestic Violence Counselor Expl 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 Directives and Living Will [facility]/08/2016 12:00 [facility]
--- OUTSIDE RECORDS SUMMARY | 2024-10-06 01:47 | XMS_ITS | Clinical Summary ---
Author Organization [facility] Address [address] [place] [address] Care Team Providers Care Cone Trucker Name Role Phone Wing Carrasco MD Primary [...] on file Legal Sex Female 12:19 AM LEATHER CRAFTER Gender Identity Not on file Sexual Orientation Not on file Obstetrics History Last Filed Vital Signs Vital Sign Reading Time Taken Comments Blood Pressure 121/68 07/23/2016 8:08 AM CDT Pulse 52 07/23/2016 8:08 AM CDT Temperature - - Respiratory Rate - - Oxygen Saturation 98% 07/23/2016 8:06 AM CDT Inhaled Oxygen Concentration - - Weight 65.3 kg (144 lb) 02/08/2018 10:16 AM LEATHER CRAFTER Height 157.5 cm (5' 2) 02/08/2018 10:16 AM LEATHER CRAFTER Body Mass Index 26.34 02/08/2018 10:16 AM LEATHER CRAFTER Plan of Treatment Not on file Insurance [facility] [place] [address] [facility] [employer] Care Teams Cone Trucker Relationship Specialty Start Date End Date Wing Carrasco MD [address] [place] [address] PCP - General 12/12/15
--- OUTSIDE RECORDS SUMMARY | 2024-10-06 01:47 | XMS_ITS | Patient Health Record ---
Author Organization [facility] Address [address] [facility] [address] [place] [address] Care Team Providers Care Legal Assistant Name Role Phone Nguyen Mccabe DO Primary Care Provider UnavailKellie Fisher Unavailable [phone] ShaynaHenrietta ramirezdidier Unavailable [phone] Allergies Allergen (clinical drug ingredient) Drug/Non Drug Allergy documented on EMR Reaction Allergy Type Onset Date Status clonazepam clonazePAM Unknown Drug Allergy 06/23/2023 Acti ve predniSONE Unknown Drug Allergy 06/23/2023 Activ e diphenhydramine Diphenhydramine Unknown Drug Allergy 06/22 Active Reason For Referral No Information Medications Medication SIG (Take, Route, Frequency, Duration) Notes Start Date End Date Status DULoxetine HCl 20 MG TAKE 1 CAPSULE BY MOUTH ONCE DAILY TOTAL DOSE 50 MG DAILY Active Ergocalciferol 1.25 MG (60866 UT) Oral 06/23/2023 Active Anoro Ellipta 62.5-25 MCG/INH Inhalation 06/23/2023 Unknown traZODone HCl 100 MG 1 tablet at bedtime Oral Once a day; Duration: 90 days As needed Active Rosuvastatin Calcium 10 MG Oral; Duratio n: 30 Days Active Austedo XR 24 MG 1 tablet Orally Once a day; Duration: 30 day(s) 10/06/2024 11/05/2024 Active OLANZapine 10 MG 1 tablet Oral Once a day Active buPROPion HCl ER (XL) 150 MG TAKE 1 TABLET BY MOUTH IN THE MORNING ONCE DAILY Active Pantoprazole Sodium 40 MG Oral 06/23/2023 Active DULoxetine HCl 30 MG 1 capsule Oral daily Active Levothyroxine Sodium 50 MCG Oral 06/23/2023 Active Tamsulosin HCl 0.4 MG Oral 06/23/2023 Active Immunizations Vaccine Route Administration Date Status Comme nts Pneumococcal conjugate PCV 13 Unknown 04/09/2016 Admini malina Pfizer Biontech Covid-19 Vac cine 2nd dose Unknown 02/05/2021 Administered Jaiden Covid-19 Vaccine Unknown 05/26/2020 Administere d Influenza, seasonal, injecta ble, preservative free, 3 yrs and above Unknown 12/20/2015 Administered Influenza, high dose seasonal Unknown 12/26/2014 Admini stered Social History Tobacco Use: Social History Observation Description Date Details (start date - stop date) Former Smoker NA - 05/17/1997 Sex Assigned At : Social History Observation Description Sex Assigned At Female Household Question Answer Notes Marital status: Number of adults in household: 2 garland cuellar lives with her Tobacco Control (Standard) Question Answer Notes Tobacco use: Former smoker When did you stop smoking? 05/17/1997 Problems Problem Type SNOMED Code ICD Code Onset Dates Problem Status W/U Status Risk Notes Problem Schizoaffective disorder, bipolar type (17845631) Schizoaffective disorder, bipolar type (F25.0) Active confirmed Problem Generalized anxiety disorder (F41.1) Active confirmed Problem Insomnia (610800614) Other insomnia (G47.09) Active confirmed Problem Tardive dyskinesia (424648123) Tardive dyskinesia (G24.01) Active confirmed Vital Signs Heart Rate 75 /min 10/05/2024 Height-cm 162.61 cm 10/05/2024 Blood pressure diastolic 68 mm Hg 10/05/2024 Weight-kg 91.63 kg 10/05/2024 Height 64.02 in 10/05/2024 Blood pressure systolic 124 mm Hg 10/05/2024 Weight 202 lbs 10/05/2024 BMI 34.65 kg/m2 10/05/2024 Encounters Encounter Location Date Provider Diagnosis [facility] [address] [facility] [address] [place] [address] 10/05/2024 Kellie Cardoso Generalized anxiety disorder F41.1 ; Schizoaffective disorder, bipolar type F25.0 ; Tardive dyskinesia G24.01 and Other insomnia G47.09 [facility] [address] [facility] [address] [place] [address] 11/10/2023 Thena Shayna Schizoaffective disorder, bipolar type F25.0 [facility] [address] [place] [address] 02/23/2024 Thena Shayna Schizoaffective disorder, bipolar type F25.0 and Generalized anxiety disorder F41.1 [facility] [address] [place] [address] 04/26/2024 Thena Shayna Schizoaffective disorder, bipolar type F25.0 ; Generalized anxiety disorder F41.1 and Other insomnia G47.09 [facility] [address] [place] [address] 06/22/2024 Kellie Hagopian Schizoaffective disorder, bipolar type F25.0 ; Generalized anxiety disorder F41.1 ; Other insomnia G47.09 ; Encounter for screening for cardiovascular disorders Z13.6 and Encounter for screening for depression Z13.31 [place] [address] [place] [address] 07/27/2024 Kellie Hagopian Schizoaffective disorder, bipolar type F25.0 ; Negative depression screening Z13.31 ; Generalized anxiety disorder F41.1 ; Other insomnia G47.09 and Benign essential HTN I10 [place] [address] [facility] [address] [place] [address] 08/31/2024 Kellie Hagopian Schizoaffective disorder, bipolar type F25.0 ; Generalized anxiety disorder F41.1 ; Other insomnia G47.09 ; Tardive dyskinesia G24.01 and Negative depression screening Z13.31 [place] [address] [place] [address] 12/02/2023 Thena Shayna Schizoaffective disorder, bipolar type F25.0 [place] [address] [place] [address] 12/20/2023 Thena Shayna [place] [address] [place] [address] 12/20/2023 Thena Shayna Schizoaffective disorder, bipolar type F25.0 [place] [address] [place] [address] 03/30/2024 Gerard Corral Schizoaffective disorder, bipolar type F25.0 [facility] [address] [place] [address] 05/30/2024 Kellie Walker Schizoaffective disorder, bipolar type F25.0 [facility] [address] [place] [address] 06/22/2024 Kellie Cardoso Assessments Encounter Date Diagnosis (ICD Code) Assessment Notes Treatment Notes Treatment Clinical Notes Section Notes 10/05/2024 Generalized anxiety disorder (ICD-10 - F41.1) 04/26/2024 Schizoaffective disorder, bipolar type (ICD-10 - F25.0) 04/26/2024 Generalized anxiety disorder (ICD-10 - F41.1) 05/30/2024 Schizoaffective disorder, bipolar type (ICD-10 - F25.0) 07/27/2024 Schizoaffective disorder, bipolar type (ICD-10 - F25.0) 06/22/2024 Schizoaffective disorder, bipolar type (ICD-10 - F25.0) 02/23/2024 Schizoaffective disorder, bipolar type (ICD-10 - F25.0) 02/23/2024 Generalized anxiety disorder (ICD-10 - F41.1) 12/20/2023 Schizoaffective disorder, bipolar type (ICD-10 - F25.0) 10/05/2024 Schizoaffective disorder, bipolar type (ICD-10 - F25.0) 03/30/2024 Schizoaffective disorder, bipolar type (ICD-10 - F25.0) 12/02/2023 Schizoaffective disorder, bipolar type (ICD-10 - F25.0) 11/10/2023 Schizoaffective disorder, bipolar type (ICD-10 - F25.0) 08/31/2024 Schizoaffective disorder, bipolar type (ICD-10 - F25.0) 08/31/2024 Generalized anxiety disorder (ICD-10 - F41.1) 08/31/2024 Other insomnia (ICD-10 - G47.09) 06/22/2024 Generalized anxiety disorder (ICD-10 - F41.1) 07/27/2024 Generalized anxiety disorder (ICD-10 - F41.1) 10/05/2024 Tardive dyskinesia (ICD-10 - G24.01) 07/27/2024 Negative depression screening (ICD-10 - Z13.31) 04/26/2024 Other insomnia (ICD-10 - G47.09) 10/05/2024 Other insomnia (ICD-10 - G47.09) 07/27/2024 Other insomnia (ICD-10 - G47.09) 06/22/2024 Other insomnia (ICD-10 - G47.09) 08/31/2024 Tardive dyskinesia (ICD-10 - G24.01) Electronic Prior Authorization was requested for Ingrezza 40 MG Capsule. Provider can order medication once approval received. 08/31/2024 Negative depression screening (ICD-10 - Z13.31) 06/22/2024 Encounter for screening for cardiovascular disorders (ICD-10 - Z13.6) 07/27/2024 Benign essential HTN (ICD-10 - I10) 06/22/2024 Encounter for screening for depression (ICD-10 - Z13.31) 02/23/2024 Other referral to the local chapter or national office of the Alzheimer's Association ( ; http://www.alz.o rg), the Alzheimer's Disease Education and Referral Center (ADEAR) ( ; http://www.al.n ih.gov/Alzheimer s/), 06/22/2024 Other Shay Weber, an 79-year-old female with a history of depression, anxiety, and psychosis, presents with concerns about sleep disturbances, sexual dysfunction, and involuntary movements. Depression and Anxiety Assessment: Patient reports recent depressive symptoms when Cymbalta (duloxetine) dose was reduced from 60 mg to 30 mg daily. She improved when dose was increased to 60 mg. Currently alternating between 60 mg and 30 mg every other day due to medication availability. Previous trial of Wellbutrin was helpful for mood and libido. No current suicidal ideation or psychotic symptoms reported. Plan: - Start Wellbutrin XL 150 mg PO daily in the morning for depression and to potentially improve libido - Adjust Cymbalta (duloxetine) dosing: Decrease to 50 mg daily (20 mg + 30 mg) - Follow up in 4 weeks to assess response to Wellbutrin and Cymbalta adjustments - Informed patient that it may take a couple of weeks to notice improvement, with full benefits expected in 4-6 weeks Insomnia Assessment: Patient reports variable sleep quality. She has been using trazodone as needed and recently started magnesium glycinate, which she finds helpful. She slept well the previous night with magnesium alone, without trazodone. Plan: - Continue trazodone 100 mg PO as needed for sleep - Continue magnesium glycinate supplement (patient-initiate d) for sleep Sexual Dysfunction Assessment: Patient reports inability to achieve orgasm, which is likely a side effect of Cymbalta (duloxetine). Previous trial of Wellbutrin was helpful for libido. Plan: - Restart Wellbutrin XL 150 mg PO daily (as mentioned in depression management) to potentially improve libido and sexual function - Monitor for improvement in sexual function with Wellbutrin addition Tardive Dyskinesia Assessment: Patient reports involuntary movements in feet and right arm, which appear to be worsening. She previously experienced mouth movements that have since resolved. These symptoms are consistent with tardive dyskinesia, likely associated with olanzapine use. Plan: - Consider gradual dose reduction of olanzapine to potentially improve tardive dyskinesia symptoms - Monitor closely for recurrence of psychotic symptoms or mood destabilization if olanzapine dose is reduced - Inform patient about potential need for medication to manage tardive dyskinesia if symptoms worsen - Discuss alternative antipsychotic options with fewer movement-related side effects if needed in the future Medication Side Effects Assessment: Patient reports significant dry mouth and polydipsia, likely medication-relate d side effects of long-standing duration. Plan: - Continue current management of increased fluid intake - Monitor for any changes or worsening of symptoms 07/27/2024 Erasmo Weber, female patient, presents for follow-up of mood and anxiety management, with ongoing medication adjustments and sleep concerns. Mood and Anxiety Disorders Assessment: Patient reports overall good mood with some anxiety, particularly in response to her partner's anxiety. She has been taking duloxetine 30 mg daily, which seems to be managing her symptoms adequately. Previously, attempts to increase the dose to 60 mg resulted in depressive symptoms. The addition of Wellbutrin has been beneficial for mood stabilization and potentially addressing libido concerns. Olanzapine 10 mg at bedtime continues to be effective for mood stabilization and preventing panic symptoms. Plan: - Continue duloxetine 30 mg PO daily - Continue Wellbutrin (dose not specified) - Continue olanzapine 10 mg PO at bedtime - Monitor for changes in libido and ability to reach orgasm - Observe for worsening of movement-related side effects (particularly in legs) - Follow up in approximately 4 weeks Sleep Disturbance Assessment: Patient reports patient office rep awakenings with increased thirst. She is able to fall back asleep unless it's between 4-5 AM. Patient has been using [id number] magnesium supplements from [employer] to aid sleep. Plan: - Continue current sleep regimen, including trazodone (dose not specified) - Patient to continue using magnesium supplements as needed for sleep Medication Side Effects Assessment: Patient reports some leg movements, possibly related to olanzapine. These movements are not worsening or causing significant distress at present. Clinician acknowledges that olanzapine can contribute to movement concerns and suggests potential dose reduction if symptoms worsen. Plan: - Continue current medication regimen - Monitor for worsening of movement-related side effects - Consider olanzapine dose reduction if movement concerns become more bothersome 08/31/2024 Erasmo Weber, female, presents with recent stressors related to her nephew's chaotic behavior, sexual dysfunction, movement disorders, and neuropathy. Psychosocial Stressors Assessment: Patient reports significant stress due to her nephew's recent stay at her home. The nephew engaged in substance abuse, exhibited destructive behavior, and displayed anger issues. This situation led to the nephew's admission to [facility] approximately 1.5 weeks ago. Patient expresses feelings of distrust and fear towards her nephew, leading her to remove him from her trust. Plan: - Continue current medication regimen for stress management - Encourage ongoing stress-reduction techniques Sexual Dysfunction Assessment: Patient reports recent sexual function issues, having experienced an orgasm two nights ago but unable to achieve one the following night. This may be related to recent stress or medication side effects. Plan: - Monitor sexual function and its relation to stress levels - Continue current medication regimen Movement Disorders Assessment: Patient reports shaking in feet, mouth, and hands, potentially indicative of tardive dyskinesia. This may be a side effect of olanzapine. Previously, when the olanzapine dose was decreased, the patient experienced increased paranoia. The movement issues are causing distress to the patient. Plan: - Initiate Ingrezza for tardive dyskinesia - Provided 5 weeks of samples - Informed patient about potential side effects: initial nausea, sleepiness - Advised taking medication at night - Maintain current olanzapine dose - Follow up in 5 weeks to assess efficacy and tolerability of Ingrezza Plan Of Treatment Next Appt Details Provider Name:Kellie Sabrina graham, 11/02/2024 08:30:00 AM, [address], [address], [place], [address], Insurance Providers Payer Name Payer Address Payer Phone Subscriber Number Group Number Insured Name Patient Relationship to Insured Coverage Start Date Coverage End Date [employer] Medicare Replacement/ Advantage - [place] [address] [address] [place] [address] [id number] SHAY LINDSEY Self - patient is the insured Medical (General) History Medical History History ICD Code Problems: Bereavement Body mass index 30+ - obesity Chronic obstructive lung disease Generalized anxiety disorder Metabolic syndrome X Minimal cognitive impairment Persistent insomnia Schizoaffective disorder, bipolar type Hospitalization History Reason Date(Month/Year) chest pains 02/15/2024
--- OUTSIDE RECORDS SUMMARY | 2024-10-06 01:47 | XMS_ITS | Referral Summary ---
Author Organization [facility] Address [address] [place] [address] Care Team Providers Care Double Spindle Shaper Operator Name Role Phone Wing Carrasco MD [...] on file Legal Sex Female 12:19 AM MICA PATCHER Gender Identity Not on file Sexual Orientation Not on file Last Filed Vital Signs Vital Sign Reading Time Taken Comments Blood Pressure 121/68 07/23/2016 8:08 AM CDT Pulse 52 07/23/2016 8:08 AM CDT Temperature - - Respiratory Rate - - Oxygen Saturation 98% 07/23/2016 8:06 AM CDT Inhaled Oxygen Concentration - - Weight 65.3 kg (144 lb) 02/08/2018 10:16 AM MICA PATCHER Height 157.5 cm (5' 2) 02/08/2018 10:16 AM MICA PATCHER Body Mass Index 26.34 02/08/2018 10:16 AM MICA PATCHER Plan of Treatment Not on file Insurance [facility]V[employer] Address[address] [phone] [facility] Address: [facility] [address] [place] [address] Care Teams Double Spindle Shaper Operator Relationship Specialty Start Date End Date Wing Carrasco MD [address] [place] [address] PCP - General 12/12/15
--- OUTSIDE RECORDS SUMMARY | 2024-10-06 01:47 | XMS_ITS | Encounter Summary ---
Author Organization [facility] Address [address] [place] [address] Care Team Providers Care Desktop Engineer Name Role Phone Unavailable Primary Care Provider Unavailabl e Encounter Details Date Type Department Care Team (Late st Contact Info) Description 06/24/2003 Outpatient Historical [facility] [address] [place] [id number] Mark Anthony Acosta DO NO ADDRESS ON FILE Social History Tobacco Use Types Packs/Day Years Used Date Smoking Tobacco: Never Assessed Comments Unknown Sex and Gender Information Value Date Recorded Sex Assigned at Not on file Legal Sex Female 3:18 AM COAT BASTER Gender Identity Not on file Sexual Orientation Not on file documented as of this encounter Plan of Treatment Not on file documented as of this encounter Visit Diagnoses Not on filedocumented in this encounter
--- NOTE | 2024-10-06 03:10 | ED_ITS ---
HPI - Female Genitourinary General Chief complaint: Urogenital-Female Stated complaint: trouble with urination Time Seen by Provider: 10/06/24 01:25 History of Present Illness HPI Narrative: 79-year-old female presenting to the emergency department for overactive bladder symptoms. She states she has been going to the bathroom every hour and only getting dribbles of urine out. She feels like she is retaining urine. She is on Flomax at home. Has had symptoms of bladder urgency for several months worsening over last few weeks. No back pain, fever, chills, abdominal pain. Has seen urology previously in the remote past but does not follow them currently. No history of kidney stones. Was otherwise in her normal state of health. Related Data Home Medications ?Medication ?Instructions ?Recorded ?Confirmed ?Last Taken ?Type trazodone 50 mg tablet 50 mg PO QHS PRN Sleep 05/04/21 10/04/24 02/14/24 20:00 History duloxetine 30 mg capsule,delayed 30 mg PO .every other day 09/16/23 10/04/24 02/14/24 09:00 History release olanzapine 10 mg tablet 10 mg PO QHS 02/14/24 10/04/24 02/14/24 19:00 History lutein 20 mg tablet 20 mg PO DAILY 05/31/24 10/04/24 Unknown History bupropion HCl 150 mg 24 hr tablet, 150 mg PO QAM 07/03/24 10/04/24 Unknown History extended release (Wellbutrin XL) magnesium glycinate PO QHS 09/27/24 10/04/24 Unknown History tamsulosin 0.4 mg capsule 0.4 mg PO BID PRN 09/27/24 10/04/24 Unknown History valbenazine 40 mg capsule 40 mg PO DAILY 09/27/24 10/04/24 Unknown History (Ingrezza) Allergies Allergy/AdvReac Type Severity Reaction Status Date / Time clonazepam Allergy Unknown Unknown Verified 10/05/24 21:40 diphenhydramine Allergy Unknown Unknown Verified 10/05/24 21:40 hydroxyzine Allergy Unknown Unknown Verified 10/05/24 21:40 prednisone Allergy Unknown MAKES Verified 10/05/24 21:40 PATIENT MANIC zolpidem Allergy Unknown Unknown Verified 10/05/24 21:40 antihistamin AdvReac Unknown Hyperactive Uncoded 10/04/24 08:33 Review of Systems 2 Review of Systems: [facility] Past Medical History Medical History Tardive dyskinesia Peripheral neuropathy Peripheral neuropathy Osteoporosis Anxiety GERD (gastroesophageal reflux disease) Unilateral primary osteoarthritis, right knee Sciatica of left side Stress incontinence Spinal stenosis DISH (diffuse idiopathic skeletal hyperostosis) cxr 08/2017 Depression Bipolar disorder Schizophrenia Hypothyroid Finger fracture Fibroids IBS (irritable bowel syndrome) Sleep apnea COPD (chronic obstructive pulmonary disease) CPAP (continuous positive airway pressure) dependence HTN (hypertension) Glaucoma Fuchs' corneal dystrophy Surgical History Surgical History History of sinus surgery (07/2023) Balloon sinuuloplasty H/O breast surgery fibroid/lump Right breast 1999 History of cholecystectomy 01/2016 History of hemorrhoidectomy History of rectal surgery rectal prolapse repair History of discectomy History of laminectomy 2016 History of bladder surgery urethra tied up for stress incontinence H/O bilateral oophorectomy partial History of appendectomy Family History Family History Sibling Depression Heart disease Diabetes mellitus Father Diabetes mellitus Mother Oral cancer Grandparent CAD (coronary artery disease) Other Arthritis Hypertension Neuropathy Social History Social History Years smoked: 30 Smoking status: Former smoker Tobacco type: cigarettes Smoking end date: 05/17/97 Alcohol intake: former Substance use: never Substance use type: does not use Do You Feel Safe in your Home?: Yes Lack of Transportation: No Lack of Food: Never True Current Housing: I Have Housing Concerned About Future Housing: No Difficulty Paying Gas/Electric Bills: No Difficulty Paying for Meds: No Currently Unemployed: No Education: Bachelor's Degree Difficulty w/ Childcare or Family Care: No Living arrangements: alone Occupation/Education: unemployed Gender identity (if verbalized by the patient): Female Sexual Orientation (if Verbalized by the Patient): Straight or Heterosexual Spiritual care concerns: No Agree to blood products: Yes Exam 2 Narrative: GENERAL: [Well-appearing, well-nourished, and in no acute distress.] HEAD: [Normocephalic, atraumatic.] EYES: [PERRLA and EOMI.] ENT: Nares clear, no rhinorrhea or epistaxis. Mucous membranes moist. NECK: Supple. CHEST: [Clear to auscultation. No respiratory distress.] HEART: [Regular rate and rhythm]. No murmur heard. [Normal peripheral pulses.] ABDOMEN: [Soft, nondistended], [nontender], [No rigidity or guarding] EXTREMITIES: Normal range of motion. [No edema.] SKIN: Warm, dry, no rash. NEURO: [No focal deficits]. Alert and oriented [x3.] PSYCH: [Normal mood and affect.] Course Vital Signs Vital signs: Vital Signs Temperature 36.5 C 10/05/24 21:49 Pulse Rate 75 10/05/24 21:49 Respiratory Rate 16 10/05/24 21:49 Blood Pressure 122/65 10/05/24 21:49 Pulse Oximetry 99 10/05/24 21:49 Oxygen Delivery Room Air 10/05/24 21:49 Temperature 36.8 C 10/06/24 00:47 Pulse Rate 87 10/06/24 00:48 Respiratory Rate 18 10/06/24 00:48 Blood Pressure 127/76 10/06/24 00:48 Pulse Oximetry 97 10/06/24 00:48 Oxygen Delivery Room Air 10/06/24 00:47 MDM - Female Genitourinary MDM Narrative Medical decision making narrative: 79-year-old female presenting to the emergency department for overactive bladder symptoms. She states she has been going to the bathroom every hour and only getting dribbles of urine out. She feels like she is retaining urine. She is on Flomax at home. Has had symptoms of bladder urgency for several months worsening over last few weeks. No back pain, fever, chills, abdominal pain. Has seen urology previously in the remote past but does not follow them currently. No history of kidney stones. Was otherwise in her normal state of health. Patient has a soft nontender nondistended abdomen with reassuring examination and normal vital signs. Postvoid residual bladder scan done at triage shows no retention and she only had 80 cc after urinating. She states she had to the bathroom again after little bit of time and again a postvoid residual was done which showed approximately 80 cc. No signs of significant retention, urinalysis shows no signs of active infection or blood. No bacteria. Normal laboratory studies without any kidney issues. Her symptoms are consistent with overactive bladder and we discussed treatment options. Patient would like to proceed with Mirabegron after discussion on different modalities. She will follow-up with Urology on outpatient basis and we initiated the 1st dose here and give her a prescription with instructions to stop taking Flomax for counter productive side effects. Patient and family comfortable with the plan and safely discharged home. Medical Records Attestation: I reviewed the patient's medical records. Lab Data Attestation: I reviewed the patient's lab results. 10/06/24 01:11 10/06/24 01:11 Labs: Lab Results 10/06/24 10/06/24 Range/Units 00:04 01:11 WBC 10.3 H (4.5-10.0) K/mm3 RBC 4.52 (4.2-5.4) M/mm3 Hgb 13.3 (12.0-15.0) g/dL Hct 39.4 (37.0-47.0) % MCV 87.2 (80-100) fl MCH 29.4 (26-34) pg MCHC 33.8 (32-36) g/dl RDW 13.5 (11.5-14.5) % Plt Count 153 (150-375) k/mm3 MPV 10.6 H (7.4-10.4) fl Immature Gran % (Auto) 0.4 (0-0.5) % Neut % (Auto) 61.8 (45.5-73.1) % Lymph % (Auto) 24.9 (18.3-44.2) % Lipscomb % (Auto) 7.6 (2.6-8.5) % Eos % (Auto) 4.8 H (0-4.4) % Baso % (Auto) 0.5 (0.2-1.2) % Lymph # (Auto) 2.56 (0.9-3.2) K/mm3 Lipscomb # (Auto) 0.8 H (0.1-0.6) K/mm3 Eos # (Auto) 0.5 H (0-0.3) K/mm3 Baso # (Auto) 0.1 (0.0-0.1) K/mm3 Abs Immat Gran (auto) 0.04 H (0.00-0.031) K/mm3 Absolute Neuts (auto) 6.4 (1.3-6.7) K/mm3 Absolute Nucleated RBC 0.000 (0.0-0.012) K/mm3 Nucleated RBC % 0.0 (0.0-0.2) % Sodium 137 (137-145) mmol/L Potassium 3.9 (3.4-5.0) mmol/L Chloride 103 (98-107) mmol/L Carbon Dioxide 25 (22-30) mmol/L Anion Gap 9 (4-12) mmol/L BUN 17 (7-17) mg/dL Creatinine 0.80 (0.7-1.0) mg/dL Estim Creat Clear Calc 50 ml/min Estimated GFR > 60 (59 - ) Glucose 120 H (65-110) mg/dL Calcium 9.4 (8.4-10.2) mg/dL Total Bilirubin 0.4 (0.2-1.3) mg/dL AST 29 (14-36) U/L ALT 25 (6-35) U/L Alkaline Phosphatase 79 (38-126) U/L Total Protein 6.8 (6.3-8.2) g/dL Albumin 4.1 (3.5-5.1) g/dL Urine Color Yellow (Yellow) Urine Appearance Clear (Clear) Urine pH 6.5 (5.0-9.0) Ur Specific [place] 1.013 (1.001-1.035) Urine Protein Negative (Negative) mg/dL Urine Glucose (UA) Negative (Negative) mg/dL Urine Ketones Negative (Negative) mg/dL Ur Blood (Man) Negative (Negative) Urine Nitrate Negative (Negative) Urine Bilirubin Negative (Negative) Urine Urobilinogen 0.2 (<2.0) mg/dL Leukocyte Esterase Rfl Negative (Negative) ANA LAURA/UL Discharge Plan Discharge Clinical Impression: OAB (overactive bladder), Dysuria Patient Disposition: Home Condition: Stable Instructions: Antibiotic Form, Overactive Bladder (DC), Urinary Urgency and Frequency (DC) Additional Instructions: Your laboratory assessments are reassuring without any signs of infection, no signs of urinary blood or bacteria, no evidence of dehydration. Your symptoms do sound like overactive bladder and we will trial a medication called Mirabegron which is taken once daily. Do not take the Flomax at home as that can cause adverse effects in combination. Follow-up with Urology and return with any emergent concerns at any time. Patient Language: Palestinian Prescriptions: New mirabegron [Myrbetriq] 25 mg tablet extended release 24 hr 25 mg PO DAILY 30 Days Qty: 30 0RF No Action duloxetine 30 mg capsule,delayed release(DR/EC) 30 mg PO .every other day albuterol sulfate [Ventolin HFA] 90 mcg/actuation HFA aerosol inhaler 1 inh inhalation Q4H PRN (Reason: shortness of breath or wheezing) Qty: 6.7 0RF aspirin [Adult Low Dose Aspirin] 81 mg tablet,delayed release (DR/EC) 81 mg PO DAILY Qty: 90 4RF bupropion HCl [Wellbutrin XL] 150 mg tablet extended release 24 hr 150 mg PO QAM Ingrezza 40 mg capsule 40 mg PO DAILY magnesium glycinate 400 mg PO QHS olanzapine 10 mg tablet 10 mg PO QHS rosuvastatin [Crestor] 10 mg tablet 10 mg PO DAILY Qty: 90 3RF lutein 20 mg tablet 20 mg PO DAILY Rx Instructions: give with meal/snack tamsulosin 0.4 mg capsule 0.4 mg PO BID PRN celecoxib [Celebrex] 200 mg capsule 200 mg PO DAILY Qty: 30 0RF trazodone 50 mg tablet 50 mg PO QHS PRN (Reason: Sleep) cholecalciferol (vitamin D3) 1,250 mcg (50,000 unit) capsule 1,250 mcg PO WEEKLY Qty: 13 2RF Rx Instructions: Pt states she takes medication on wednesdays tiotropium bromide [Spiriva with HandiHaler] 18 mcg capsule, w/inhalation device 1 cap inhalation DAILY Qty: 90 3RF Rx Instructions: puncture 1 cap using device; one dose = 2 inhalations levothyroxine 50 mcg tablet See Rx Instructions .ROUTE .COMPLEX Qty: 100 2RF Dose Instruction: TAKE 1 TABLET BY MOUTH DAILY Rx Instructions: TAKE 1 TABLET BY MOUTH DAILY pantoprazole 40 mg tablet,delayed release (DR/EC) See Rx Instructions .ROUTE .COMPLEX Qty: 100 0RF Dose Instruction: TAKE 1 TABLET BY MOUTH DAILY Rx Instructions: TAKE 1 TABLET BY MOUTH DAILY Follow-up/Referrals: Nguyen Mccabe DO [Primary Care Provider] - Tony Levi MD [Physician] - 3 Days (Overactive bladder and urgency) Time of Disposition: 03:10
[2024-10-06] MEDS: MIRABEGRON 25 MG ER TABLET PO (03:13)
[2024-10-06 03:26] VITALS: BP 131/70; PULSE 81; RESP 18; O2SAT 96
== END 2024-10-06 03:27 | disposition home or self-care (01) ==
PROVIDERS: Emergency Provider Student in an Organized Health Care Education/Training Program; PCP Family Medicine
DX: N32.81 Overactive bladder (principal); R30.0 Dysuria; I10 Essential (primary) hypertension; J44.9 Chronic obstructive pulmonary disease, unspecified; E03.9 Hypothyroidism, unspecified; K58.9 Irritable bowel syndrome, unspecified; K21.9 Gastro-esophageal reflux disease without esophagitis; M17.11 Unilateral primary osteoarthritis, right knee; M81.0 Age-related osteoporosis without current pathological fracture; G62.9 Polyneuropathy, unspecified; G24.01 Drug induced subacute dyskinesia; G47.30 Sleep apnea, unspecified; H40.9 Unspecified glaucoma; H18.519 Endothelial corneal dystrophy, unspecified eye; F31.9 Bipolar disorder, unspecified; F20.9 Schizophrenia, unspecified; F41.9 Anxiety disorder, unspecified; Z87.891 Personal history of nicotine dependence; Z90.722 Acquired absence of ovaries, bilateral; Z79.82 Long term (current) use of aspirin; Z79.899 Other long term (current) drug therapy
CPT/HCPCS: 36415; 80053; 81003; 85025; 99283; A9270

== ENCOUNTER 2024-10-27 10:19 | Emergency (ER) | payer MEDICARE, SELFPAY ==
[2024-10-27 10:30] VITALS: BP 150/66; PULSE 72; RESP 18; TEMP 36.7; O2SAT 96
--- NOTE | 2024-10-27 10:51 | ED.SKABFB ---
HPI - Skin/Abscess/Foreign Bdy General Chief complaint: Skin/Abscess/Foreign Body Stated complaint: red spots all over legs Time Seen by Provider: 10/27/24 10:20 Source: patient and RN notes reviewed Mode of arrival: ambulatory Limitations: no limitations History of Present Illness HPI narrative: 79-year-old female presents Express Care complaining of rash to her lower legs. Patient says started 2 days ago. Patient said she was recently walking outside in a wooded area walking through tall grass. Patient denies any itchiness for reports the more red spots or popping up on her lower extremities. Patient denies any fevers, pain, body aches, chills, nausea vomiting, respiratory symptoms, chest pains around her any other symptoms. Patient has not tried anything [id number] to help with symptoms. Related Data Home Medications ?Medication ?Instructions ?Recorded ?Confirmed ?Last Taken ?Type trazodone 50 mg tablet 50 mg PO QHS PRN Sleep 05/04/21 10/18/24 02/14/24 20:00 History duloxetine 30 mg capsule,delayed 30 mg PO .every other day 09/16/23 10/18/24 02/14/24 09:00 History release olanzapine 10 mg tablet 10 mg PO QHS 02/14/24 10/18/24 02/14/24 19:00 History lutein 20 mg tablet 20 mg PO DAILY 05/31/24 10/18/24 Unknown History bupropion HCl 150 mg 24 hr tablet, 150 mg PO QAM 07/03/24 10/18/24 Unknown History extended release (Wellbutrin XL) magnesium glycinate PO QHS 09/27/24 10/18/24 Unknown History valbenazine 40 mg capsule 40 mg PO DAILY 09/27/24 10/18/24 Unknown History (Ingrezza) mirabegron 50 mg tablet,extended 50 mg PO DAILY 10/18/24 10/18/24 Unknown History release 24 hr (Myrbetriq) Allergies Allergy/AdvReac Type Severity Reaction Status Date / Time clonazepam Allergy Unknown Unknown Verified 10/27/24 10:34 diphenhydramine Allergy Unknown Unknown Verified 10/27/24 10:34 hydroxyzine Allergy Unknown Unknown Verified 10/27/24 10:34 prednisone Allergy Unknown MAKES Verified 10/27/24 10:34 PATIENT MANIC zolpidem Allergy Unknown Unknown Verified 10/27/24 10:34 antihistamin AdvReac Unknown Hyperactive Uncoded 10/27/24 10:34 Review of Systems Review of Systems: CONSTITUTIONAL: Denies fever, chills, or sweats. EYES: Denies visual changes, redness, or discharge. ENT: Denies rhinorrhea, congestion, sore throat, or otalgia. CARDIOVASCULAR: Denies chest pain, palpitations, or edema. RESPIRATORY: Denies cough or dyspnea. GASTROINTESTINAL: Denies abdominal pain, nausea, vomiting, or diarrhea. GENITOURINARY: Denies dysuria or hematuria. SKIN: Positive for rash. Negative for itching. MUSCULOSKELETAL: Denies back pain, joint pain, or myalgia. NEUROLOGIC: Denies headache, numbness, or weakness. PSYCHIATRIC: Denies anxiety or depression. All other systems reviewed are negative, except as documented in HPI. [facility] Past Medical History Medical History Class 2 severe obesity with serious comorbidity and body mass index (BMI) of 37.0 to 37.9 in adult Tardive dyskinesia Peripheral neuropathy Peripheral neuropathy Osteoporosis Anxiety GERD (gastroesophageal reflux disease) Unilateral primary osteoarthritis, right knee Sciatica of left side Stress incontinence Spinal stenosis DISH (diffuse idiopathic skeletal hyperostosis) cxr 08/2017 Depression Bipolar disorder Schizophrenia Hypothyroid Finger fracture Fibroids IBS (irritable bowel syndrome) Sleep apnea COPD (chronic obstructive pulmonary disease) CPAP (continuous positive airway pressure) dependence HTN (hypertension) Glaucoma Fuchs' corneal dystrophy Surgical History Surgical History History of sinus surgery (07/2023) Balloon sinuuloplasty H/O breast surgery fibroid/lump Right breast 1999 History of cholecystectomy 01/2016 History of hemorrhoidectomy History of rectal surgery rectal prolapse repair History of discectomy History of laminectomy 2017 History of bladder surgery urethra tied up for stress incontinence H/O bilateral oophorectomy partial History of appendectomy Family History Family History Sibling Depression Heart disease Diabetes mellitus Father Diabetes mellitus Mother Oral cancer Grandparent CAD (coronary artery disease) Other Arthritis Hypertension Neuropathy Social History Social History Years smoked: 30 Smoking status: Former smoker Tobacco type: cigarettes Smoking end date: 05/17/97 Alcohol intake: former Substance use: never Substance use type: does not use Do You Feel Safe in your Home?: Yes Lack of Transportation: No Lack of Food: Never True Current Housing: I Have Housing Concerned About Future Housing: No Difficulty Paying Gas/Electric Bills: No Difficulty Paying for Meds: No Currently Unemployed: No Education: Bachelor's Degree Difficulty w/ Childcare or Family Care: No Living arrangements: alone Occupation/Education: unemployed Gender identity (if verbalized by the patient): Female Sexual Orientation (if Verbalized by the Patient): Straight or Heterosexual Spiritual care concerns: No Agree to blood products: Yes Comments At the time of my signature, I reviewed and agree with the nursing past medical, surgical, social, and family history. There is no relevant family history pertinent to the patient complaint. Exam Narrative: GENERAL: This is a well-nourished, well-developed adult, in no apparent distress. They are non ill-appearing, nontoxic appearing. HEAD: normocephalic, atraumatic. EYES: Sclera clear/white. Conjunctiva normal. Vision is grossly intact. Extraocular movements intact EARS: External ears normal, Hearing grossly intact. NOSE: External nose normal THROAT: Mucous membranes moist, NECK: Neck supple, CARDIOVASCULAR: Regular rate and rhythm RESPIRATORY: Respiratory rate normal, respiratory effort nonlabored, no respiratory distress SKIN: Erythematous small circular papular rash the patient's bilateral lower extremities is scantly scattered throughout. Nontender to palpate no pruritus. No exudate, no induration, no flight area of fluctuance. NEURO: awake, alert, and oriented to person, place and time. There were no obvious focal neurologic abnormalities. EXTREMITIES: No joint tenderness, effusion, or edema noted. Course Course Emergency Course: Portions of this record may have been created with voice recognition software Level of Care: Express Care Visit Vital Signs Vital signs: Vital Signs Temperature 98.0 F 10/27/24 10:30 Pulse Rate 72 10/27/24 10:30 Respiratory Rate 18 10/27/24 10:30 Blood Pressure 150/66 H 10/27/24 10:30 Pulse Oximetry 96 10/27/24 10:30 Oxygen Delivery Room Air 10/27/24 10:30 Temperature 98.0 F 10/27/24 10:30 Pulse Rate 72 10/27/24 10:30 Respiratory Rate 18 10/27/24 10:30 Blood Pressure 150/66 H 10/27/24 10:30 Pulse Oximetry 96 10/27/24 10:30 Oxygen Delivery Room Air 10/27/24 10:30 Reviewed MDM - Skin/Abscess/Foreign Bdy MDM Narrative Medical decision making narrative: Patient likely has chigger bites given his other history walking in the manuel. Will prescribe triamcinolone cream. Discussed physical exam findings. Advised supportive measures and signs/symptoms to go to the ER. Pt is appropriate for outpt treatment and f/u. Differential Diagnosis Differential diagnosis: Likely insect bites, contact dermatitis and other (Vasculitis) Critical Care Time Critical Care Time Critical Care Time: No Discharge Plan Discharge Clinical Impression: Chigger bites Patient Disposition: Home Condition: Stable Instructions: Antibiotic Form, Chigger Bite (ED) Additional Instructions: Use the triamcinolone cream as directed. Apply only to the affected area. Wash your skin thoroughly with mild soap and water. Clothing worn when you were exposed to chiggers need to be washed and hot water. The rash normally resolves in 1-2 weeks. You may use calamine lotion, camphor,, Benadryl cream as needed for itchiness symptoms. You may also take Zyrtec or Claritin as needed for allergy or itchiness symptoms. Follow-up PCP in 3-5 days. If you develop any worsening redness, pain, swelling, discharge, fevers, breathing problems, or any other concerns please go to the ER immediately. Patient Language: [place] Islander Prescriptions: New triamcinolone acetonide 0.1 % cream 1 applic topical BID 7 Days Qty: 15 0RF No Action duloxetine 30 mg capsule,delayed release(DR/EC) 30 mg PO .every other day albuterol sulfate [Ventolin HFA] 90 mcg/actuation HFA aerosol inhaler 1 inh inhalation Q4H PRN (Reason: shortness of breath or wheezing) Qty: 6.7 0RF aspirin [Adult Low Dose Aspirin] 81 mg tablet,delayed release (DR/EC) 81 mg PO DAILY Qty: 90 4RF bupropion HCl [Wellbutrin XL] 150 mg tablet extended release 24 hr 150 mg PO QAM Ingrezza 40 mg capsule 40 mg PO DAILY magnesium glycinate 400 mg PO QHS Ozempic 0.25 mg or 0.5 mg (2 mg/3 mL) pen injector 0.25 mg subcut WEEKLY Qty: 3 0RF Rx Instructions: for 4 weeks mirabegron [Myrbetriq] 50 mg tablet extended release 24 hr 50 mg PO DAILY olanzapine 10 mg tablet 10 mg PO QHS rosuvastatin [Crestor] 10 mg tablet 10 mg PO DAILY Qty: 90 3RF lutein 20 mg tablet 20 mg PO DAILY Rx Instructions: give with meal/snack celecoxib [Celebrex] 200 mg capsule 200 mg PO DAILY Qty: 30 0RF trazodone 50 mg tablet 50 mg PO QHS PRN (Reason: Sleep) cholecalciferol (vitamin D3) 1,250 mcg (50,000 unit) capsule 1,250 mcg PO WEEKLY Qty: 13 2RF Rx Instructions: Pt states she takes medication on wednesdays tiotropium bromide [Spiriva with HandiHaler] 18 mcg capsule, w/inhalation device 1 cap inhalation DAILY Qty: 90 3RF Rx Instructions: puncture 1 cap using device; one dose = 2 inhalations levothyroxine 50 mcg tablet See Rx Instructions .ROUTE .COMPLEX Qty: 100 2RF Dose Instruction: TAKE 1 TABLET BY MOUTH DAILY Rx Instructions: TAKE 1 TABLET BY MOUTH DAILY pantoprazole 40 mg tablet,delayed release (DR/EC) See Rx Instructions .ROUTE .COMPLEX Qty: 100 0RF Dose Instruction: TAKE 1 TABLET BY MOUTH DAILY Rx Instructions: TAKE 1 TABLET BY MOUTH DAILY Follow-up/Referrals: Nguyen Mccabe DO [Primary Care Provider] - Time of Disposition: 10:42
== END 2024-10-27 10:52 | disposition home or self-care (01) ==
PROVIDERS: PCP Family Medicine
DX: B88.0 Other acariasis (principal); I10 Essential (primary) hypertension; J44.9 Chronic obstructive pulmonary disease, unspecified; H40.9 Unspecified glaucoma; E03.9 Hypothyroidism, unspecified; M48.00 Spinal stenosis, site unspecified; M17.11 Unilateral primary osteoarthritis, right knee; K21.9 Gastro-esophageal reflux disease without esophagitis; M81.0 Age-related osteoporosis without current pathological fracture; G62.9 Polyneuropathy, unspecified; G24.01 Drug induced subacute dyskinesia; E66.01 Morbid (severe) obesity due to excess calories; Z68.36 Body mass index [BMI] 36.0-36.9, adult; F41.9 Anxiety disorder, unspecified; F32.A Depression, unspecified; Z87.891 Personal history of nicotine dependence; Z79.82 Long term (current) use of aspirin
CPT/HCPCS: 99213; G0463

== ENCOUNTER 2024-12-14 11:02 | Emergency (ER) | payer MEDICARE, SELFPAY ==
[2024-12-14] VITALS (14 sets, daily range): BP systolic 113–175; BP diastolic 69–89; PULSE 76–84; RESP 15–33; TEMP 36.8; O2SAT 92–100
--- NOTE | ~2024-12-14 | XR_ITS ---
Examination: XR chest 2V Clinical History: cp SINCE LAST NIGHT Comparison: X-rays 05/29/2024 Technique: PA and Lateral Findings: Cardiomediastinal silhouette normal size and configuration. Lungs clear. No acute bony abnormality. Osteopenia. IMPRESSION: 1. No acute cardiopulmonary findings. Reviewed, dictated and finalized at location R.
--- OUTSIDE RECORDS SUMMARY | 2024-12-14 11:06 | XMS_ITS | Clinical Summary ---
Author Organization [facility] Address [address] [place] [address] Care Team Providers Care Silo Painter Name Role Phone Unavailable Primary Care Provider [...] COVID-19 Vaccine ( - 2023-2 5 season) 2024 Meningococcal B Vaccine Aged Out No l onger eligible based on patient's age to complete this topic Meningococcal Vaccine Aged Out No mic javier eligible based on patient's age to complete this topic RSV Immunizations Under 20 Months Aged Out No longer eligible based on patient's age to complete this topic Advance Directives Documents on File Type Date Recorded Patient Signal Constructor Expl 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 Directives and Living Will 04/08/2016 12:00 AM [facility]
--- OUTSIDE RECORDS SUMMARY | 2024-12-14 11:06 | XMS_ITS | Clinical Summary ---
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 Gender Identity Not on file Sexual Orientation Not on file Obstetrics History Last Filed Vital Signs Vital Sign Reading Time Taken Comments Blood Pressure 121/68 07/23/2016 8:08 AM CDT Pulse 52 07/23/2016 8:08 AM CDT Temperature - - Respiratory Rate - - Oxygen Saturation 98% 07/23/2016 8:06 AM CDT Inhaled Oxygen Concentration - - Weight 65.3 kg (144 lb) 02/08/2018 10:16 AM GAME MASTER Height 157.5 cm (5' 2) 02/08/2018 10:16 AM GAME MASTER Body Mass Index 26.34 02/08/2018 10:16 AM GAME MASTER Plan of Treatment Not on file Insurance [facility] MEDICARE [facility] Address: [facility] [address] [place] [address] [facility] MEDICARE ADVANTAGE [facility] Address: [address] [address] Care Teams Cinder Pitman Relationship Specialty Start Date End Date Wing Carrasco MD PCP - General 12/12/15
--- OUTSIDE RECORDS SUMMARY | 2024-12-14 11:06 | XMS_ITS | Encounter Summary ---
Author Organization [employer] Address 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
--- OUTSIDE RECORDS SUMMARY | 2024-12-14 11:06 | XMS_ITS | Clinical Summary ---
Author Organization [facility] Address [address], [address] [address] Phone Care Team Providers Care Land Checker Name Role Phone Wing Carrasco MD Primary Care Provider + Shirin Renner MD Unavailable [phone] Sonu Fernandez DO Unavailable [phone] Allergies Active Allergy Reactions Criticality Noted [...] Take 400 Units by mouth daily. Active [place]-3 Fatty Acids (OMEGA-3 FISH OIL) 1000 MG [...] Covid-19 Vaccine, Vector-nr, Rs-ad26, Pf, 0.5 Ml ([employer]) 05/26/2020 Family History Medical History Relation Name [...] (5 0+ years) (2 of 2 - PCV20 or PCV21) 04/09/2017 04/09/2016 Respiratory Syncytial Virus (RSV) Immunization (Adult) (1 - 1-dose 75+ series) 2018 Influenza Immunization (#1) 2024 12/26/2014 SARS-COV-2 Immunization (3 - season) 2024 02/05/2021, 05/26/2020 Pneumococcal Immunization Combined Discontinued 04/09/2016 [...] age to complete this topic Care Teams Land Checker Relationship Specialty Start Date End Date Wing Carrasco MD PCP - General Family Medicine 02/09/16 Shirin Renner MD [address] [facility] [address] [place] [id number] Internal Medicine 02/11/16 Sonu Fernandez DO [address] [facility] [address] [place] [address] Gastroenterology 02/11/16
--- OUTSIDE RECORDS SUMMARY | 2024-12-14 11:06 | XMS_ITS | Clinical Summary ---
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
--- OUTSIDE RECORDS SUMMARY | 2024-12-14 11:06 | XMS_ITS | Encounter Summary ---
Author Organization [employer] Address [address] [place] [address] Care Team Providers Care Apparel Manufacture Instructor Name Role Phone Unavailable Primary Care Provider Unavailabl e Encounter Details Date Type Department Care Team (Late st Contact Info) Description 06/10/2003 Outpatient Historical [facility] [address] [place], [place] [id number] Mark Anthony Acosta DO NO ADDRESS ON FILE Social History Tobacco Use Types Packs/Day Years Used Date Smoking Tobacco: Never Assessed Comments Unknown Sex and Gender Information Value Date Recorded Sex Assigned at Not on file Legal Sex Female 3:18 AM CREPE SOLE SCOURER Gender Identity Not on file Sexual Orientation Not on file documented as of this encounter Plan of Treatment Not on file documented as of this encounter Visit Diagnoses Not on filedocumented in this encounter
--- NOTE | 2024-12-14 11:12 | ECG_ITS ---
Test Date: 2024-12-14 11:17:35 Measurements Intervals [place] Rate: 77 P: 61 NM: 149 QRS: 77 QRSD: 145 T: 24 QT: 400 QTc: 453 Interpretive Statements SINUS RHYTHM RIGHT BUNDLE BRANCH BLOCK [120+ ms QRS DURATION, UPRIGHT V1, 40+ ms S IN I/aVL/V4/V5/V6] Compared to ECG 02/15/2024 14:12:05 No significant changes Electronically Signed On 12-14-2024 20:07:36 CDT by Zaheer Chowdhury M.D.
[2024-12-14] MEDS: ASPIRIN 81 MG CHEWABLE TABLET 324 MG PO (11:16)
[2024-12-14 11:22] LABS: Hematocrit 41.3 % (37.0-47.0); Hemoglobin 14.0 g/dL (12.0-15.0); Immature Granulocyte Percent A 0.5 % (0-0.5); Lymphocytes Absolute Auto 2.20 K/mm3 (0.9-3.2); Mean Corpuscular HGB Conc 33.9 g/dl (32-36); Mean Corpuscular Hemoglobin 29.8 pg (26-34); Mean Corpuscular Volume 87.9 fl (80-100); Nucleated Red Blood Cells Absolute Auto 0.000 K/mm3 (0.0-0.012); Nucleated Red Blood Cells Perc 0.0 % (0.0-0.2); Platelet Count Result 165 k/mm3 (150-375); Red Blood Count 4.70 M/mm3 (4.2-5.4); White Blood Count 11.1 K/mm3 (4.5-10.0)
[2024-12-14 11:38] LABS: Alanine Aminotransferase 26 U/L (6-35); Albumin Level 4.2 g/dL (3.5-5.1); Alkaline Phosphatase 88 U/L (38-126); Anion Gap 8 mmol/L (4-12); Aspartate Amino Transferase 36 U/L (14-36); Bilirubin,Total 0.5 mg/dL (0.2-1.3); Blood Urea Nitrogen 18 mg/dL (7-17); Calcium 9.4 mg/dL (8.4-10.2); Carbon Dioxide 27 mmol/L (22-30); Chloride 103 mmol/L (98-107); Estimated CRCL calculation 51 ml/min; Estimated Glomerular Filt Rate > 60; Glucose 95 mg/dL (65-110); Lipase 93 U/L (23-300); Potassium 4.1 mmol/L (3.4-5.0); Sodium 138 mmol/L (137-145); Total Protein 7.1 g/dL (6.3-8.2)
[2024-12-14 11:39] LABS: INR 1.1; Prothrombin Time 14.6 Seconds (11.1-14.7)
[2024-12-14 11:41] LABS: Partial Thromboplastin Time 27.9 Seconds (22.3-36.8)
[2024-12-14 11:45] LABS: Troponin I < 0.012 ng/mL (0.000-0.034)
--- NOTE | 2024-12-14 12:16 | ED.GENADULT ---
HPI - General Adult General Chief complaint: Chest Pain Stated complaint: Chest pain Time Seen by Provider: 12/14/24 11:20 History of Present Illness HPI narrative: 79-year-old female presents to the emergency department for evaluation for multiple weight complaints. Patient states she began having some left-sided abdominal pain yesterday that is worsened with certain ranges of movement. Patient then also began developing some worsening nausea last night. Patient states he does get this nausea and epigastric pain intermittently but typically it is helped with Tums. Patient states that time she took last night did not help. Patient did have follow-up with her primary care physician today and due to EKG changes she was referred to the emergency department. EKG repeated at our facility is very similar to her previous with no evidence of acute STEMI. Patient does have an underlying right bundle-branch block. Related Data Home Medications ?Medication ?Instructions ?Recorded ?Confirmed ?Last Taken ?Type trazodone 50 mg tablet 50 mg PO QHS PRN Sleep 05/04/21 12/14/24 02/14/24 20:00 History duloxetine 30 mg capsule,delayed 30 mg PO .every other day 09/16/23 12/14/24 02/14/24 09:00 History release olanzapine 10 mg tablet 10 mg PO QHS 02/14/24 12/14/24 02/14/24 19:00 History lutein 20 mg tablet 20 mg PO DAILY 05/31/24 12/14/24 Unknown History bupropion HCl 150 mg 24 hr tablet, 150 mg PO QAM 07/03/24 12/14/24 Unknown History extended release (Wellbutrin XL) magnesium glycinate PO QHS 09/27/24 12/14/24 Unknown History valbenazine 40 mg capsule 40 mg PO DAILY 09/27/24 12/14/24 Unknown History (Ingrezza) mirabegron 50 mg tablet,extended 50 mg PO DAILY 10/18/24 12/14/24 Unknown History release 24 hr (Myrbetriq) Allergies Allergy/AdvReac Type Severity Reaction Status Date / Time clonazepam Allergy Unknown Unknown Verified 12/14/24 11:14 diphenhydramine Allergy Unknown Unknown Verified 12/14/24 11:14 hydroxyzine Allergy Unknown Unknown Verified 12/14/24 11:14 prednisone Allergy Unknown MAKES Verified 12/14/24 11:14 PATIENT MANIC zolpidem Allergy Unknown Unknown Verified 12/14/24 11:14 antihistamin AdvReac Unknown Hyperactive Uncoded 12/14/24 10:22 Review of Systems Review of Systems: All systems reviewed & are unremarkable except as noted in HPI and below PMFSH Past Medical History Medical History Class 2 severe obesity with serious comorbidity and body mass index (BMI) of 37.0 to 37.9 in adult Tardive dyskinesia Peripheral neuropathy Peripheral neuropathy Osteoporosis Anxiety GERD (gastroesophageal reflux disease) Unilateral primary osteoarthritis, right knee Sciatica of left side Stress incontinence Spinal stenosis DISH (diffuse idiopathic skeletal hyperostosis) cxr 08/2017 Depression Bipolar disorder Schizophrenia Hypothyroid Finger fracture Fibroids IBS (irritable bowel syndrome) Sleep apnea COPD (chronic obstructive pulmonary disease) CPAP (continuous positive airway pressure) dependence HTN (hypertension) Glaucoma Fuchs' corneal dystrophy Surgical History Surgical History History of sinus surgery (07/2023) Balloon sinuuloplasty H/O breast surgery fibroid/lump Right breast 1999 History of cholecystectomy 01/2016 History of hemorrhoidectomy History of rectal surgery rectal prolapse repair History of discectomy History of laminectomy 2016 History of bladder surgery urethra tied up for stress incontinence H/O bilateral oophorectomy partial History of appendectomy Family History Family History Sibling Depression Heart disease Diabetes mellitus Father Diabetes mellitus Mother Oral cancer Grandparent CAD (coronary artery disease) Other Arthritis Hypertension Neuropathy Social History Social History Years smoked: 30 Smoking status: Former smoker Tobacco type: cigarettes Smoking end date: 05/17/97 Alcohol intake: former Substance use: never Substance use type: does not use Do You Feel Safe in your Home?: Yes Lack of Transportation: No Lack of Food: Never True Current Housing: I Have Housing Concerned About Future Housing: No Difficulty Paying Gas/Electric Bills: No Difficulty Paying for Meds: No Currently Unemployed: No Education: Bachelor's Degree Difficulty w/ Childcare or Family Care: No Living arrangements: alone Occupation/Education: unemployed Gender identity (if verbalized by the patient): Female Sexual Orientation (if Verbalized by the Patient): Straight or Heterosexual Spiritual care concerns: No Agree to blood products: Yes Exam Narrative: APPEARANCE: Well appearing, no pain, no distress, well-nourished. HEAD: normocephalic, atraumatic. EYES: PERRLA/EOMI, conjunctivae clear. NOSE: Normal no drainage EARS:TMS clear with good light reflex. THROAT: Pharynx clear, no exudate. NECK: Supple. No adenopathy, no masses. RESPIRATORY: Airway patent, respirations nonlabored. Clear to auscultation bilaterally, no rales, rhonchi, wheezing. CARDIOVASCULAR: Regular rate and rhythm without murmurs rubs or gallops. ABDOMINAL: Soft, nontender, nondistended, normal bowel sounds MUSCULOSKELETAL: Moves all extremities. Strength/ROM intact, No edema, No calf tenderness. NEURO: Alert. Cranial nerves II through XII intact. Good gait. Good coordination SKIN: Warm, dry. Normal Color Course Vital Signs Vital signs: Vital Signs Pulse Rate 80 12/14/24 11:10 Respiratory Rate 20 12/14/24 11:10 Pulse Oximetry 95 12/14/24 11:10 Temperature 98.2 F 12/14/24 11:12 Pulse Rate 76 12/14/24 14:49 Respiratory Rate 16 12/14/24 14:49 Blood Pressure 113/69 12/14/24 14:49 Pulse Oximetry 98 12/14/24 14:49 Medical Decision Making [facility] Narrative Medical decision making narrative: 79-year-old female presented emergency department for evaluation for multiple complaints. Patient reports she did feel improved with the GI cocktail. Patient reports her left arm pain is worsened with movement and does not appear to be referred cardiac pain. Patient did have negative serial EKGs. Patient was afebrile but does have a leukocytosis of 11.1. No significant acute mallet is on her CMP. Chest x-ray shows no acute cardiopulmonary abnormality. EKG showed normal sinus rhythm. Patient family are comfortable plan for discharge and close follow-up. Differential Diagnosis Differential Diagnosis: Muscular strain, arthritis, gastritis, ACS Vital Signs Vital Signs: Vital Signs Pulse Rate 80 12/14/24 11:10 Respiratory Rate 20 12/14/24 11:10 Pulse Oximetry 95 12/14/24 11:10 Temperature 98.2 F 12/14/24 11:12 Pulse Rate 76 12/14/24 14:49 Respiratory Rate 16 12/14/24 14:49 Blood Pressure 113/69 12/14/24 14:49 Pulse Oximetry 98 12/14/24 14:49 Lab Data Lab results reviewed: Yes I reviewed the patient's lab results. 12/14/24 11:16 12/14/24 11:16 Labs: Lab Results 12/14/24 12/14/24 Range/Units 11:16 13:55 WBC 11.1 H (4.5-10.0) K/mm3 RBC 4.70 (4.2-5.4) M/mm3 Hgb 14.0 (12.0-15.0) g/dL Hct 41.3 (37.0-47.0) % MCV 87.9 (80-100) fl MCH 29.8 (26-34) pg MCHC 33.9 (32-36) g/dl RDW 13.8 (11.5-14.5) % Plt Count 165 (150-375) k/mm3 MPV 10.3 (7.4-10.4) fl Immature Gran % (Auto) 0.5 (0-0.5) % Neut % (Auto) 67.7 (45.5-73.1) % Lymph % (Auto) 19.7 (18.3-44.2) % [place] % (Auto) 7.8 (2.6-8.5) % Eos % (Auto) 3.6 (0-4.4) % Baso % (Auto) 0.7 (0.2-1.2) % Lymph # (Auto) 2.20 (0.9-3.2) K/mm3 [place] # (Auto) 0.9 H (0.1-0.6) K/mm3 Eos # (Auto) 0.4 H (0-0.3) K/mm3 Baso # (Auto) 0.1 (0.0-0.1) K/mm3 Abs Immat Gran (auto) 0.06 H (0.00-0.031) K/mm3 Absolute Neuts (auto) 7.5 H (1.3-6.7) K/mm3 Absolute Nucleated RBC 0.000 (0.0-0.012) K/mm3 Nucleated RBC % 0.0 (0.0-0.2) % PT 14.6 (11.1-14.7) Seconds INR 1.1 APTT 27.9 (22.3-36.8) Seconds Sodium 138 (137-145) mmol/L Potassium 4.1 (3.4-5.0) mmol/L Chloride 103 (98-107) mmol/L Carbon Dioxide 27 (22-30) mmol/L Anion Gap 8 (4-12) mmol/L BUN 18 H (7-17) mg/dL Creatinine 0.84 (0.7-1.0) mg/dL Estim Creat Clear Calc 51 ml/min Estimated GFR > 60 (59 - ) Glucose 95 (65-110) mg/dL Calcium 9.4 (8.4-10.2) mg/dL Total Bilirubin 0.5 (0.2-1.3) mg/dL AST 36 (14-36) U/L ALT 26 (6-35) U/L Alkaline Phosphatase 88 (38-126) U/L Troponin I < 0.012 < 0.012 (0.000-0.034) ng/mL Total Protein 7.1 (6.3-8.2) g/dL Albumin 4.2 (3.5-5.1) g/dL Lipase 93 (23-300) U/L Imaging Data Radiologist's impression: Impressions Chest X-Ray 12/14/24 12:22 IMPRESSION: 1. No acute cardiopulmonary findings. Discharge Plan Discharge Clinical Impression: Arm pain, Acute epigastric pain Patient Disposition: Home Condition: Stable Instructions: Antibiotic Form Additional Instructions: Have close follow-up with primary care physician for additional outpatient cardiac testing. If you have any worsening symptoms then please call or return to the emergency department. Patient Language: American Prescriptions: No Action triamcinolone acetonide 0.1 % cream 1 applic topical BID 7 Days Qty: 15 0RF duloxetine 30 mg capsule,delayed release(DR/EC) 30 mg PO .every other day albuterol sulfate [Ventolin HFA] 90 mcg/actuation HFA aerosol inhaler 1 inh inhalation Q4H PRN (Reason: shortness of breath or wheezing) Qty: 6.7 0RF aspirin [Adult Low Dose Aspirin] 81 mg tablet,delayed release (DR/EC) 81 mg PO DAILY Qty: 90 4RF bupropion HCl [Wellbutrin XL] 150 mg tablet extended release 24 hr 150 mg PO QAM Ingrezza 40 mg capsule 40 mg PO DAILY magnesium glycinate 400 mg PO QHS mirabegron [Myrbetriq] 50 mg tablet extended release 24 hr 50 mg PO DAILY olanzapine 10 mg tablet 10 mg PO QHS rosuvastatin [Crestor] 10 mg tablet 10 mg PO DAILY Qty: 90 3RF lutein 20 mg tablet 20 mg PO DAILY Rx Instructions: give with meal/snack celecoxib [Celebrex] 200 mg capsule 200 mg PO DAILY Qty: 30 0RF trazodone 50 mg tablet 50 mg PO QHS PRN (Reason: Sleep) cholecalciferol (vitamin D3) 1,250 mcg (50,000 unit) capsule 1,250 mcg PO WEEKLY Qty: 13 2RF Rx Instructions: Pt states she takes medication on wednesdays tiotropium bromide [Spiriva with HandiHaler] 18 mcg capsule, w/inhalation device 1 cap inhalation DAILY Qty: 90 3RF Rx Instructions: puncture 1 cap using device; one dose = 2 inhalations levothyroxine 50 mcg tablet See Rx Instructions .ROUTE .COMPLEX Qty: 100 2RF Dose Instruction: TAKE 1 TABLET BY MOUTH DAILY Rx Instructions: TAKE 1 TABLET BY MOUTH DAILY pantoprazole 40 mg tablet,delayed release (DR/EC) See Rx Instructions .ROUTE .COMPLEX Qty: 100 2RF Dose Instruction: TAKE 1 TABLET BY MOUTH DAILY Rx Instructions: TAKE 1 TABLET BY MOUTH DAILY Ozempic 0.25 mg or 0.5 mg (2 mg/3 mL) pen injector See Rx Instructions .ROUTE .COMPLEX Qty: 3 11RF Dose Instruction: INJECT SUBCUTANEOUSLY 0.5 MG EVERY WEEK Rx Instructions: INJECT SUBCUTANEOUSLY 0.5 MG EVERY WEEK Follow-up/Referrals: Nguyen Mccabe DO [Primary Care Provider, Family Practice]
[2024-12-14] MEDS: PANTOPRAZOLE SODIUM IV 40 MG VIAL IV PUSH (12:30)
[2024-12-14] MEDS: ACETAMINOPHEN 500 MG TABLET 1000 MG PO (12:31)
--- NOTE | 2024-12-14 12:37 | PC.NURSE ---
When going into room to give pt GI cocktail pt is eating a granola bar with no c/o.
--- NOTE | 2024-12-14 13:49 | ECG_ITS ---
Test Date: 2024-12-14 14:01:37 Measurements Intervals [place] Rate: 69 P: 63 NV: 147 QRS: 78 QRSD: 146 T: 35 QT: 409 QTc: 438 Interpretive Statements SINUS RHYTHM RIGHT BUNDLE BRANCH BLOCK [120+ ms QRS DURATION, UPRIGHT V1, 40+ ms S IN I/aVL/V4/V5/V6] Compared to ECG 12/14/2024 11:17:35 No significant changes Electronically Signed On 12-14-2024 20:03:17 CDT by Zaheer Chowdhury M.D.
[2024-12-14 14:35] LABS: Troponin I < 0.012 ng/mL (0.000-0.034)
== END 2024-12-14 14:50 | disposition home or self-care (01) ==
PROVIDERS: Emergency Provider Emergency Medicine; PCP Family Medicine
DX: R10.13 Epigastric pain (principal); M79.602 Pain in left arm; D72.829 Elevated white blood cell count, unspecified
CPT/HCPCS: 36415; 71046; 80053; 83690; 84484; 85025; 85610; 85730; 93005; 96374; 99284; A9270; J2470

== ENCOUNTER 2024-12-18 11:39 | Emergency (ER) | payer MEDICARE, SELFPAY ==
--- NOTE | ~2024-12-18 | CT_ITS ---
Exam: CT chest without contrast Clinical History: [Fall. Left rib pain. Possible fractures ] Comparison: [ ] Technique: Multiple axial CT images of the chest without with IV contrast. Sagittal and coronal reformatted images were obtained. FINDINGS: Lungs and pleura: [ No pneumothorax. No pleural effusion. No focal pulmonary consolidation. Small patchy, reticular and bandlike opacities in the lower lungs, greater on the right.] Mediastinum and pulmonary dian: [ No mass or adenopathy.] Axillary/intramammary and supraclavicular: [ No mass or adenopathy.] Heart and great vessels: [ Normal heart size.[ [ No pericardial effusion.] [ No aneurysm.] There are coronary artery calcifications. Chest Wall: [ Unremarkable.] Upper Abdomen: [ No significant findings.] Osseous structures: [ No acute fracture.] [ Multilevel degenerative change in the visualized spine.] Bones appear osteopenic. Additional findings: Cholecystectomy clips are present. IMPRESSION: 1. Small patchy, reticular and bandlike opacities in the lower lungs, greater on the right.] Differential includes atelectasis/scarring or infiltrates. 2. No CT evidence for a rib fracture at this time. If symptoms persist or worsen, consider a short-term follow-up study or additional imaging for further assessment. Reviewed, dictated and finalized at location Q. IMPRESSION: 1. Small patchy, reticular and bandlike opacities in the lower lungs, greater o n the right.] Differential includes atelectasis/scarring or infiltrates. 2. No CT evidence for a rib fracture at this time. If symptoms persist or worsen, consider a short-term follow-up study or additio nal imaging for further assessment.
[2024-12-18 11:45] VITALS: BP 133/71; PULSE 83; RESP 16; TEMP 36.9; O2SAT 95
--- OUTSIDE RECORDS SUMMARY | 2024-12-18 11:58 | XMS_ITS | Clinical Summary ---
Author Organization [facility] Address [address] [place] [address] Care Team Providers Care Web Site Specialist Name Role Phone Unavailable Primary Care [...] Vaccine ( - 2023-2 5 season) 2024 Influenza Adult (#1) 2024 Meningococcal B Vaccine Aged Out No l onger eligible based on patient's age to complete this topic Meningococcal Vaccine Aged Out No mic javier eligible based on patient's age to complete this topic RSV Immunizations Under 20 Months Aged Out No longer eligible based on patient's age to complete this topic Advance Directives Documents on File Type Date Recorded 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
--- OUTSIDE RECORDS SUMMARY | 2024-12-18 11:58 | XMS_ITS | Encounter Summary ---
Author Organization [employer] Address 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
--- OUTSIDE RECORDS SUMMARY | 2024-12-18 11:58 | XMS_ITS | Clinical Summary ---
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
--- OUTSIDE RECORDS SUMMARY | 2024-12-18 11:58 | XMS_ITS | Clinical Summary ---
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 Gender Identity Not on file Sexual Orientation Not on file Obstetrics History Last Filed Vital Signs Vital Sign Reading Time Taken Comments Blood Pressure 121/68 07/23/2016 8:08 AM CDT Pulse 52 07/23/2016 8:08 AM CDT Temperature - - Respiratory Rate - - Oxygen Saturation 98% 07/23/2016 8:06 AM CDT Inhaled Oxygen Concentration - - Weight 65.3 kg (144 lb) 02/08/2018 10:16 AM HARNESS AND BAG INSPECTOR Height 157.5 cm (5' 2) 02/08/2018 10:16 AM HARNESS AND BAG INSPECTOR Body Mass Index 26.34 02/08/2018 10:16 AM HARNESS AND BAG INSPECTOR Plan of Treatment Not on file Insurance [facility] MEDICARE ADVANTAGE [facility] MEDICARE ADVANTAGE Care Teams Recruitment Director Relationship Specialty Start Date End Date Wing Carrasco MD PCP - General 12/12/15
--- OUTSIDE RECORDS SUMMARY | 2024-12-18 11:58 | XMS_ITS | Clinical Summary ---
Author Organization [facility] Address [address] [place], [address] [address] Phone Care Team Providers Care It Desktop Support Specialist Name Role Phone Wing Carrasco MD Primary Care Provider + Shirin Renner MD Unavailable [phone] Sonu Fernandez DO Unavailable [phone] Allergies Active Allergy Reactions Criticality Noted [...] Take 400 Units by mouth daily. Active [place]-3 Fatty Acids (OMEGA-3 FISH OIL) 1000 MG [...] Covid-19 Vaccine, Vector-nr, Rs-ad26, Pf, 0.5 Ml ([email or web address]) 05/26/2020 Family History Medical History Relation Name [...] age to complete this topic Care Teams It Desktop Support Specialist Relationship Specialty Start Date End Date Wing Carrasco MD PCP - General Family Medicine 02/09/16 Shirin Renner MD [address] [facility] [address] [place] [address] Internal Medicine 02/11/16 Sonu Fernandez DO [address] [facility] [address] [place] [address] Gastroenterology 02/11/16
--- OUTSIDE RECORDS SUMMARY | 2024-12-18 11:58 | XMS_ITS | Encounter Summary ---
Author Organization [employer] Address 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
--- NOTE | 2024-12-18 12:15 | ED.FALL ---
HPI - Fall General Chief Complaint: Fall Stated Complaint: fall tuesday, pain to L ribs Time Seen by Provider: 12/18/24 12:04 Source: patient and family Mode of arrival: ambulatory Limitations: no limitations History of Present Illness HPI Narrative: Do an 79-year-old female with history of bipolar disorder, schizoaffective, hypothyroidism who presents to the ED for 0408 left rib pain. Patient states that 2 days ago, she was walking home when she tripped on a nail and fell onto her left side hitting a table to her left flank/ribs. She has had pain to her ribs since then. She has had difficulty taking deep breaths due to the pain. She saw her PCP this morning who advised her to come to the ED for further evaluation. Denies having her head, lost consciousness. She is not on any blood thinners. Related Data Home Medications ?Medication ?Instructions ?Recorded ?Confirmed ?Last Taken ?Type trazodone 50 mg tablet 50 mg PO QHS PRN Sleep 05/04/21 12/18/24 02/14/24 20:00 History duloxetine 30 mg capsule,delayed 30 mg PO .every other day 09/16/23 12/18/24 02/14/24 09:00 History release olanzapine 10 mg tablet 10 mg PO QHS 02/14/24 12/18/24 02/14/24 19:00 History lutein 20 mg tablet 20 mg PO DAILY 05/31/24 12/18/24 Unknown History bupropion HCl 150 mg 24 hr tablet, 150 mg PO QAM 07/03/24 12/18/24 Unknown History extended release (Wellbutrin XL) magnesium glycinate PO QHS 09/27/24 12/18/24 Unknown History Allergies Allergy/AdvReac Type Severity Reaction Status Date / Time clonazepam Allergy Unknown Unknown Verified 12/18/24 11:49 diphenhydramine Allergy Unknown Unknown Verified 12/18/24 11:49 hydroxyzine Allergy Unknown Unknown Verified 12/18/24 11:49 prednisone Allergy Unknown MAKES Verified 12/18/24 11:49 PATIENT MANIC zolpidem Allergy Unknown Unknown Verified 12/18/24 11:49 antihistamin AdvReac Unknown Hyperactive Uncoded 12/18/24 09:33 Review of Systems Review of Systems: Gen.: Denies fevers or chills Eyes: Denies eye pain or visual change ENT: Denies congestion Respiratory: As per HPI CV: As per HPI GI: Denies abdominal pain nausea, emesis or diarrhea denies burning, urgency, frequency or hematuria Musculoskeletal: Denies back pain or muscle pain Neuro: Denies numbness, tingling, weakness or focal weakness Skin: Denies rash Except as documented, all other systems reviewed and negative PMF Past Medical History Medical History BMI over 35 Class 2 severe obesity with serious comorbidity and body mass index (BMI) of 37.0 to 37.9 in adult Tardive dyskinesia Peripheral neuropathy Peripheral neuropathy Osteoporosis Anxiety GERD (gastroesophageal reflux disease) Unilateral primary osteoarthritis, right knee Sciatica of left side Stress incontinence Spinal stenosis DISH (diffuse idiopathic skeletal hyperostosis) cxr 08/2017 Depression Bipolar disorder Schizophrenia Hypothyroid Finger fracture Fibroids IBS (irritable bowel syndrome) Sleep apnea COPD (chronic obstructive pulmonary disease) CPAP (continuous positive airway pressure) dependence HTN (hypertension) Glaucoma Fuchs' corneal dystrophy Surgical History Surgical History History of sinus surgery (07/2023) Balloon sinuuloplasty H/O breast surgery fibroid/lump Right breast 1999 History of cholecystectomy 01/2016 History of hemorrhoidectomy History of rectal surgery rectal prolapse repair History of discectomy History of laminectomy 2016 History of bladder surgery urethra tied up for stress incontinence H/O bilateral oophorectomy partial History of appendectomy Family History Family History Sibling Depression Heart disease Diabetes mellitus Father Diabetes mellitus Mother Oral cancer Grandparent CAD (coronary artery disease) Other Arthritis Hypertension Neuropathy Social History Social History Years smoked: 30 Smoking status: Former smoker Tobacco type: cigarettes Second hand tobacco smoke exposure: Yes Smoking end date: 05/17/97 Alcohol intake: former Substance use: never Substance use type: does not use Do You Feel Safe in your Home?: Yes Lack of Transportation: No Lack of Food: Never True Current Housing: I Have Housing Concerned About Future Housing: No Difficulty Paying Gas/Electric Bills: No Difficulty Paying for Meds: No Currently Unemployed: No Education: Bachelor's Degree Difficulty w/ Childcare or Family Care: No Living arrangements: alone 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 CARDIOVASCULAR: Regular rate and rhythm without murmurs rubs or gallops. Chest wall: Tenderness to palpation to the left mid axillary lower rib margin with overlying ecchymosis. Pain worse with deep inspirations. No flail segment. No crepitus. ABDOMINAL: Soft, nontender, nondistended, no rebound or guarding MUSCULOSKELETAl: Moves all extremities. No clubbing, cyanosis or edema. NEURO: Awake and alert. Following commands, speech normal, no focal deficits SKIN:: Warm, dry. No rashes lesions or abrasions PSYCHIATRIC: Normal affect/mood, Course Vital Signs Vital signs: Vital Signs Temperature 98.5 F 12/18/24 11:45 Pulse Rate 83 12/18/24 11:45 Respiratory Rate 16 12/18/24 11:45 Blood Pressure 133/71 12/18/24 11:45 Pulse Oximetry 95 12/18/24 11:45 Oxygen Delivery Room Air 12/18/24 11:45 Temperature 98.5 F 12/18/24 11:45 Pulse Rate 78 12/18/24 12:45 Respiratory Rate 20 12/18/24 12:45 Blood Pressure 135/72 12/18/24 12:45 Pulse Oximetry 94 12/18/24 12:45 Oxygen Delivery Room Air 12/18/24 11:45 MDM - Fall MDM Narrative Medical decision making narrative: 79-year-old female presenting for rib pain. On initial evaluation, patient was mild distress, afebrile, hemodynamically stable. She did have tenderness and ecchymosis over the left mid axillary lower rib margin. CT chest showed no evidence rib fractures. Patient likely has a rib contusion causing her discomfort. Patient was given an incentive spirometer as well as teaching. She was given Lidoderm in tizanidine. She was also educated on Tylenol and ibuprofen use. Patient and family at bedside were agreeable to this plan. Given strict return precautions. Differential Diagnosis Differential diagnosis: Likely other (Fracture, contusion or pneumothorax, internal organ injury) Medical Records Attestation: I reviewed the patient's medical records. Imaging Data Attestation: I personally reviewed and interpreted this imaging study as follows: (CT chest: No rib fractures identified) Radiologist's impression: Impressions Chest CT 12/18/24 12:53 IMPRESSION: 1. Small patchy, reticular and bandlike opacities in the lower lungs, greater on the right.] Differential includes atelectasis/scarring or infiltrates. 2. No CT evidence for a rib fracture at this time. If symptoms persist or worsen, consider a short-term follow-up study or additional imaging for further assessment. Discharge Plan Discharge Clinical Impression: Contusion of rib on left side Patient Disposition: Home Condition: Stable Instructions: Antibiotic Form, How to Use an Incentive Spirometer (ED), Contusion in Adults (ED) Additional Instructions: CT scan showed no evidence of rib fractures. You likely have rib contusions. Take Tylenol and ibuprofen for your pain. Your given prescriptions for tizanidine and Lidoderm, use these as prescribed. Follow-up with your PCP in the next week for re-evaluation. Return to the ED for any new or worsening symptoms. Patient Language: Citizen Of [place] Prescriptions: New tizanidine 4 mg tablet 4 mg PO Q8H PRN (Reason: muscle spasticity) Qty: 30 0RF lidocaine [Lidoderm] 5 % adhesive patch,medicated 1 patch topical DAILY Qty: 15 0RF Rx Instructions: leave on most painful area for up to 12 hrs No Action triamcinolone acetonide 0.1 % cream 1 applic topical BID 7 Days Qty: 15 0RF duloxetine 30 mg capsule,delayed release(DR/EC) 30 mg PO .every other day albuterol sulfate [Ventolin HFA] 90 mcg/actuation HFA aerosol inhaler 1 inh inhalation Q4H PRN (Reason: shortness of breath or wheezing) Qty: 6.7 0RF aspirin [Adult Low Dose Aspirin] 81 mg tablet,delayed release (DR/EC) 81 mg PO DAILY Qty: 90 4RF bupropion HCl [Wellbutrin XL] 150 mg tablet extended release 24 hr 150 mg PO QAM magnesium glycinate 400 mg PO QHS olanzapine 10 mg tablet 10 mg PO QHS rosuvastatin [Crestor] 10 mg tablet 10 mg PO DAILY Qty: 90 3RF lutein 20 mg tablet 20 mg PO DAILY Rx Instructions: give with meal/snack trazodone 50 mg tablet 50 mg PO QHS PRN (Reason: Sleep) cholecalciferol (vitamin D3) 1,250 mcg (50,000 unit) capsule 1,250 mcg PO WEEKLY Qty: 13 2RF Rx Instructions: Pt states she takes medication on wednesdays tiotropium bromide [Spiriva with HandiHaler] 18 mcg capsule, w/inhalation device 1 cap inhalation DAILY Qty: 90 3RF Rx Instructions: puncture 1 cap using device; one dose = 2 inhalations levothyroxine 50 mcg tablet See Rx Instructions .ROUTE .COMPLEX Qty: 100 2RF Dose Instruction: TAKE 1 TABLET BY MOUTH DAILY Rx Instructions: TAKE 1 TABLET BY MOUTH DAILY pantoprazole 40 mg tablet,delayed release (DR/EC) See Rx Instructions .ROUTE .COMPLEX Qty: 100 2RF Dose Instruction: TAKE 1 TABLET BY MOUTH DAILY Rx Instructions: TAKE 1 TABLET BY MOUTH DAILY Follow-up/Referrals: Nguyen Mccabe DO [Primary Care Provider, Family Practice]
[2024-12-18] MEDS: LIDOCAINE 5% PATCH 1 PATCH TRANSDERM (12:42)
[2024-12-18] MEDS: MORPHINE SULFATE (*CRX) 4 MG/ML INJ 2 MG IV PUSH (12:43)
[2024-12-18 12:45] VITALS: BP 135/72; PULSE 78; RESP 20; O2SAT 94
== END 2024-12-18 14:20 | disposition home or self-care (01) ==
PROVIDERS: Emergency Provider Student in an Organized Health Care Education/Training Program; PCP Family Medicine
DX: S20.212A Contusion of left front wall of thorax, initial encounter (principal); J44.9 Chronic obstructive pulmonary disease, unspecified; I10 Essential (primary) hypertension; E03.9 Hypothyroidism, unspecified; Z87.891 Personal history of nicotine dependence; Z79.899 Other long term (current) drug therapy; W01.0XXA Fall on same level from slipping, tripping and stumbling without subsequent striking against object, initial encounter
CPT/HCPCS: 71250; 96374; 99284; A9270; J2270

== ENCOUNTER → 2024-12-25 12:03 | Outpatient (CLI) | payer MEDICARE, SELFPAY ==
--- NOTE | ~2024-12-25 | XR_ITS ---
EXAMINATION: XR elbow LT min 3V, 12/25/2024 12:10 CDT HISTORY: M79.602 - Pain in left arm COMPARISON: No comparisons available. Findings: No acute fracture or malalignment. No significant degenerative changes. Soft tissues unremarkable. Impression: No acute fracture or malalignment. Reviewed, dictated and finalized at location P. Impression: No acute fracture or malalignment.
--- NOTE | ~2024-12-25 | XR_ITS ---
EXAMINATION: XR wrist LT min 3V, 12/25/2024 12:10 CDT HISTORY: M25.532 - Pain in left wrist COMPARISON: No comparisons available. Findings: No acute fracture or malalignment. No significant degenerative changes. Soft tissues unremarkable. Impression: No acute fracture or malalignment. Reviewed, dictated and finalized at location P. Impression: No acute fracture or malalignment.
--- NOTE | ~2024-12-25 | XR_ITS ---
EXAMINATION: XR humerus LT, 12/25/2024 12:10 CDT HISTORY: M79.602 - Pain in left arm COMPARISON: No comparisons available. Findings: No acute fracture or malalignment. No significant degenerative changes. Soft tissues unremarkable. Impression: No acute fracture or malalignment. Reviewed, dictated and finalized at location P. Impression: No acute fracture or malalignment.
== END ==
LOC: EXPCRAD 12:04
PROVIDERS: PCP Family Medicine; Visit Provider Family Medicine
DX: M79.602 Pain in left arm (principal); M25.532 Pain in left wrist
CPT/HCPCS: 73060; 73080; 73110

== ENCOUNTER 2025-02-25 00:57 | Day surgery (SDC) | payer MEDICARE, SELFPAY ==
--- OUTSIDE RECORDS SUMMARY | 2024-11-02 02:30 | XMS_ITS ---
Author Organization [facility] Address [address] [facility] [address] [place] [address] Care Team Providers Care Operator Engineer Name Role Phone Nguyen Mccabe DO Primary Care Provider Kellie Lopez Unavailable [phone] REASON FOR VISIT 1 month f/u Social History Sex Assigned At : Social History Observation Description Sex Assigned At Female Encounters Encounter Location Date Provider Diagnosis [facility] [address] [place] [address] 11/02/2024 Kellie Cardoso Plan Of Treatment Next Appt Details Provider Name:Simone Lehman , 02/27/2025 10:30:00 AM, [address], [facility] [address], [place], [address], Progress Notes * SUKUMAR MOSS ADOB:1944 (79 yo F)Acc No.[id number]:11/02/2024 Patient: Jacek SUKUMAR JOHNSON Provider: Cory Cardoso :1945 A ge:79 Y S ex:Female Date:11/02/2024 Address:[address] [place] [address], [facility] Pcp:Nguyen Mccabe DO Subjective: * Chief Complaints: * 1 month f/u Billing Information: * Procedure Codes: * Electronic signature of Adelso Cardoso on 02/25/2025 at 01:00 AM SALES OPERATIONS ASSOCIATE Sign off status: Pending * Provider: Cory Cardoso Date: 0 11/02/2024 Generated for Og lopez/Ac/Eran on: 1 04/28/2024 01:00 AM SALES OPERATIONS ASSOCIATE
[2025-02-08 15:36] VITALS: BMI 36.6
--- NOTE | 2025-02-08 15:54 | PC.NURSE ---
[facility] has started construction of its new state of the art ER which will open Spring 2026. With this, we anticipate parking may be a challenge for some our surgical patients and families. Parking spaces are limited but are available for all Surgical, obstetrics, and ER patients sharing this lot. If you arrive and find you are having a hard time finding a parking space, please note that we understand the challenges, please drive around the hospital and park near Hospital Entrance 1. When you enter this entrance, you can ask a volunteer to direct or take you back to the surgical waiting area to check in. We appreciate everyone?s understanding of these expected challenges while we build for your future. Report to the Outpatient Waiting Room, entrance under the green pavilion located off [address], at time ___8:00AM____ on date ___02/25/25____. Planned Procedure Time: ___10:00AM .? Time changes happen often and if your time is changed the preop area will call you the afternoon before. - You and your visitor will be asked to self-screen and do not enter if you have any COVID symptoms. Please call surgeon if you need to reschedule. - A mask is optional within the hospital at this time. Patients may have clear liquids (water, carbonated beverages, clear teas, apple juice) until 3 hours prior to surgery (7:00AM) with a maximum of 20 ounces. - No food from midnight until time of surgery and no smoking, or chewing tobacco (or any form of nicotine). No chewing gum, candy or mints. Take only the following medications with a SIP of water on the morning of surgery: __BUPROPION, LEVOTHYROXINE, SPIRIVA INHALER MAY TAKE PROCHLORPERAZINE AND ALBUTEROL INHALER NEEDED DO NOT STOP ANY OF YOUR OTHER PRESCRIPTION MEDICATIONS PRIOR TO SURGERY EXCEPT THE FOLLOWING Hold all vitamins and supplements for 3 days per anesthesiologist. LAST DOSE 02/21/25 Medications to discontinue per physician ____HOLD ASPIRIN 7 DAYS PRE-OP PER DR MCKINNON Date to take last dose____02/17/25 Please no make-up, nail japanese, hairspray, perfume, deodorant, or body powder the day of surgery.? No jewelry (including any body piercings) or valuables the day of surgery, leave them at home.? Please take a shower or bath the night before, or the morning of, surgery with an antibacterial soap.? Wear comfortable, loose fitting clothing.? Children are encouraged to wear pajamas. - Jewelry must be removed prior to entering the operating room.? Rings and piercings that are not removed may be cut off. - The hospital will not accept responsibility for valuables.? - Please leave all valuables, including medications, at home the day of surgery. If you are going home after surgery, a licensed moving van driver must drive you home.? - NO public transportation without another adult if you receive anesthesia. - We recommend that an adult stay with you for 24 hours following discharge. - We also recommend that you do not drive, make important decision, drink alcoholic beverages, or take any drugs that were not prescribed by your health care provider for at least 24 hours after your discharge time. Follow any additional instructions given to you from your surgeon. Telephone instructions given to ___PATIENT and asked if any additional questions and then verbalized understanding. Patient advised to call surgeon office or pre surgery nurse liaison [phone] if any additional questions.
--- NOTE | 2025-02-21 07:08 | PM.IMHP2 ---
H&P: HPI History of Present Illness Date/Time: 02/21/25 07:08 Chief Complaint: Patient is knee pain right. She has mechanical catching and locking of the knee. She has failed conservative treatment. By MRI and physical examination she has a meniscal tear. She would like to consider arthroscopic intervention at this time. Review of Systems Musculoskeletal: Musculoskeletal: Reports arthralgias, Reports joint swelling and Reports stiffness Neurologic: Reports abnormal gait [facility] Past Medical History Medical History BMI over 35 Class 2 severe obesity with serious comorbidity and body mass index (BMI) of 37.0 to 37.9 in adult Tardive dyskinesia Peripheral neuropathy Peripheral neuropathy Osteoporosis Anxiety GERD (gastroesophageal reflux disease) Unilateral primary osteoarthritis, right knee Sciatica of left side Stress incontinence Spinal stenosis DISH (diffuse idiopathic skeletal hyperostosis) cxr 08/2017 Depression Bipolar disorder Schizophrenia Hypothyroid Finger fracture Fibroids IBS (irritable bowel syndrome) Sleep apnea COPD (chronic obstructive pulmonary disease) CPAP (continuous positive airway pressure) dependence HTN (hypertension) Glaucoma Fuchs' corneal dystrophy Surgical History Surgical History History of sinus surgery (07/2023) Balloon sinuuloplasty H/O breast surgery fibroid/lump Right breast 1999 History of cholecystectomy 01/2016 History of hemorrhoidectomy History of rectal surgery rectal prolapse repair History of discectomy History of laminectomy 2016 History of bladder surgery urethra tied up for stress incontinence H/O bilateral oophorectomy partial History of appendectomy Family History Family History (Updated 02/07/25 @ 07:53 by LILY Hinds) Sibling Depression Heart disease Diabetes mellitus Father Diabetes mellitus Mother Oral cancer Grandparent CAD (coronary artery disease) Sibling No problems noted. Other Arthritis Hypertension Neuropathy Social History Social History (Updated 02/07/25 @ 13:02 by LILY Hinds) Smoking packs per day: 3 Smoking cigarettes per day: 60.0 Years smoked: 40 Smoking pack-years: 120.00 Smoking status: Former smoker Tobacco type: cigarettes Second hand tobacco smoke exposure: Yes Smoking end date: 09/18/97 Alcohol intake: former Alcohol use details: SOBER 49 YEARS Substance use: never Substance use type: does not use Lack of Transportation: No Lack of Food: Never True Current Housing: I Have Housing Concerned About Future Housing: No Difficulty Paying Gas/Electric Bills: No Difficulty Paying for Meds: No Currently Unemployed: No Education: Bachelor's Degree Difficulty w/ Childcare or Family Care: No Living arrangements: alone 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 Gender identity (if verbalized by the patient): Female Sexual Orientation (if Verbalized by the Patient): Straight or Heterosexual Spiritual care concerns: No Agree to blood products: Yes Meds Home Medications and Allergies Home Medications ?Medication ?Instructions ?Recorded ?Confirmed ?Type aspirin 81 mg tablet,delayed 81 mg PO DAILY #90 tabs 02/29/24 02/08/25 Rx release (Adult Low Dose Aspirin) albuterol sulfate 90 mcg/actuation 1 inh inhalation Q4H PRN shortness 04/18/24 02/08/25 Rx aerosol inhaler (Ventolin HFA) of breath or wheezing #6.7 grams tiotropium bromide 18 mcg capsule 1 cap inhalation DAILY #90 04/23/24 02/08/25 Rx with inhalation device (Spiriva inhalations with HandiHaler) lutein 20 mg tablet 20 mg PO EVERY OTHER DAY 05/31/24 02/08/25 History bupropion HCl 150 mg 24 hr tablet, 150 mg PO QAM 07/03/24 02/08/25 History extended release (Wellbutrin XL) rosuvastatin 10 mg tablet (Crestor) 10 mg PO DAILY #90 tabs 08/30/24 02/08/25 Rx pantoprazole 40 mg tablet,delayed See Rx Instructions .Route 11/08/24 02/08/25 Rx release .COMPLEX #100 tabs viloxazine 100 mg capsule,extended 100 mg PO QAM 12/26/24 02/08/25 History release 24 hr prochlorperazine maleate 5 mg 5 mg PO Q8H PRN nausea and 01/03/25 02/08/25 Rx tablet (Compazine) vomiting #20 tabs levothyroxine 50 mcg tablet 50 mcg PO DAILY #100 tabs 01/23/25 02/08/25 Rx magnesium 200 mg tablet 400 mg PO HS 02/08/25 02/08/25 History olanzapine 10 mg tablet 10 mg PO HS 02/08/25 02/08/25 History trazodone 100 mg tablet 100 mg PO HS PRN insomnia 02/08/25 02/08/25 History cholecalciferol (vitamin D3) 25 25 mcg PO DAILY #90 caps 02/13/25 Rx mcg (1,000 unit) capsule amoxicillin 875 mg-potassium 1 tablet PO BID #14 tabs 02/20/25 Rx clavulanate 125 mg tablet Allergies Allergy/AdvReac Type Severity Reaction Status Date / Time hydroxyzine Allergy Unknown Unknown Verified 02/08/25 15:25 prednisone Allergy Unknown MAKES Verified 02/08/25 15:25 PATIENT MANIC clonazepam AdvReac Unknown JERAD Verified 02/08/25 15:25 diphenhydramine AdvReac Unknown HYPERACTIVE Verified 02/08/25 15:25 zolpidem AdvReac Unknown HYPERACTIVE, Verified 02/08/25 15:25 INSOMNIA ANTIHISTAMINE AdvReac Hyperactive Uncoded 02/08/25 15:35 Exam Narrative: On exam she is tender medially. She has mechanical catching and locking with manipulation. She has a positive Dk's sign. And tenderness along the joint line. She walks with an antalgic gait. Eyes: General: appearance normal, both eyes and all related structures Neck: Neck: supple Resp: Effort & Inspection: normal respiratory effort Cardio: Rate: regular rate Rhythm: regular rhythm Radiology Reports: Comments: Magnetic Resonance Report Signed Patient: Shay Crouch MRI of the right knee Clinical history: Pain Technique: Coronal proton density and proton density-weighted images, sagittal proton-density and T2 fat-sat images, and axial proton-density fat-saturated images were acquired. Findings: Anterior and posterior cruciate ligaments are intact. Medial collateral ligament and the lateral collateral ligament complex are intact. Popliteus tendon intact. Probable radial tear at the posterior root of the medial meniscus. No lateral meniscal tear evident. 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 There is extensive high-grade chondromalacia of the femoral trochlea. There is high-grade chondromalacia at the medial joint line. Small tricompartmental osteophyte are present. There is probable low grade partial tearing of the distal quadriceps tendon at its patellar insertion, involving the posterior fibers. Patellar tendon intact. Minimal joint effusion. No Weston's cyst. Impression: Radial tear at the posterior root of the medial meniscus. Probable low-grade partial tearing of the distal quadriceps tendon posteriorly at its patellar insertion. Advanced degenerative change of the patellofemoral compartment. Moderate degenerative change of the medial compartment. Mild degenerative change of the lateral compartment. Reviewed, dictated and finalized at [facility]. Elbow X-Ray 12/25/24 Foot X-Ray 05/04/24 Humerus X-Ray 12/25/24 Knee X-Ray 09/05/24 Knee MRI 09/14/24 Wrist X-Ray 12/25/24 Orthopedics Result Report 10/22/21 Cervical Spine X-Ray 04/27/23 Lumbar Spine X-Ray 01/11/22 Assessment and Plan Assessment and plan (1) Acute medial meniscus tear of right knee: Code(s): S83.241A - Other tear of medial meniscus, current injury, right knee, initial encounter Status: Acute Assessment and Plan: Patient has meniscal tear right knee. She has mechanical catching and locking of the knee. She has pain to palpation manipulation. And she walks an antalgic gait. She has failed conservative treatment. She would like to consider arthroscopic intervention. I discussed treatment options with her including the risks, benefits, limitations, and alternatives. She would like to proceed. Will proceed with arthroscopy of the right knee partial meniscectomy proceed as indicated.
[2025-02-25] VITALS (9 sets, daily range): BP systolic 122–175; BP diastolic 61–90; PULSE 71–79; RESP 12–20; TEMP 36.2–37; O2SAT 95–100
--- OUTSIDE RECORDS SUMMARY | 2025-02-25 00:59 | XMS_ITS | Clinical Summary ---
Author Organization [facility] Address [address] [place], [address] [address] Phone Care Team Providers Care Washing Machine Operator Name Role Phone Wing Carrasco MD Primary Care Provider + Shirin Renner MD Unavailable [phone] Sonu Fernandez DO Unavailable [phone] Allergies Active Allergy Reactions Criticality Noted [...] Take 400 Units by mouth daily. Active Bradshaw-3 Fatty Acids (OMEGA-3 FISH OIL) 1000 MG [...] Covid-19 Vaccine, Vector-nr, Rs-ad26, Pf, 0.5 Ml ([employer]/J&bulletn.) 05/26/2020 Family History Medical History Relation Name [...] age to complete this topic Care Teams Washing Machine Operator Relationship Specialty Start Date End Date Wing Carrasco MD PCP - General Family Medicine 02/09/16 Shirin Renner MD [address] [facility] [address] [place] [id number] Internal Medicine 02/11/16 Sonu Fernandez DO [address] [facility] [address] [place] [id number] Gastroenterology 02/11/16
--- OUTSIDE RECORDS SUMMARY | 2025-02-25 00:59 | XMS_ITS | Clinical Summary ---
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
--- OUTSIDE RECORDS SUMMARY | 2025-02-25 00:59 | XMS_ITS | Clinical Summary ---
Author Organization [facility] Address [address] [place] [address] Care Team Providers Care Family And Consumer Education Teacher Name Role Phone Unavailable Primary Care [...] 75+ series) 2018 COVID-19 Vaccine ( - 2024-2 6 season) 2024 Influenza Adult (#1) 2024 Hepatitis A Vaccines Aged Out No long er eligible based on patient's age to complete this topic Meningococcal B Vaccine Aged Out No l onger eligible based on patient's age to complete this topic Meningococcal Vaccine Aged Out No mic javier eligible based on patient's age to complete this topic RSV Immunizations Under 20 Months Aged Out No longer eligible based on patient's age to complete this topic Advance Directives Documents on File Type Date Recorded 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
--- OUTSIDE RECORDS SUMMARY | 2025-02-25 00:59 | XMS_ITS | Encounter Summary ---
Author Organization [facility] Address 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
--- OUTSIDE RECORDS SUMMARY | 2025-02-25 00:59 | XMS_ITS | Encounter Summary ---
Author Organization [facility] Address 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
--- OUTSIDE RECORDS SUMMARY | 2025-02-25 01:00 | XMS_ITS | Clinical Summary ---
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 Gender Identity Not on file Sexual Orientation Not on file Last Filed Vital Signs Vital Sign Reading Time Taken Comments Blood Pressure 121/68 07/23/2016 8:08 AM CDT Pulse 52 07/23/2016 8:08 AM CDT Temperature - - Respiratory Rate - - Oxygen Saturation 98% 07/23/2016 8:06 AM CDT Inhaled Oxygen Concentration - - Weight 65.3 kg (144 lb) 02/08/2018 10:16 AM SUPERVISOR SCRAP PREPARATION Height 157.5 cm (5' 2) 02/08/2018 10:16 AM SUPERVISOR SCRAP PREPARATION Body Mass Index 26.34 02/08/2018 10:16 AM SUPERVISOR SCRAP PREPARATION Plan of Treatment Not on file Insurance [facility] MEDICARE ADVANTAGE [facility] MEDICARE ADVANTAGE Care Teams Loan Review Officer Relationship Specialty Start Date End Date Wing Carrasco MD PCP - General 12/12/15
--- OUTSIDE RECORDS SUMMARY | 2025-02-25 01:00 | XMS_ITS | Patient Health Record ---
Author Organization [facility] [employer] Address [address] [place] [address] Care Team Providers Care Case Consultant Name Role Phone Nguyen Mccabe DO Primary Care Provider UnavailKellie Fisher Unavailable [phone] Gerard Corral Unavailable [phone] Allergies Allergen (clinical drug ingredient) Drug/Non Drug Allergy documented on EMR Reaction Allergy Type Onset Date Status clonazepam clonazePAM Unknown Drug Allergy 06/23/2023 Acti ve predniSONE Unknown Drug Allergy 06/23/2023 Activ e diphenhydramine Diphenhydramine Unknown Drug Allergy 06/22 Active Reason For Referral No Information Medications Medication SIG (Take, Route, Frequency, Duration) Notes Start Date End Date Status Levothyroxine Sodium 50 MCG Tablet Oral 06/23/2023 Active Pantoprazole Sodium 40 MG Tablet Delayed Release Oral 06/23/2023 Active Ergocalciferol 1.25 MG (08612 UT) Capsule Oral 06/23/2023 Active Vilazodone HCl 10 MG Tablet TAKE 1 TABLET BY MOUTH ONCE DAILY WITH FOOD; Duration: 30 no 1 yr, may change medications. Active buPROPion HCl ER (XL) 150 MG Tablet Extended Release 24 Hour 1 tablet in the morning Oral daily; Duration: 30 days 01/18/2025 Active Lybalvi 10-10 MG Tablet 1 tablet Orally Once a day; Duration: 14 days samples given do not send/fill 01/18/2025 Active Ozempic (0.25 or 0.5 MG/DOSE) 2 MG/3ML Solution Pen-injector as directed Subcutaneous Not-Taking traZODone HCl 100 MG Tablet 1 tablet at bedtime Oral Once a day; Duration: 90 days As needed 01/18/2025 Active Anoro Ellipta 62.5-25 MCG/INH Aerosol Powder Breath Activated Inhalation 06/23/2023 Unknown Rosuvastatin Calcium 10 MG Tablet Oral; Duration: 30 Days Active Tamsulosin HCl 0.4 MG Capsule Oral 06/23/2023 Not-Taking Immunizations Vaccine Route Administration Date Status Comme nts Influenza, high dose seasonal Unknown 12/26/2014 Admini stered Influenza, seasonal, injecta ble, preservative free, 3 yrs and above Unknown 12/20/2015 Administered [employer] Covid-19 Vaccine Unknown 05/26/2020 Administere d [employer] Covid-19 Vac cine 2nd dose Unknown 02/05/2021 Administered Pneumococcal conjugate PCV 13 Unknown 04/09/2016 Admini stered Social History Tobacco Use: Social History Observation Description Date Details (start date - stop date) Former Smoker NA - 05/17/1997 Sex Assigned At : Social History Observation Description Sex Assigned At Female Social History Household: Social Info Question Answer Notes Household Marital status: Number of adults in household: 2 garland cuellar lives with her Drug/Alcohol: Social Info Question Answer Notes Caffeine Intake: a little Tobacco Use: Social Info Question Answer Notes Tobacco Control (Standard) How long has it been since you last smoked? Greater than 10 years Tobacco use: Former smoker When did you stop smoking? 05/17/1997 Additional Details Category Social Info Options Details Migrated Social History Migrated Social History Alcohol Intake: None 2018,Tobacco Years: Former smoker 02/11/2023 Drug/Alcohol: Do you smoke marijuana? Den ies Do you drink alcohol? No Problems Problem Type SNOMED Code ICD Code Onset Dates Problem Status W/U Status Risk Notes Problem Generalized anxiety disorder (97033836) Generalized anxiety disorder (F41.1) Active confirmed Problem Primary insomnia (2731284) Primary insomnia (F51.01) Active confirmed Problem Insomnia (571713285) Other insomnia (G47.09) Active confirmed Problem Bipolar 1 disorder (648370876) Bipolar 1 disorder (F31.9) Active confirmed Problem Tardive dyskinesia (363643309) Tardive dyskinesia (G24.01) Active confirmed Vital Signs Heart Rate 85 /min 01/18/2025 Height-cm 162.61 cm 01/18/2025 Blood pressure diastolic 77 mm Hg 01/18/2025 Weight-kg 90.72 kg 01/18/2025 Height 64.02 in 01/18/2025 Blood pressure systolic 139 mm Hg 01/18/2025 Weight 200 lbs 01/18/2025 BMI 34.3 kg/m2 01/18/2025 Encounters Encounter Location Date Provider Diagnosis [facility] [place] [address] [facility] [address] [place] [address] 04/26/2024 Thendidier SubramanianShayna Schizoaffective disorder, bipolar type F25.0 ; Generalized anxiety disorder F41.1 and Other insomnia G47.09 [facility] [place] [address] [address] 06/22/2024 Kellie Hagopian Schizoaffective disorder, bipolar type F25.0 ; Generalized anxiety disorder F41.1 ; Other insomnia G47.09 ; Encounter for screening for cardiovascular disorders Z13.6 and Encounter for screening for depression Z13.31 [facility] [place] [address] [address] 07/27/2024 Kellie Hagopian Schizoaffective disorder, bipolar type F25.0 ; Negative depression screening Z13.31 ; Generalized anxiety disorder F41.1 ; Other insomnia G47.09 and Benign essential HTN I10 [facility] [place] [address] [address] 08/31/2024 Kellie Hagopian Schizoaffective disorder, bipolar type F25.0 ; Generalized anxiety disorder F41.1 ; Other insomnia G47.09 ; Tardive dyskinesia G24.01 and Negative depression screening Z13.31 [facility] [place] [address] [address] 10/05/2024 Kellie Hagopian Generalized anxiety disorder F41.1 ; Schizoaffective disorder, bipolar type F25.0 ; Tardive dyskinesia G24.01 and Other insomnia G47.09 [facility] [place] [address] [address] 11/06/2024 Kellie Hagopian Tardive dyskinesia G24.01 ; Schizoaffective disorder, bipolar type F25.0 ; Other insomnia G47.09 and Generalized anxiety disorder F41.1 [facility], [facility] [address] [place] [address] 12/07/2024 Kellie Hagopian Schizoaffective disorder, bipolar type F25.0 ; Generalized anxiety disorder F41.1 ; Tardive dyskinesia G24.01 and Primary insomnia F51.01 [facility], [facility] [address] [place] [address] 01/04/2025 Kellie Hagopian Generalized anxiety disorder F41.1 ; Bipolar 1 disorder F31.9 and Primary insomnia F51.01 [facility], [facility] [address] [place] [address] 01/18/2025 Kellie Hagopian Generalized anxiety disorder F41.1 ; Bipolar 1 disorder F31.9 and Primary insomnia F51.01 [facility], [facility] [address] [place] [address] 03/30/2024 Thena Shayna Schizoaffective disorder, bipolar type F25.0 [facility], [facility] [address] [place] [address] 05/30/2024 Kellie Zainopian Schizoaffective disorder, bipolar type F25.0 [facility], [facility] [address] [place] [address] 11/02/2024 Kellie Zainopian Schizoaffective disorder, bipolar type F25.0 [facility], [facility] [address] [place] [address] 11/08/2024 Kellie Pittmanopian [facility], [facility] [address] [place] [address] 11/27/2024 Kellie Pittmanopian Generalized anxiety disorder F41.1 [facility], [facility] [address] [place] [address] 12/19/2024 Kellie Cardoso [facility], [facility] [address] [place] [address] 01/24/2025 Kellie Pittmanopian Bipolar 1 disorder F31.9 [facility], [facility] [address] [place] [address] 01/25/2025 Kellie Cardoso [facility], [facility] [address] [address] 06/22/2024 Kellie Cardoso Assessments Encounter Date Diagnosis (ICD Code) Assessment Notes Treatment Notes Treatment Clinical Notes Section Notes 04/26/2024 Schizoaffective disorder, bipolar type (ICD-10 - F25.0) 04/26/2024 Generalized anxiety disorder (ICD-10 - F41.1) 10/05/2024 Schizoaffective disorder, bipolar type (ICD-10 - F25.0) 10/05/2024 Generalized anxiety disorder (ICD-10 - F41.1) 08/31/2024 Schizoaffective disorder, bipolar type (ICD-10 - F25.0) 08/31/2024 Generalized anxiety disorder (ICD-10 - F41.1) 11/02/2024 Schizoaffective disorder, bipolar type (ICD-10 - F25.0) 11/06/2024 Schizoaffective disorder, bipolar type (ICD-10 - F25.0) 11/06/2024 Tardive dyskinesia (ICD-10 - G24.01) 11/27/2024 Generalized anxiety disorder (ICD-10 - F41.1) 12/07/2024 Schizoaffective disorder, bipolar type (ICD-10 - F25.0) 12/07/2024 Generalized anxiety disorder (ICD-10 - F41.1) 03/30/2024 Schizoaffective disorder, bipolar type (ICD-10 - F25.0) 05/30/2024 Schizoaffective disorder, bipolar type (ICD-10 - F25.0) 06/22/2024 Schizoaffective disorder, bipolar type (ICD-10 - F25.0) 07/27/2024 Schizoaffective disorder, bipolar type (ICD-10 - F25.0) 01/04/2025 Generalized anxiety disorder (ICD-10 - F41.1) 01/04/2025 Bipolar 1 disorder (ICD-10 - F31.9) 01/18/2025 Generalized anxiety disorder (ICD-10 - F41.1) 01/24/2025 Bipolar 1 disorder (ICD-10 - F31.9) 01/18/2025 Primary insomnia (ICD-10 - F51.01) 01/18/2025 Bipolar 1 disorder (ICD-10 - F31.9) 01/04/2025 Primary insomnia (ICD-10 - F51.01) 11/06/2024 Other insomnia (ICD-10 - G47.09) 12/07/2024 Tardive dyskinesia (ICD-10 - G24.01) 07/27/2024 Generalized anxiety disorder (ICD-10 - F41.1) 06/22/2024 Generalized anxiety disorder (ICD-10 - F41.1) 07/27/2024 Negative depression screening (ICD-10 - Z13.31) 10/05/2024 Tardive dyskinesia (ICD-10 - G24.01) 08/31/2024 Other insomnia (ICD-10 - G47.09) 04/26/2024 Other insomnia (ICD-10 - G47.09) 10/05/2024 Other insomnia (ICD-10 - G47.09) 08/31/2024 Tardive dyskinesia (ICD-10 - G24.01) Electronic Prior Authorization was requested for Ingrezza 40 MG Capsule. Provider can order medication once approval received. 11/06/2024 Generalized anxiety disorder (ICD-10 - F41.1) 12/07/2024 Primary insomnia (ICD-10 - F51.01) 06/22/2024 Other insomnia (ICD-10 - G47.09) 07/27/2024 Other insomnia (ICD-10 - G47.09) 07/27/2024 Benign essential HTN (ICD-10 - I10) 06/22/2024 Encounter for screening for cardiovascular disorders (ICD-10 - Z13.6) 08/31/2024 Negative depression screening (ICD-10 - Z13.31) 06/22/2024 Encounter for screening for depression (ICD-10 - Z13.31) 06/22/2024 Other Shay Weber, an 79-year-old female [...] any changes or worsening of symptoms 07/27/2024 Other Shay Weber, female patient, presents for follow-up of [...] 4 weeks Sleep Disturbance Assessment: 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 She is able to fall back asleep unless it's between 4-5 AM. Patient has been using [id number] magnesium supplements from [employer] to aid sleep. Plan: - Continue current [...] situation led to the nephew's admission to [facility] approximately 1.5 weeks ago. Patient expresses feelings [...] to assess efficacy and tolerability of Ingrezza 10/05/2024 Other Shay Weber, female patient, presents with ongoing urinary issues, knee and back pain, and a history of tardive dyskinesia managed with medication. Urinary RetentionAssessme nt: Patient reports ongoing urinary issues, specifically difficulty urinating. She mentions a history of severe urethral infection that required emergency room treatment and catheterization. The patient has been referred to a urologist for further evaluation and management.Plan:- Follow up with urologist as referred by primary care physician- Continue current medication for urinary issues Musculoskeletal PainAssessment: Patient reports ongoing knee and back pain, currently being addressed through physical therapy.Plan:- Continue physical therapy for knee and back Tardive DyskinesiaAssessm ent: Patient has been on Ingrezza (valbenazine) 40 mg for management of tardive dyskinesia. The current dose appears to cause significant fatigue, lasting up to two days after administration. Patient has been taking less than the prescribed dose to manage side effects.Plan:- Discontinue Ingrezza (valbenazine) 40 mg- Start Austedo (deutetrabenazine ) titration pack - Begin with lower dose due to previous fatigue issues with Ingrezza- Provide samples of Austedo for 4 weeks- Follow up in 4 weeks to assess efficacy and tolerability of Austedo compared to Ingrezza DepressionAssessm ent: Patient is currently on duloxetine for depression management. No specific mood concerns were reported during this visit.Plan:- Continue duloxetine 30 mg- Adjust dosing schedule: alternate between 30 mg and 20 mg daily (30-20-30-20 pattern) PsychosisAssessme nt: Patient is maintained on olanzapine for management of psychotic symptoms. No acute concerns reported during this visit.Plan:- Continue olanzapine 10 mg- Refill olanzapine prescription 11/06/2024 Other Shay Quilesough, female patient, presenting for medication management and follow-up of psychiatric symptoms, with recent initiation of Ozempic (semaglutide) injections. Mood Disorder Assessment: Patient reports overall stable mood with occasional down days. She is currently on bupropion 150 mg and duloxetine 30 mg for mood management. There is consideration to reduce duloxetine dose due to potential sexual side effects. 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 Plan: - Decrease duloxetine to 20 mg - Continue bupropion 150 mg - Continue olanzapine 10 mg at beditme - Monitor for changes in mood and anxiety symptoms with medication adjustment - Follow up to assess efficacy of medication changes Tardive Dyskinesia Assessment: Patient previously trialed Austedo for tardive dyskinesia but experienced significant fatigue. Considering re-trial of Ingrezza (valbenazine) for symptom management. Plan: - Restart Ingrezza (valbenazine) 40 mg at night - Monitor for efficacy and side effects, particularly fatigue - Follow up in a couple of weeks to assess tolerance and effectiveness Weight Management Assessment: Patient reports recent weight loss of approximately 10 pounds, attributed to dietary changes and initiation of Ozempic (semaglutide). Currently on third injection of Ozempic with noted decrease in appetite. Plan: - Continue Ozempic (semaglutide) injections as prescribed - Monitor weight and appetite changes - Encourage continuation of healthy dietary habits Medication Side Effects Assessment: Patient reports heat intolerance, which may be exacerbated by bupropion. Additionally, there are concerns about sexual functioning potentially affected by duloxetine. Plan: - Monitor heat tolerance, especially in relation to bupropion use - Assess sexual functioning with reduction of duloxetine dose - Educate patient on potential side effects of medications and when to report concerns Medical Decision Making Shay Weber is a female patient presenting for follow-up of her psychiatric medications and recent initiation of Ozempic (semaglutide) for weight loss. The patient reports feeling pretty good overall, with some mood fluctuations and medication side effects. Clinical reasoning focused on adjusting medications to address side effects while maintaining mood stability. The duloxetine was identified as potentially affecting sexual functioning, leading to a decision to reduce the dose from 30mg to 20mg. Bupropion was continued to support mood and anxiety, but its potential exacerbation of heat intolerance was noted. Olanzapine and Ingrezza (valbenazine) were also discussed, with a plan to retry Ingrezza despite previous fatigue. The clinician considered the complex interplay of multiple psychiatric medications and their potential side effects, balancing the need for symptom control with quality of life concerns. 12/07/2024 Erasmo Weber, a patient with a history of bipolar disorder and recent grief due to the loss of a nephew, presents with mood fluctuations and concerns about medication efficacy and side effects. Bipolar DisorderAssessmen t: Patient reports feeling better overall but with some mood fluctuations. No current hallucinations, delusions, or paranoia reported. Recent grief due to the loss of a nephew may be contributing to mood changes. Current medication regimen includes olanzapine, duloxetine, bupropion, and trazodone. Patient reports sexual side effects and some movement issues, which are described as manageable. The duloxetine increase to 30 mg daily appears to be helping.Plan:- Continue olanzapine 10 mg at nighttime- Continue bupropion 150 mg daily- Taper duloxetine: - Decrease to 20 mg daily for one week, then discontinue- Start vilazodone 10 mg daily - Informed patient this medication may help with sleep and has fewer sexual side effects - Advised of potential weight gain as a side effect- Discontinue trazodone- Consider future switch to Lybalvi (olanzapine + weight kalin) if weight gain becomes a concern- Follow-up appointment in 4 weeks to assess response to medication changes Medical Decision MakingShay Weber is a patient with a history of bipolar disorder and recent grief due to the loss of a close nephew. The patient reports feeling better but still experiencing mood fluctuations. Current medications include duloxetine, bupropion, olanzapine, and trazodone. The decision was made to maintain the current dosage of bupropion at 150mg and duloxetine at 30mg, as increasing both simultaneously could lead to side effects. Olanzapine is continued at 10mg, but a potential switch to Lybalvi, which combines olanzapine with a weight kalin, was discussed to address weight gain concerns. To address sexual side effects and sleep issues, a trial of vilazodone was proposed to replace duloxetine and trazodone. The clinician considered the patient's current symptom profile, medication efficacy, and side effects in formulating this treatment plan. The complexity of managing multiple psychiatric medications while addressing side effects and recent life stressors was evident in the decision-making process. 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 Bipolar disorder Patient has a well-established history of bipolar disorder with three major psychotic episodes (1984, 1995, 2016) characterized by paranoid delusions about her trying to kill her. Episodes typically involve manic symptoms including weight loss and increased appetite, followed by depressive crashes with suicidal ideation. She has milder paranoid symptoms when manic dating back to her twenties. Currently denies significant depression, manic symtpoms, or suicidal thoughts. Plan: - Continue vilazodone 10 mg in morning - Consider increasing vilazodone dose at next visit if needed based on mood and anxiety assessment - Switch from olanzapine to Lybalvi (olanzapine/samid orphan) 10 mg to address weight concerns while maintaining mood stabilization - Provider will provide 2 weeks of samples - Follow-up in 2 weeks to assess mood, anxiety, and medication response Anixety Recently transitioned from duloxetine to vilazodone approximately 10 days ago, taking 10 mg in the morning. Denies concerns presently with anxiety and depression overall, however concerns of nausea are noted. Plan: - Continue vilazodone at current dose of 10 mg to allow more time to adjust to medication - Discussed taking with food to allow for better metabolization and potentiall alleviate nausea - Monitor anxiety levels Nausea Patient reports nausea occurring most days. The nausea occurs at any time of day regardless of timing around meals. She has been taking vilazodone at nighttime without food, which may be contributing to the nausea. Plan: - Switch vilazodone timing from nighttime to morning with food - Monitor nausea Recent fall with injury Patient sustained a fall after tripping on a sock caught on a nail, resulting in impact with couch and table. She continues to have soreness in the affected area. Medical evaluation including imaging was completed to rule out broken ribs or lung injury, which were negative, but she continues to experience pain from the fall. Plan: - Discussed safety measures and fall prevention strategies Medical Decision Making Shay Weber is a patient with a history of bipolar disorder, substance use disorder (49 years sober), and recurrent psychotic episodes during times of hank presenting with nausea and recent fall with ongoing pain. The patient's increased nausea timing coinciding with recent medication changes including transitioning from duloxetine to vilazodone approximately 10 days ago. Given the temporal relationship between medication initiation and symptom onset, medication-induce d nausea is the most likely etiology. She has been taking vilazodone in the evening not with food. The patient's psychiatric history is significant for three major psychotic episodes (1984, 1995, 2016) characterized by paranoid delusions about her and manic features, typically lasting 6 months each, with current stability on olanzapine. Her recent fall resulted in chest wall pain requiring imaging to rule out rib fractures or pulmonary injury, which was negative. The decision to switch from standard olanzapine to Lybalvi (olanzapine/samid orphan combination) addresses potential weight gain concerns while maintaining the same antipsychotic efficacy, particularly relevant given discontinuation of Ozempic. 01/18/2025 Other Shay Weber reports fatigue and sleep disruption due to knee pain, with upcoming surgery scheduled for February 24, while continuing psychiatric medications with stable mood and anxiety. Bipolar Disorder and anxiety Patient reports stable mood with occasional brief episodes of feeling down that resolve spontaneously. Anxiety levels are manageable. No suicidal ideation reported. Current psychiatric medication regimen appears effective with vilazodone 10 mg taken in morning with food, trazodone used intermittently at nighttime, Lybalvi (olanzapine with weight kalin) to address previous weight gain concerns from olanzapine, and bupropion 150 mg. Plan: - Continue Lybalvi - Continue bupropion 150 mg - No medication adjustments planned given upcoming surgery and current stability Anxiety Plan: - Continue vilazodone 10 mg in morning with food Insomnia and Fatigue Patient reports significant fatigue and sleep fragmentation, sleeping only 3-4 hours at a time. Sleep disruption appears related to knee pain that wakes her from sleep. Knee surgery is scheduled for February 24 which may address the underlying pain contributing to sleep issues. Plan: - Continue trazodone as needed at nighttime - Continue current medication regimen without adjustments given upcoming surgery - Monitor sleep patterns and fatigue levels Decreased libido Patient is off Cymbalta and current medications are not typically associated with libido reduction. Decreased libido may be related to increased stress from knee pain or general fatigue rather than medication side effects. Plan: - Monitor libido over 6-8 weeks as effects from previous medications resolve - Consider stress and pain as contributing factors Medical Decision Making Shay Weber is a patient with psychiatric conditions presenting for medication management with reports of fatigue and sleep disturbances. The patient's fatigue is attributed to pain-related sleep disruption from knee issues, with surgery scheduled for February 24, rather than medication-relate d sedation. Current psychiatric medications including vilazodone, trazodone, and the newly initiated Lybalvi (olanzapine with weight kalin) appear to be well-tolerated with stable mood and manageable anxiety levels. The decision to switch from standard olanzapine to Lybalvi was made to mitigate weight gain concerns while maintaining therapeutic efficacy. Sleep pattern shows fragmentation with 3-4 hour intervals, likely related to knee pain rather than psychiatric medication effects. Given the patient's stable mental status with no suicidal ideation or significant depression, and upcoming surgery, the current medication regimen will be maintained without adjustments to avoid potential complications during the perioperative period. Plan Of Treatment Next Appt Details Provider Name:Simone Lehman , 02/27/2025 10:30:00 AM, [address], [facility] [address], [place], [address], Insurance Providers Payer Name Payer Address Payer Phone Subscriber Number Group Number Insured Name Patient Relationship to Insured Coverage Start Date Coverage End Date [facility] Medicare Replacement/ [employer] - Ppo [address] [address] [place] [address] [id number] SHAY LINDSEY Self - patient is the insured Medical (General) History Medical History History ICD Code Problems: Bereavement Body mass index 30+ - obesity Chronic obstructive lung disease Generalized anxiety disorder Metabolic syndrome X Minimal cognitive impairment Persistent insomnia Schizoaffective disorder, bipolar type Hospitalization History Reason Date(Month/Year) chest pains 02/15/2024
--- NOTE | 2025-02-25 11:41 | WPDHPUPDATE1 ---
History and Physical Update Update Date/Time: 02/25/25 11:41 History and Physical has been reviewed, including an updated exam of the patient. There are NO changes in the patient's condition. Risks, benefits, and alternatives have been discussed and questions answered. Patient agrees to proceed with procedure. Will proceed with arthroscopy partial medial meniscectomy right knee proceed as indicated. She is well aware the fact that I cannot change any arthritic areas.
[2025-02-25] MEDS: LACTATED RINGERS 1,000 ML 30 ML IV CONT (11:45)
[2025-02-25] MEDS: ACETAMINOPHEN 500 MG TABLET 1000 MG PO (12:00)
[2025-02-25] MEDS: KETOROLAC 15 MG/ML VIAL (*BKC) IV PUSH (12:00)
--- NOTE | 2025-02-25 12:17 | WPDANESEPPF ---
Anes - Initial Pre Proc Eval Procedure: Operation Date: 02/25/25 13:00 Proposed Procedures p Right Knee Arthroscopy with Partial Meniscectomy, Proceed As Indicated - Aden Morgan MD Date/Time: 02/25/25 12:17 Surgeon: Aden Morgan MD Pre Op Diagnosis: rt knee medial meniscus tear Patient Data Age: 79 Gender: F Height: 1.57 m Weight: 91 kg Allergies Allergy/AdvReac Type Severity Reaction Status Date / Time hydroxyzine Allergy Unknown Unknown Verified 02/08/25 15:25 prednisone Allergy Unknown MAKES Verified 02/08/25 15:25 PATIENT MANIC clonazepam AdvReac Unknown JERAD Verified 02/08/25 15:25 diphenhydramine AdvReac Unknown HYPERACTIVE Verified 02/08/25 15:25 zolpidem AdvReac Unknown HYPERACTIVE, Verified 02/08/25 15:25 INSOMNIA ANTIHISTAMINE AdvReac Hyperactive Uncoded 02/08/25 15:35 Home Medications ?Medication ?Instructions ?Recorded ?Confirmed ?Type aspirin 81 mg tablet,delayed 81 mg PO DAILY #90 tabs 02/29/24 02/08/25 Rx release (Adult Low Dose Aspirin) albuterol sulfate 90 mcg/actuation 1 inh inhalation Q4H PRN shortness 04/18/24 02/08/25 Rx aerosol inhaler (Ventolin HFA) of breath or wheezing #6.7 grams tiotropium bromide 18 mcg capsule 1 cap inhalation DAILY #90 04/23/24 02/08/25 Rx with inhalation device (Spiriva inhalations with HandiHaler) lutein 20 mg tablet 20 mg PO EVERY OTHER DAY 05/31/24 02/08/25 History bupropion HCl 150 mg 24 hr tablet, 150 mg PO QAM 07/03/24 02/08/25 History extended release (Wellbutrin XL) rosuvastatin 10 mg tablet (Crestor) 10 mg PO DAILY #90 tabs 08/30/24 02/08/25 Rx pantoprazole 40 mg tablet,delayed See Rx Instructions .Route 11/08/24 02/08/25 Rx release .COMPLEX #100 tabs viloxazine 100 mg capsule,extended 100 mg PO QAM 12/26/24 02/08/25 History release 24 hr prochlorperazine maleate 5 mg 5 mg PO Q8H PRN nausea and 01/03/25 02/08/25 Rx tablet (Compazine) vomiting #20 tabs levothyroxine 50 mcg tablet 50 mcg PO DAILY #100 tabs 01/23/25 02/08/25 Rx magnesium 200 mg tablet 400 mg PO HS 02/08/25 02/08/25 History olanzapine 10 mg tablet 10 mg PO HS 02/08/25 02/08/25 History trazodone 100 mg tablet 100 mg PO HS PRN insomnia 02/08/25 02/08/25 History cholecalciferol (vitamin D3) 25 25 mcg PO DAILY #90 caps 02/13/25 Rx mcg (1,000 unit) capsule amoxicillin 875 mg-potassium 1 tablet PO BID #14 tabs 02/20/25 Rx clavulanate 125 mg tablet hydrocodone 5 mg-acetaminophen 325 1 tablet PO Q4H PRN pain #30 tabs 02/25/25 Rx mg tablet Patient hx anesthesia problems: none Family hx anesthesia problems: none Results Review: All pre-operative results and documents have been reviewed as part of the pre-operative evaluation. [facility] Past Medical History Medical History BMI over 35 Class 2 severe obesity with serious comorbidity and body mass index (BMI) of 37.0 to 37.9 in adult Tardive dyskinesia Peripheral neuropathy Peripheral neuropathy Osteoporosis Anxiety GERD (gastroesophageal reflux disease) Unilateral primary osteoarthritis, right knee Sciatica of left side Stress incontinence Spinal stenosis DISH (diffuse idiopathic skeletal hyperostosis) cxr 08/2017 Depression Bipolar disorder Schizophrenia Hypothyroid Finger fracture Fibroids IBS (irritable bowel syndrome) Sleep apnea COPD (chronic obstructive pulmonary disease) CPAP (continuous positive airway pressure) dependence HTN (hypertension) Glaucoma Fuchs' corneal dystrophy Surgical History Surgical History History of sinus surgery (07/2023) Balloon sinuuloplasty H/O breast surgery fibroid/lump Right breast 1999 History of cholecystectomy 01/2016 History of hemorrhoidectomy History of rectal surgery rectal prolapse repair History of discectomy History of laminectomy 2016 History of bladder surgery urethra tied up for stress incontinence H/O bilateral oophorectomy partial History of appendectomy Family History Family History Sibling Depression Heart disease Diabetes mellitus Father Diabetes mellitus Mother Oral cancer Grandparent CAD (coronary artery disease) Sibling No problems noted. Other Arthritis Hypertension Neuropathy Social History Social History Smoking packs per day: 3 Smoking cigarettes per day: 60.0 Years smoked: 30 Smoking pack-years: 90.00 Smoking status: Former smoker Tobacco type: cigarettes Second hand tobacco smoke exposure: Yes Smoking end date: 05/17/97 Alcohol intake: former Alcohol use details: SOBER 49 YEARS Substance use: never Substance use type: does not use Lack of Transportation: No Lack of Food: Never True Current Housing: I Have Housing Concerned About Future Housing: No Difficulty Paying Gas/Electric Bills: No Difficulty Paying for Meds: No Currently Unemployed: No Education: Bachelor's Degree Difficulty w/ Childcare or Family Care: No Living arrangements: alone 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 Gender identity (if verbalized by the patient): Female Sexual Orientation (if Verbalized by the Patient): Straight or Heterosexual Spiritual care concerns: No Agree to blood products: Yes Anes - Eval Final PreProcedure Day of Procedure 02/25/25 12:17 Patient weight: obese Heart: regular rate and rhythm Lungs: decreased breath sounds Airway: Mallampati scale class II Neurological: alert and oriented Last oral intake: >/= 8 hours ASA classification: III Emergent: no Anesthetic plan: proceed Anesthesia type and monitoring: general LMA and standard monitoring Results Review: All pre-operative results and documents have been reviewed as part of the pre-operative evaluation. Informed Consent: The patient's anesthetic plan and its attendant risks and benefits were discussed with the patient/family/POA. Questions were solicited and answers provided to the satisfaction of the patient/family/POA.
[2025-02-25] MEDS: ceFAZolin 2 GM in SODIUM CHLORIDE 0.9% IV 50 ML 100 ML IVPB (12:23)
[2025-02-25] MEDS: LIDO 1%/EPINEPHRINE 1:100,000 20 ML VIAL 30 ML INFILTRATE (12:51)
--- NOTE | 2025-02-25 13:13 | W.PM.PROC2 ---
Procedure Note - Detailed Date of Procedure 02/25/25 Pre-op Diagnosis RIGHT knee medial meniscus tear Post-op Diagnosis Same Procedure Performed Right knee arthroscopy with partial meniscectomy Surgeon Aden Morgan MD Anesthesia General Indications Pain, Locking and Catching Description of Procedure Patient brought to operating room # 7. An anesthetic was administered. The knee was sterilely prepped and draped in the usual manner. Standard portals were used. Superior medial portal was used for the outflow cannula, inferior lateral portal was used for the scope, inferior medial portal was used for the instruments. Arthroscopy was performed, the patellar femoral joint degenerative changes. The medial compartment showed a complex tear. The lateral compartment showed fraying. The ACL was intact. Using baskets and ruby the meniscal tear was trimmed back to a stable base so the nothing further could be pulled into the joint. Any loose or delaminated fragments were gently trimmed to a stable base. At this point the instruments were withdrawn, sutures placed and patient left the operating room in satisfactory condition. Estimated Blood Loss 20 Drains No Packing No Pathology None sent Complications No immediate complications Condition Stable Disposition PACU [facility] Billing Surgery - Charge Forward: Surgery Billing ([id number] [facility])
[2025-02-25] MEDS: oxyCODONE HCL (*CRX) 5 MG TAB IR PO (14:44)
== END 2025-02-25 15:36 | disposition home or self-care (01) ==
PROVIDERS: PCP Family Medicine; Visit Provider Orthopaedic Surgery
PROC: (CPT 29870; principal; 2025-02-25 13:00)
DX: M23.331 Other meniscus derangements, other medial meniscus, right knee (principal); Z87.891 Personal history of nicotine dependence; E66.9 Obesity, unspecified; Z68.36 Body mass index [BMI] 36.0-36.9, adult
CPT/HCPCS: 29881; J0690; A9270; J1171; J1885; J2004; J2704; J7120